=== PATIENT | male | born 1970 | race Caucasian/White ===

== ENCOUNTER 2023-05-11 08:40 | Observation (INO) | payer BC, SELFPAY ==
[2023-05-11 08:47] VITALS: BP 131/80; PULSE 90; RESP 18; TEMP 37.1; O2SAT 98
--- NOTE | 2023-05-11 09:00 | DI.RAD_ITS ---
Exam(s) XR HUMERUS RT EXAM: XR HUMERUS RT CLINICAL HISTORY: fall, prox thigh pain. TECHNIQUE: 2D digital imaging was performed of the right humerus. Two images were obtained. AP and lateral views were obtained. COMPARISON: No exams were available for comparison FINDINGS: BONES: No acute fracture is present. No bony destructive lesion is seen. Visualized portion of elbow and shoulder joints are unremarkable. SOFT TISSUE: Normal. IMPRESSION: No acute fracture or dislocation. DATA REPOSITORY: RADIATION DOSE DELIVERED:
--- NOTE | 2023-05-11 09:00 | DI.RAD_ITS ---
Exam(s) XR PELVIS AP EXAM: XR PELVIS AP CLINICAL HISTORY: r hip pain post fall. TECHNIQUE: 2D digital imaging was performed.One images were obtained. COMPARISON: No exams were available for comparison FINDINGS: BONES: No acute fracture is present. No bony destructive lesion is seen. JOINTS: No dislocation present. No joint space narrowing is present. SOFT TISSUE: Normal. IMPRESSION: No acute fracture or dislocation. DATA REPOSITORY: RADIATION DOSE DELIVERED:
--- NOTE | 2023-05-11 09:07 | ED.GENADUL_ITS ---
HPI General Date/Time Provider Initiated Documentation: 05/11/23 08:44 . HPI Narrative: 52-year-old male history of MS, presents in mechanical slip and fall on ice yesterday falling onto his right hip, pain to hip unable to bear weight. Related Data Home Medications Medication Instructions Recorded Confirmed gabapentin 300 mg capsule 300 mg PO TID 05/11/23 05/11/23 Allergies Allergy/AdvReac Type Severity Reaction Status Date / Time No Known Allergies Allergy Unverified 05/11/23 08:50 General Stated Complaint: Orthopedic DEMI: 3 Review of Systems Narrative: Review of Systems Constitutional: negative Eyes: negative ENT: negative Cardiovascular: negative Respiratory: negative Gastrointestinal: negative : negative Musculoskeletal: Right hip pain Skin: negative Neurologic: negative Psych: negative Exam Narrative Exam Narrative: Physical Examination General: alert, awake, cooperative, resting comfortably, no acute distress HEENT: normocephalic, atraumatic; PERRL, EOM intact, conjunctiva normal; no nasal discharge; moist mucous membranes, oral and pharyngeal mucosa normal, tolerating secretions Neck: supple, trachea midline; full ROM Chest: normal to inspection Respiratory: normal respiratory effort, speaking in full sentences, clear to auscultation, no wheezing, rales or rhonchi Cardiac: regular rate, regular rhythm, S1S2 intact, no murmurs rubs or gallops GI: abdomen soft, non-tender, non-distended; no palpable mass or hepatosplenomegaly Back: No back tenderness on palpation Skin: no lesions, rashes or trauma appreciated Neuro: AAOx3, normal speech, moving all extremities Extremities: Right lower extremity: Unable to range right hip due to pain severe in nature, flexion extension and knee intact, dorsiflexion plantarflexion of foot intact, sensation limb intact, DP pulse intact, no appreciable foreshortening or rotation, compartments soft; pelvis stable Psych: Appropriate mood and affect Course Vital Signs Vital signs: Vital Signs Temperature 37.1 C 05/11/23 08:47 Pulse 90 05/11/23 08:47 Respiratory Rate 18 05/11/23 08:47 Blood Pressure 131/80 05/11/23 08:47 Pulse Oximetry 98 05/11/23 08:47 Temperature 37.1 C 05/11/23 08:47 Temperature Source Temporal Artery Scan 05/11/23 08:47 Pulse 90 05/11/23 08:47 Respiratory Rate 18 02/13/24 08:47 Blood Pressure 131/80 05/11/23 08:47 Blood Pressure Position Sitting 05/11/23 08:47 Pulse Oximetry 98 05/11/23 08:47 Oxygen Delivery Method Room Air 05/11/23 08:47 Oxygen Flow Rate 0 05/11/23 08:47 Pain Level 10 05/11/23 08:52 Medical Decision Making 52-year-old male history of MS presents after mechanical slip and fall on ice yesterday, pain to right hip, unable to bear weight, range of motion at right hip limited by discomfort severe in nature, no limb for shortening or rotation appreciated, pelvis stable upon palpation, tenderness over proximal lateral thigh, soft compartments, warm well-perfused extremity DP pulse intact sensate, range of motion at knee ankle and foot intact, no cranial thoracic or abdominal trauma noted, no spinal tenderness on examination, patient hemodynamically stable although uncomfortable. Will load with IV fentanyl, will draw basic labs for likely admission concern for hip fracture versus dislocation versus pelvic fracture. Screening x-rays close reassessment of discomfort 15: 29 x-ray is unremarkable however given patient's degree of pain high clinical suspicion for occult fracture, CT positive for right acetabular fract ure nondisplaced. Discussed case with Dr. Law of orthopedic surgery who instructs toe-touch level of weightbearing right lower extremity with aid of crutches/walker as tolerated, however patient can barely tolerate small motions and movement upon transferring in bed and transferring to imaging table, patient unable to perform toe-touch level weightbearing, have reached out to orthopedic team at [facility] for possible operative intervention, otherwise patient will need admission for pain control possible rehabilitation placement. 15: 22 [facility] has declined due to capacity issue. [facility] is also declined. Awaiting to hear back from [facility] as well as [facility] [[email or web address] If no surrounding facilities able to accept patient to be admitted here for pain control and likely rehabilitation placement. Dr. Castro has consulted on case and has left recommendations regarding physical therapy and anticoagulation. 17: 03 discussed case with orthopedic physician Dr. Ramsey at [facility] [[email or web address]] who is reviewing imaging. Awaiting to hear back regarding potential transfer for operative treatment. Patient federico hemodynamically stable resting comfortably no acute distress has been n.p.o. Quality:SDOH Health Related Social Needs: No Data to Display PFSH All Active Problems (Updated 05/11/23 @ 17:05 by Gray Sanchez MD) Acetabulum fracture, right (Acute) Fracture of right acetabulum (Acute 05/10/23) Social History Smoking/Tobacco Use Status: Current every day Tobacco Type: e-cigarettes Smoking risk assessment performed?: Yes Alcohol Intake: current Alcohol Intake frequency: holidays/special occasions only Alcohol type: beer Drug use: Daily Substance use type: marijuana PAWSS Have you Been Recently Intoxicated or Drunk Within the Last 30 days?: No Have you Ever Experienced Previous Episodes of Alcohol Withdrawal?: No Have you ever Experienced Withdrawal Seizures?: No Have you ever Experienced Delirium Tremens(DT)s?: No Have you ever undergone Alcohol Rehabilitation Treatment (i.e, inpt ot outpatient treatment programs)?: No Have you ever Experienced Blackouts?: No Have you ever Combined Alcohol with other Downers within the last 90 days?: No Have you ever Combined Alcohol with any other Substance of Abuse during the last 90 days?: No Result: 0 Discharge Plan Discharge Details Chief Complaint: Orthopedic Clinical Impression: Acetabulum fracture, right Primary Care Provider: Unknown,Unknown ED Provider: Gray Sanchez [place] Meds and New Rx's Prescriptions: No Action gabapentin 300 mg capsule 300 mg PO TID
--- OUTSIDE RECORDS SUMMARY | 2023-05-11 09:07 | XMS_ITS | Patient Health Record ---
Author Name Unknown Organization [facility] Address [address] [facility] [address] [place] [address] Care Team Providers Care Bill Hiker Name Role Phone Jose Ghulam Primary Care Provider Irina Coleman Unavailable [phone] ALLERGIES No Known Allergies REASON FOR REFERRAL No Information MEDICATIONS Medication SIG (Take, Route, Frequency, Duration) Notes Start Date End Date Status Clonazepam 1 MG 1 tablet Orally daily as needed for 30 day(s) 09/03/2022 Active Gabapentin 300 MG 1 capsule Orally Once a day prn for MS Active Nirmatrelvir&Riton avir 300/100 20 x 150 MG & 10 x 100MG 2 tablets mirmatrelvir and 1 tablet ritonavir Orally twice daily for 5 days Paxlovid (300/100) 20 x 150 MG & 10 x 100MG Tablet Therapy Pack , 2 tablets nirmatrelvir and 1 tablet ritonavir Orally twice a day , for 5 days , D: 1 Pack , R: 0 02/03/2023 Active Adderall XR 20 MG 1 capsule in the morning Orally Once a day for 30 days Active Sildenafil Citrate (20mg) 20 MG 2-5 tablets Orally Once a day, as needed for 30 day(s) 07/18/2021 11/24/2023 Active Ibuprofen 800 MG 1 tablet with food or milk Orally twice a day as needed for 90 days 05/27/2021 Active Ocrevus 300 MG/10ML Intravenous infusion Active IMMUNIZATIONS Vaccine Route Administration Date Status Comme nts Influenza (pharmacy) Unknown 01/04/2020 Administered INFLUENZA ADULT SINGLE DOSE IM Intramuscular 01/09/2022 Administered SOCIAL HISTORY Tobacco Use: Social History Observation Description Date Details (start date - stop date) Former Smoker NA - NA Sex Assigned At : Social History Observation Description Sex Assigned At Unknown TOBACCO Question Answer Notes STATUS Former smoker Quit in year: ? PROBLEMS Problem Type ICD Code Onset Dates Problem Status W/U Status Risk SNOMED Code Notes Problem Attention-deficit hyperactivity disorder, unspecified type (F90.9) Active confirmed Attention deficit hyperactivity disorder (327526408) Problem -Anxiety disorder (F41.9) Active confirmed Anxiety state (424337799) Problem -Multiple sclerosis (G35) Active confirmed Multiple sclerosis (93584430) Problem -Erectile Dysfunction ED (N52.9) Active confirmed Impotence of organic origin (166005740) Problem -Insomnia (G47.00) Active confirmed Ins omnia (178882065) Problem Attention deficit disorder of adult with hyperactivity (F90.0) Active confirmed Attention deficit hyperactivity disorder, predominantly inattentive type (44675221) Problem Alcoholism (F10.20) Active confirmed Al coholism (9427123) 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 54403551 Problem COVID-19 vaccine series completed (Z92.29) Active confirmed History of drug therapy (875804780) Pfizer dose 1: 06/22/20, dose 2: 07/13/20 VITAL SIGNS Height 68.5 in 09/03/2022 Weight 145 lbs 09/03/2022 BMI 21.72 kg/m2 09/03/2022 Encounters Encounter Location Date Provider Diagnosis [place] [address] [place] [address] 07/22/2022 Ghulam Garcia Attention-deficit hyperactivity disorder, unspecified type F90.9 and -Insomnia G47.00 [facility] [address] [place] [address] 07/23/2022 Ghulam Garcia Attention-deficit hyperactivity disorder, unspecified type F90.9 and -Insomnia G47.00 [facility] [address] [place] [address] 08/19/2022 Ghulam Garcia Attention-deficit hyperactivity disorder, unspecified type F90.9 [facility] [address] [place] [address] 12/01/2022 Ghulam Garcia [facility] [address] [place] [address] 09/03/2022 Ghulam Garcia Attention-deficit hyperactivity disorder, unspecified type F90.9 and -Anxiety disorder F41.9 [facility] [address] [place] [address] 02/03/2023 rIina Coleman COVID-19 U07.1 [facility] [address] [place] [address] 07/10/2022 Ghulam Garcia [facility] [address] [place] [address] 07/23/2022 Ghulam Garcia [facility] [address] [place] [address] 08/19/2022 Ghulam Garcia [facility] [address] [place] [address] 10/26/2022 Ghulam Garcia [facility] [address] [place] [address] 10/30/2022 Ghulam Garcia [facility] [address] [place] [address] 11/03/2022 Ghulam Garcia [facility] [address] [place] [address] 01/12/2023 Ghulam Garcia Rib pain on right side R07.81 [facility] [address] [place] [address] 02/01/2023 Ghulam Garcia [facility] [address] [place] [address] 02/02/2023 Ghulam Garcia [facility] [address] [place] [address] 02/22/2023 Ghulam Garcia ASSESSMENTS Encounter Date Diagnosis Assessment Notes Treatment Notes Treatment Clinical Notes 02/03/2023 COVID-19 (ICD-10 - U07.1) Discussed conservative treatment measures - discussed fluids, rest, hydration, deep breathing and self isolation even in home discussed absolute need to call back for any worsening at all or 911 if ever any distress. call back if worsening sx, certainly if CP/SOB/GONZALEZ 07/23/2022 Attention-deficit hyperactivity disorder, unspecified type (ICD-10 - F90.9) 07/22/2022 Attention-deficit hyperactivity disorder, unspecified type (ICD-10 - F90.9) 08/19/2022 Attention-deficit hyperactivity disorder, unspecified type (ICD-10 - F90.9) 09/03/2022 Attention-deficit hyperactivity disorder, unspecified type (ICD-10 - F90.9) 90 days of CONTROLLED SUBSTANCE written, as 3 separate 30 day printed prescriptions, patient will return for pickup of prescriptions first RX dated for today 09/03/2022 -Anxiety disorder (ICD-10 - F41.9) Medication indication is reviewed, and patient questioned re side effects; Effectiveness assessed through history, and made active decision, with patient engagement to continue this treatment. Alternatives were discussed where applicable. One prescription typically lasts patient 3 months printed one prescription and handed up for pickup, contract on file and up to date 01/12/2023 Rib pain on right side (ICD-10 - R07.81) 07/22/2022 -Insomnia (ICD-10 - G47.00) 07/23/2022 -Insomnia (ICD-10 - G47.00) 09/03/2022 Other This patient understands that this is a TELE-HEALTH assessment and management in lieu of an in-office [id number] visit. The patient agrees to this visit type, and understand that there will be a visit charge similar to in office visits. PLAN OF TREATMENT No Information Insurance Providers Payer Name Payer Address Payer Phone Subscriber Number Group Number Insured Name Patient Relationship to Insured Coverage Start Date Coverage End Date [employer] Plan(ZIG, ZII) [address] [place] [address] [id number] Tulio Strange Self - patient is the insured 9 MEDICAL (GENERAL) HISTORY Medical History History ICD Code Multiple Sclerosis ADD VPMS check06/2022, Controlled substance c ontract UTD, 03/2022..TL Surgical History Surgery Date(Month/Year) Hernia
[2023-05-11] MEDS: fentaNYL 100 MCG/2 ML VIAL 50 MCG IVP ×3 (09:18→21:25)
[2023-05-11 09:27] LABS: Abs Immature Grans 0.05 10^3/uL (0.0-0.06); Absolute Basophil Count 0.07 10^3/uL (0.0-0.2); Absolute Eosinophil Count 0.02 10^3/uL (0.0-0.7); Absolute Monocyte Count 1.69 10^3/uL (0.1-0.8); Basophils % 0.4; Eosinophils % 0.1; HGB 12.7 g/dL (13.5-17.5); Immature Grans % 0.3; Lymphocytes % 10.3; MCH 30.3 pg (27.0-33.0); MCHC 34.3 % (32.0-36.0); MCV 88 fL (80-95); MPV 8.3 fL (8.0-11.0); Monocytes % 10.3; Neutrophils % 78.6; Platelet Count 419 10^3/uL (130-400); RBC 4.19 10^6/uL (4.36-5.78); RDW 13.3 % (11.8-14.1); RDW-SD 43.5 fL; WBC 16.44 10^3/uL (4.4-10.8)
[2023-05-11 09:29] LABS: Absolute Lymphocyte Count 1.69 10^3/uL (1.2-3.4); Absolute Neutrophil Count 12.92 10^3/uL (1.2-6.7)
[2023-05-11 09:35] LABS: ALT 22 U/L (16-63); AST 19 U/L (15-37); Albumin 4.1 g/dL (3.4-5.0); Alkaline Phosphatase 99 U/L (46-116); Anion Gap 12.3 mmol/L (3-11); BUN 11 mg/dL (7-18); Bilirubin, Total 0.9 mg/dL (0.2-1.0); CO2 27.7 mmol/L (21.0-32.0); CREATININE 1.1 mg/dL (0.70-1.30); Calcium 9.2 mg/dL (8.5-10.1); Chloride 102 mmol/L (98-107); Estimated GFR 81.28 (mL/min/1.73m2); Glucose 111 mg/dL (74-106); Potassium 3.1 mmol/L (3.5-5.1); Sodium 142 mmol/L (136-145); Total Protein 7.2 g/dL (6.4-8.2)
[2023-05-11] MEDS: fentaNYL 100 MCG/2 ML VIAL 25 MCG IVP ×2 (09:36→11:13)
[2023-05-11 09:44] LABS: Diff Comment Diff Reviewed; RBC Morphology Normal
--- NOTE | 2023-05-11 10:51 | DI.CT_ITS ---
Exam(s) CT LOWER EXTREMITY RT WO EXAM: CT LOWER EXTREMITY RT WO CLINICAL HISTORY: fall, right hip pain, unable to walk. TECHNIQUE: Imaging Protocol: Axial computed tomography images with coronal and sagittal reformatted images were created and reviewed. COMPARISON: CR XR FEMUR RT from 05/11/2023 FINDINGS: Bones: There is an acute nondisplaced fracture of the anterior column of the right acetabulum. Ther e is no femoral fracture. Bony alignment is satisfactory. No cellulitic or osteomyelitic changes ar e identified. There is no evidence of joint space narrowing or cystic degeneration seen. No lytic or sclerotic lesions are identified. Soft Tissues: Vascular calcifications are present. IMPRESSION: 1. Acute nondisplaced fracture of the anterior column of the right acetabulum. 2. No evidence of a femoral fracture. RADIATION DOSE DELIVERED: 415.91mGy.cm Total DLP 415.91mGy.cm Total DLP DATA REPOSITORY: All CT scans at this facility are submitted to the National Radiology Data Registry (NRDR) Dose Index Registry (DIR) with the [employer] (ACR). RADIATION OPTIMIZATION: All CT scans at this facility use at least one of these dose optimization te chniques: automated exposure control; mA and/or kV adjustment per patient size (includes targeted exa ms where dose is matched to clinical indication); or iterative reconstruction.
--- NOTE | 2023-05-11 10:51 | DI.CT_ITS ---
Exam(s) CT PELVIC WO EXAM: CT PELVIC WO CLINICAL HISTORY: fall, right hip pain. TECHNIQUE: Imaging Protocol: Axial computed tomography images with coronal and sagittal reformatted images were created and reviewed. COMPARISON: CR XR PELVIS AP from 05/11/2023 CR XR FEMUR RT from 05/11/2023 FINDINGS: Bones: There is an acute nondisplaced fracture involving the anterior column of the right acetabulum . Bony alignment is satisfactory. No cellulitic or osteomyelitic changes are identified. There is no evidence of joint space narrowing or cystic degeneration seen. No lytic or sclerotic lesions are i dentified. Soft Tissues: There is thickening of the right obturator internus muscle which may represent a hemato ma. IMPRESSION: 1. Nondisplaced acute fracture involving the anterior column of the right acetabulum. 2. Thickening of the right obturator internus muscle which may represent an intramuscular hematoma. RADIATION DOSE DELIVERED: 252.41mGy.cm Total DLP 252.41mGy.cmTotal DLP DATA REPOSITORY: All CT scans at this facility are submitted to the National Radiology Data Registry (NRDR) Dose Index Registry (DIR) with the [employer] (ACR). RADIATION OPTIMIZATION: All CT scans at this facility use at least one of these dose optimization te chniques: automated exposure control; mA and/or kV adjustment per patient size (includes targeted exa ms where dose is matched to clinical indication); or iterative reconstruction.
--- NOTE | 2023-05-11 10:57 | DI.RAD_ITS ---
Exam(s) XR FEMUR RT EXAM: XR FEMUR RT CLINICAL HISTORY: right leg pain. TECHNIQUE: 2D digital imaging was performed of the right femur. Four images were obtained. AP and l ateral views were obtained. COMPARISON: No exams were available for comparison FINDINGS: BONES: No acute fracture is present. No bony destructive lesion is seen. Visualized portion of knee a nd hip joints are unremarkable. Note is made of the proximal portion of an intramedullary jefry in the proximal tibia. SOFT TISSUE: Normal. IMPRESSION: No acute fracture or dislocation. DATA REPOSITORY: RADIATION DOSE DELIVERED:
--- NOTE | 2023-05-11 11:04 | DI.CT_ITS ---
Exam(s) CT LUMBAR SPINE WO EXAM: CT LUMBAR SPINE WO CLINICAL HISTORY: fall, right hip leg pain. TECHNIQUE: Imaging Protocol: Axial computed tomography images with coronal and sagittal reformatted images were created and reviewed. COMPARISON: No exams were available for comparison FINDINGS: Bones: There is an acute nondisplaced fracture involving the anterior column of the right acetabulum. No lumbar spine fracture is seen. The alignment of the spine is normal including the thoracolumbar junction. The sacroiliac joints are well maintained. Soft tissues: The soft tissues of the visualized abdomen and chest are unremarkable. No large disk he rniations are identified. IMPRESSION: 1. No acute fracture or subluxation in the lumbar spine. 2. Acute nondisplaced fracture involving the anterior column of the right acetabulum. 3. Findings were discussed with Dr. Sanchez at 12:29 p.m. on 05/11/2023. RADIATION DOSE DELIVERED: 509.96mGy.cm Total DLP 509.96mGy.cm Total DLP DATA REPOSITORY: All CT scans at this facility are submitted to the National Radiology Data Registry (NRDR) Dose Index Registry (DIR) with the [employer] (ACR). RADIATION OPTIMIZATION: All CT scans at this facility use at least one of these dose optimization te chniques: automated exposure control; mA and/or kV adjustment per patient size (includes targeted exa ms where dose is matched to clinical indication); or iterative reconstruction.
--- NOTE | 2023-05-11 13:15 | W.ORTHOCONSU ---
Date of service: 05/11/23 Time of Service: 13:15 Assessment and Plan Assessment and plan (1) Fracture of right acetabulum: Status: Acute Assessment and plan: 52-year-old male with multiple sclerosis with nondisplaced right anterior column acetabular fracture after mechanical fall onto ice yesterday Discussed with emergency room doctor. X-rays and CT scan reviewed. Recommend toe-touch weightbearing (less than 10%) with crutches or walker for about 6-8 weeks. Consider DVT prophylaxis. Follow-up with [facility] trauma orthopedic surgery in 1 week check alignment. If unable to mobilize, consider reaching out to [facility] orthopedic surgery as pain from instability might indicate need for surgical fixation, which we do not do here at [facility], in order to optimize mobility. PFSH All Active Problems (Updated 05/11/23 @ 13:15 by Roosevelt Law MD) Fracture of right acetabulum (Acute 05/10/23) Social History Smoking/Tobacco Use Status: Current every day Tobacco Type: e-cigarettes Smoking risk assessment performed?: Yes Alcohol Intake: current Alcohol Intake frequency: holidays/special occasions only Alcohol type: beer Drug use: Daily Substance use type: marijuana Results Last Vital Signs Temp 98.8 F 05/11/23 08:47 Pulse 90 05/11/23 08:47 Resp 18 05/11/23 08:47 BP 131/80 05/11/23 08:47 Pulse Ox 98 05/11/23 08:47 Labs 05/11/23 09:15 05/11/23 09:15 Labs: Laboratory Results - last 24 hr 05/11/23 09:15 WBC 16.44 H RBC 4.19 L Hgb 12.7 L Hct 37.0 L MCV 88 MCH 30.3 MCHC 34.3 RDW 13.3 Plt Count 419 H MPV 8.3 Immature Gran % 0.3 Neutrophils % 78.6 Lymphocytes % 10.3 Monocytes % 10.3 Eosinophils % 0.1 Basophils % 0.4 Nucleated RBC % 0.0 Absolute Neutrophils 12.92 H Absolute Lymphocytes 1.69 Absolute Monocytes 1.69 H Absolute Eosinophils 0.02 Absolute Basophils 0.07 RBC Morphology Normal Sodium 142 Potassium 3.1 L Chloride 102 Carbon Dioxide 27.7 Anion Gap 12.3 H BUN 11 Creatinine 1.1 Est GFR (CKD-EPI 2020) 81.28 Glucose 111 H Calcium 9.2 Total Bilirubin 0.9 AST 19 ALT 22 Alkaline Phosphatase 99 Total Protein 7.2 Albumin 4.1
[2023-05-11] MEDS: ACETAMINOPHEN 1,000 MG/100 ML BTL 400 MG IVPB (15:43)
[2023-05-11] MEDS: Gabapentin 300 MG CAP PO ×2 (15:43→21:39)
[2023-05-11] MEDS: Ketorolac 15 MG/ML VIAL IVP (15:43)
--- NOTE | 2023-05-11 17:09 | ED.PROG_ITS ---
Date of service: 05/11/23 Time of Service: 17:37 Medical Decision Making This patient was signed out to me. Please see previous notes for H&P and initial eval. In brief, 52yo M with pelvic fracture. [facility] orthopedics rec toe-touch weight bearing, consider pinning if unable to ambulate with this however do not do this particular procedure here. Multiple facilities declined pt. Signed out pending response from [facility]; if unable to transfer would admit here for pain control/PT/likely rehab placement. Discussed with Dr. Ramsey from [facility] orthopedics; fracture felt to be non-operative. Discussed with hospitalist health education aide Dr. Sandoval and accepted to medicine service. Awaiting admission orders and transfer to the floor. Quality:[facility] Health Related Social Needs: No Data to Display Sign Out Sign Out Data: Sign Out Comment: R acetabular fracture, awaiting callback for [facility] ortho regarding possible operative repair; declined at [facility], [facility]; per Dr. Mcconnell, if [facility] declines, admit here at [facility] for pain control, PT, and rehab as well as anticoagulation with lovenox during immobile period Last updated by Gray Sanchez MD at 05/11/23 17:06 Discharge Plan Disposition Patient Disposition: Admit to [facility] Condition: Serious Discharge Details Chief Complaint: Orthopedic Clinical Impression: Acetabulum fracture, right Primary Care Provider: Unknown,Unknown ED Provider: Maday Whyte Home Meds and New Rx's Prescriptions: No Action gabapentin 300 mg capsule 300 mg PO TID
--- NOTE | 2023-05-11 17:09 | W.EDPROG ---
Date of service: 05/11/23 Time of Service: 17:37 Medical Decision Making This patient was signed out to me. Please see previous notes for H&P and initial eval. In brief, 52yo M with pelvic fracture. [facility] orthopedics rec toe-touch weight bearing, consider pinning if unable to ambulate with this however do not do this particular procedure here. Multiple facilities declined pt. Signed out pending response from [facility]; if unable to transfer would admit here for pain control/PT/likely rehab placement. Discussed with Dr. Ramsey from [facility] orthopedics; fracture felt to be non-operative. Discussed with hospitalist food demonstrator Dr. Sandoval and accepted to medicine service. Awaiting admission orders and transfer to the floor. Quality:[facility] Health Related Social Needs: No Data to Display Sign Out Sign Out Data: Sign Out Comment: R acetabular fracture, awaiting callback for [facility] ortho regarding possible operative repair; declined at [facility], [facility]; per Dr. Mcconnell, if [facility] declines, admit here at [facility] for pain control, PT, and rehab as well as anticoagulation with lovenox during immobile period Last updated by Gray Sanchez MD at 05/11/23 17:06 Discharge Plan Disposition Patient Disposition: Admit to [facility] Condition: Serious Discharge Details Chief Complaint: Orthopedic Clinical Impression: Acetabulum fracture, right Primary Care Provider: Unknown,Unknown ED Provider: Maday Whyte Home Meds and New Rx's Prescriptions: No Action gabapentin 300 mg capsule 300 mg PO TID
--- NOTE | 2023-05-11 18:31 | HPE_ITS ---
Date of service: 05/11/23 Time of Service: 18:31 Assessment and Plan Assessment and plan (1) Acetabulum fracture, right: Status: Acute Assessment and plan: Acetabular fracture. Pain control and PT, will consult Ortho. Otherwise usual Gabapentin as is and patient requests Tyl-PM hs History of Present Illness History of Present Illness Chief Complaint: hip pain Narrative: 52 male with MS. Fell on ice, landed on left side with immediate pain. In ER findings of note for acetabular fracture. Per Ortho this defaults to non- operative management, though if it requires surgery we do not have the required equipment here. Patient declined at multiple facilities and is admitted here for pain control and PT. Patient states pain is partially controlled, having had multiple doses of fentanyl. I was asked to evaluate for admission. Review of Systems Narrative: per HPI PFSH All Active Problems Acetabulum fracture, right (Acute) Fracture of right acetabulum (Acute 05/10/23) Social History Smoking/Tobacco Use Status: Current every day Tobacco Type: e-cigarettes Smoking risk assessment performed?: Yes Alcohol Intake: current Alcohol Intake frequency: holidays/special occasions only Alcohol type: beer Drug use: Daily Substance use type: marijuana Meds Allergies and Home Medications Allergies Allergy/AdvReac Type Severity Reaction Status Date / Time No Known Allergies Allergy Unverified 05/11/23 08:50 Home Medications Medication Instructions Recorded Confirmed Type gabapentin 300 mg capsule 300 mg PO TID 05/11/23 05/11/23 History Exam Narrative Exam Narrative: 131/80, 90, 37.1, 18, 98% RA. HEENT atraumatic; neck supple; lungs clear; heart RRR; abdomen soft and NT; extremities RLE everted but not foreshortened, distal CSM intact, pedal pulses full; neuro Ox3, lucid, moves all 4s Results Labs 05/11/23 09:15 05/11/23 09:15 Labs: Laboratory Results - last 24 hr 05/11/23 09:15 WBC 16.44 H RBC 4.19 L Hgb 12.7 L Hct 37.0 L MCV 88 MCH 30.3 MCHC 34.3 RDW 13.3 Plt Count 419 H MPV 8.3 Immature Gran % 0.3 Neutrophils % 78.6 Lymphocytes % 10.3 Monocytes % 10.3 Eosinophils % 0.1 Basophils % 0.4 Nucleated RBC % 0.0 Absolute Neutrophils 12.92 H Absolute Lymphocytes 1.69 Absolute Monocytes 1.69 H Absolute Eosinophils 0.02 Absolute Basophils 0.07 RBC Morphology Normal Sodium 142 Potassium 3.1 L Chloride 102 Carbon Dioxide 27.7 Anion Gap 12.3 H BUN 11 Creatinine 1.1 Est GFR (CKD-EPI 2020) 81.28 Glucose 111 H Calcium 9.2 Total Bilirubin 0.9 AST 19 ALT 22 Alkaline Phosphatase 99 Total Protein 7.2 Albumin 4.1 Last Vital Signs Temp 37.1 C 05/11/23 08:47 Pulse 90 05/11/23 08:47 Resp 18 05/11/23 08:47 BP 131/80 05/11/23 08:47 Pulse Ox 98 05/11/23 08:47 PAWSS Have you Been Recently Intoxicated or Drunk Within the Last 30 days?: No Have you Ever Experienced Previous Episodes of Alcohol Withdrawal?: No Have you ever Experienced Withdrawal Seizures?: No Have you ever Experienced Delirium Tremens(DT)s?: No Have you ever undergone Alcohol Rehabilitation Treatment (i.e, inpt ot outpatient treatment programs)?: No Have you ever Experienced Blackouts?: No Have you ever Combined Alcohol with other Downers within the last 90 days?: No Have you ever Combined Alcohol with any other Substance of Abuse during the last 90 days?: No Result: 0 Time Spent Time spent with Patient: <40 minutes Time was spent: preparing to see the patient(eg.review tests), obtaining and/or reviewing separately otained hiistory, ordering medications,tests, procedures, referring, communicating with other health respiratory care assistant and indepentently interpreting results
[2023-05-11 20:07] VITALS: BP 153/79; PULSE 77; RESP 16; TEMP 36.9; O2SAT 98
[2023-05-11] MEDS: oxyCODONE 5 MG TAB PO (21:38)
[2023-05-11] MEDS: Enoxaparin 80 MG/0.8 ML SYR 70 MG SC (21:39)
[2023-05-12] MEDS: fentaNYL 100 MCG/2 ML VIAL 50 MCG IVP (04:47)
[2023-05-12] MEDS: oxyCODONE 5 MG TAB PO ×4 (04:47→20:48)
[2023-05-12 07:36] VITALS: BP 120/78; PULSE 65; RESP 20; TEMP 36.5; O2SAT 98
[2023-05-12] MEDS: Acetaminophen 325 MG TAB 1000 MG PO (07:59)
[2023-05-12] MEDS: Pantoprazole 40 MG TABCR PO (08:00)
[2023-05-12] MEDS: Gabapentin 300 MG CAP PO ×3 (08:00→19:26)
[2023-05-12] MEDS: Normal Saline Flush 10 ML SYR ×2 (09:59→12:12)
--- NOTE | 2023-05-12 11:04 | PT.INIE ---
PT Notes Visit Reasons: right acetabular fracture Inpatient Physical Therapy Evaluation Date: 05/12/23 Referring Doctor: Dr. Vicente PT Orders: PT CONSULT: limited ability to ambulate Precautions: TTWB RLE (<10%) Patient Profile/Admitting Diagnosis: Patient admitted yesterday, 05/11/23 after fall on ice resulting in right acetabular fracture. PMH significant for MS. Social History/Home Situation: Patient lives in a second floor apartment with full flight of stairs to enter, single rail on left side. He lives alone. 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 Independent at baseline without device. Was skiing day of accident. Equipment Owned/DME: none Subjective: Antunez states that his pain is well managed currently, having pain meds about 20 minutes prior to PT consult. He states that he is very active and independent normally. He has some UE/LE paresthesias due to his MS, but no significant sensory loss or balance impairment that he is aware of. Objective: General Observation: Resting in bed. IV in RUE. No additional lines. Mental Status: Alert and cooperative throughout. Repeats questions multiple times throughout session, particularly regarding allowable weight bearing and how long he'll be requiring crutches. Requires frequent reminders on sequencing, with limited carry over. Demonstrates limited safety awareness, initiating transfer without assistive device on 3 occasions, and requiring max cues for safety. Pain: well managed at initiation of session, increasing throughout session ROM: Right Upper Extremity: WFL Left Upper Extremity: WFL Right Lower Extremity: Patient demonstrates full AROM of right hip independently during session. Sits with right leg crossed over left, then with right hip maximally flexed in recliner chair. Cued for avoidance of extremes of motion to prevent pain exacerbation. Left Lower Extremity: WFL Strength: Right Upper Extremity: Grossly 5/5 for all motions Left Upper Extremity: Grossly 5/5 for all motions Right Lower Extremity: Hip flexion 3/5 or greater. Quads 3/5 or greater. Ankle DF 3/5 or greater. Left Lower Extremity: Hip flexion 5/5. Quads 5/5. HS 5/5. Ankle DF 5/5 Bed Mobility/Transfers: supine-sit: independent sit-stand: SBA, with need for cues for safety stand-sit: SBA with need for cues for safety Gait: Ambulates 150' x 1 initially with FWW, demonstrating good maintenance of TTWB RLE. Able to transition to use of crutches; able to ambulate 150'x2 with CGA but requiring max cues for sequencing. He demonstrates NWB RLE with crutches, and is cued for step through pattern. Stairs: Able to ascend and descend therapeutic stairs (4x3, 2 reps) with unilateral rail, both crutches in opposite hand, step to pattern with TTWB RLE. Requires constant cues for technique. Balance: Static Sitting: normal Dynamic Sitting: normal Static Standing: good Dynamic Standing: fair Special Tests: Mobility Limitations Standardized Measure [facility] AM-PAC 6 clicks Basic Mobility Inpatient Short Form: Raw Score: 20 CMS Score: 36% Informed Consent/Education: Patient instructed in purpose of PT consult and plan of care. Treatment : Initial Evaluation (10956) Gait Training: (43492): Gait and stair training as above. Educated on TTWB status. Assessment: Patient is a 52 year old male referred to physical therapy services with the diagnosis of right acetabular fracture, with orders for TTWB for 6-8 weeks. Patient presents with clinical signs and symptoms consistent with diagnosis. He demonstrates good strength and balance, although diminished safety awareness and carryover with gait/transfer technique and maintenance of weight bearing restrictions. He requires 2 additional PT sessions to allow for continued gait and transfer training in order to maximize safety and compliance with weight bearing restriction. Will require axillary crutches at discharge. He currently demonstrates the following impairment level findings: 1. TTWB RLE 2. gait impairments 3. decreased safety awareness Impairments are contributing to the following functional limitations: 1. Decreased safety with ambulation 2. limited carryover with management of axillary crutches Patient is assessed as a Low 81312 complexity based on the following: History: Patient is a 52 year old male, 1 day s/p right acetabular fracture, now TTWB for 6-8 weeks. He demonstrates limitations in safety awareness and carry over with equipment management. Complicating factor of MS. Examination: functional limitations as noted above Presentation: evolving Decision Making: low complexity Goals: Goals X1 week 1. Supine-Sit : independent 2. Sit-Supine : independent 3. Sit-Stand : independent 4. Stand-Sit : independent 5. Bed-Chair : independent with bilat axillary crutches 6. Chair-Bed : independent with bilat axillary crutches 7. Gait : supervision x 150' with bilat axillary crutches 8. Stairs supervision with single rail and contralateral UE support to crutches Plan of Care/Treatment Plan: 1-2x/day, 7 days/week x 1 week. Plan of care has been reviewed with the [employer] HELPER providing the service under Physical Therapy direction. Initiate Physical Therapy intervention for strengthening, bed mobility, transfers, gait, stairs, balance training, use of assistive device. DISCHARGE RECOMMENDATIONS: Home with outpatient PT for continued gait training TREATMENT CODE/TIME: [id number] (04206, [id number]) Thank you for this referral! Felicia Thakkar, PT, DPT [facility] Please sign an return this page within 30 days if you agree with the above POC. Thank you! Physician Signature Date [facility]
--- NOTE | 2023-05-12 11:33 | PHA.REVIEW2 ---
Pharmacy Admission Review Admission Clinical Review Admission Pharmacy Review: Acetabulum fracture, right (Acute) Fracture of right acetabulum (Acute 05/10/23) No Known Allergies Allergy (Unverified 05/11/23 08:50) Resuscitation Status Full Code Height 5 ft 9 in Weight 68.039 kg Pharmacy Admission Review Renal Dosing Renal Dosing: BUN 11 mg/dL (7-18) 05/11/23 09:15 Creatinine 1.1 mg/dL (0.70-1.30) 05/11/23 09:15 Medications needing adjustments: Reviewed (crcl = 76, no adjustments needed) Anticoagulation Anticoagulation: Hgb 12.7 g/dL (13.5-17.5) L 05/11/23 09:15 Hct 37.0 % (40.0-50.0) L 05/11/23 09:15 Plt Count 419 10^3/uL (130-400) H 05/11/23 09:15 Creatinine 1.1 mg/dL (0.70-1.30) 05/11/23 09:15 DVT Prophylaxis: Intervened (therapeutic lovenox 1 mg/kg BID ordered on admission, spoke w/Dr. Sandoval this morning and changed to 40 mg Q24h for DVT prophylaxis) Medications: Enoxaparin (40 mg daily) Therapeutic Anticoagulation: N/A Opiate Usage Evaluate Pain Scale/Pains Meds: Reviewed (minimal use of prn oxycodone) Scheduled Bowel Reg ordered if on Opiates?: No Relevant Labs Relevant Labs: Sodium 142 mmol/L (136-145) 05/11/23 09:15 Potassium 3.1 mmol/L (3.5-5.1) L 05/11/23 09:15 Chloride 102 mmol/L (98-107) 05/11/23 09:15 Electrolytes, C-Reactive P, ESR: Reviewed DM Control DM Control: Reviewed (no diabetes diagnosis) Cardiac Review BP, HR, EF%: Reviewed (WNL) QTc Review QTc: N/A (no EKG to review) IV to PO Switch IV Medications: Reviewed (all meds currently ordered PO (+ subQ enoxaparin)) Home Meds Home Med List reviewed: Reviewed (gabapentin ordered. recent fill history for quetiapine but not on med list, RN asking pt if this is something he is currently taking and at what dose (100 mg filled 04/18/23, 50 mg filled 04/21/23)) Relevent Home Meds Not ordered & why?: ?quetiapine Current Meds Current Medication Order Review: Reviewed
[2023-05-12] MEDS: hydrOXYzine HCL 25 MG TAB PO ×2 (12:03→20:48)
[2023-05-12] MEDS: Ibuprofen 600 MG TAB PO ×3 (12:45→19:26)
--- NOTE | 2023-05-12 13:43 | W.PM.PROGNOT ---
Date of Service Date of service: 05/12/23 Time of Service: 13:43 Assessment and Plan Assessment and plan (1) Acetabulum fracture, right: Status: Acute Assessment and plan: from mechanical fall. continue to adjust pain control as needed PT evaluation Orthopedics consulted. (2) On deep vein thrombosis (DVT) prophylaxis: Status: Acute Assessment and plan: enoxaparin daily (3) Discharge planning issues: Status: Acute Assessment and plan: anticipate a discharge to home tomorrow if pain managed and safely re-ambulated. discussed with Dr Sandoval Subjective Subjective Patient reports: pain is less, tolerating liquids well, tolerating a regular diet and voiding w/o difficulty Exam Const General: cooperative, no acute distress and anxious Nutritional Appearance: average body habitus Orientation: alert, awake and oriented x3 HENMT Head: normal to inspection, normocephalic and atraumatic General nose exam: external nose normal Face and sinus: normal facial exam Mouth: oral mucosae normal Neck Neck: normal visual inspection and full ROM Chest Chest: normal inspection of the chest Resp Effort & Inspection: normal respiratory effort Cardio Rate: regular rate Rhythm: regular rhythm GI Inspection: normal to inspection Skin General skin exam: no rashes or lesions noted Neuro General: patient alert, patient awake and patient oriented x3 Extrem General: no pedal edema Right lower extremity: hip/thigh Details: normal to inspection, tenderness and abnormal ROM Details: pain with active ROM during (and weight bearing) Psych Appearance: grossly normal Speech and Movement: speech and movement normal Mood: anxious mood Affect: blunted Attitude: cooperative Thought Process: normal Thought Content: normal Objective Last Vital Signs Temp 36.5 C 05/12/23 07:36 Pulse 65 05/12/23 07:36 Resp 20 05/12/23 07:36 BP 120/78 05/12/23 07:36 Pulse Ox 98 05/12/23 07:36 PAWSS Have you Been Recently Intoxicated or Drunk Within the Last 30 days?: No Have you Ever Experienced Previous Episodes of Alcohol Withdrawal?: No Have you ever Experienced Withdrawal Seizures?: No Have you ever Experienced Delirium Tremens(DT)s?: No Have you ever undergone Alcohol Rehabilitation Treatment (i.e, inpt ot outpatient treatment programs)?: No Have you ever Experienced Blackouts?: No Have you ever Combined Alcohol with other Downers within the last 90 days?: No Have you ever Combined Alcohol with any other Substance of Abuse during the last 90 days?: No Result: 0 Time Spent with Patient Time Spent with Patient: <25 minutes Time was spent: preparing to see the patient(eg.review tests), obtaining and/or reviewing separately otained hiistory, ordering medications,tests, procedures, indepentently interpreting results and counseling the patient
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
[2023-05-12] MEDS: Acetaminophen 325 MG TAB 650 MG PO ×2 (14:49→19:22)
--- NOTE | 2023-05-12 16:29 | PT.INTREAT ---
Date of service: 05/12/23 Time of Service: 15:47 PT Notes Visit Reasons: Right Acetabular Fracture Inpatient Physical Therapy Treatment Note [facility] Date: 05/12/23 PRECAUTIONS: Fall, standard, activity as tolerated. NWB RLE. SUBJECTIVE: Patient reports feeling ok. Is cold, asks to wear heavy winter coat during treatment session. Declines gait belt. OBJECTIVE: Supine in bed, agreeable to therapy. ? PAIN: Patient repeatedly asks whether pain will get better, when it will get better, whether to expect it to get worse before it gets better, etc. VITALS: closely monitored by nursing staff. ? BED MOBILITY/TRANSFERS? Rolling L/R: independent Supine-sit: independent ? Sit-supine: independent. Uses both hands to lift RLE into bed. ? Sit-stand: SBA. Verbal cues to kick right leg out away, so as to preserve weightbearing precautions. ? Stand-sit: CGA. Verbal cues to kick right leg out away, so as to preserve weightbearing precaution ? Bed-Chair: SBA. Verbal cues for weightbearing precautions and demonstration as well as VC for gait sequence ? Chair-bed: SBA. Verbal cues for weightbearing precautions and demonstration as well as VC for gait sequence Gait Training ([id number]): Direct one-on-one instruction and skilled instruction in: [x] employing an assistive device [x] modified weight-bearing status [x] movement sequencing [x] turning and movement with proper form [x] Provided verbal cues for equipment management and technique [x] Provided instruction in gait pattern [] Patient education regarding pacing and breathing techniques to maximize activity tolerance? GAIT? Assistive Device: Axillary crutches ? Weight bearing: NWB RLE Assist: SBA, verbal cues, tactile cues, demonstration. ? Distance:? 150 feet ? Deviation: Patient demonstrates good awareness of weightbearing precautions during ambulation, less awareness when transitioning sit-stand or stand-sit. Frequent verbal cues needed for safe gait sequence, moving RLE with crutches and stepping through in a normal reciprocal gait pattern. ? STAIRS: ascends and descends 9 four inch stairs with single railing. Frequent verbal cues required for gait sequence throughout attempt. ? ASSESSMENT:? Patient tolerates therapy well, requires further gait training for saftey and to maximize likelihood of continued obeying WB precautions. Patient obseres that treatment session felt strenuous and that the skin of his hands hurts from the crutches. Requests a Coke. PLAN: Continue gait training per plan of care until patient is ready for discharge. Patient may benefit from HHPT for continued skills training. TREATMENT CODE/TIME: 21 minutes beginning at 15:47
--- NOTE | 2023-05-12 16:57 | CHAPLAIN ---
I had a brief visit with Tulio. He said he's fine, and was not interested in further conversation. I explained my role and offered support.
[2023-05-12 17:45] VITALS: BP 140/90; PULSE 62; RESP 18; TEMP 36.5; O2SAT 97
[2023-05-12] MEDS: LORazepam 1 MG TAB PO (20:47)
[2023-05-12] MEDS: Nicotine 2 MG LOZG SUC (20:48)
[2023-05-12] MEDS: Enoxaparin 40 MG/0.4 ML SYR SC (22:16)
[2023-05-13] MEDS: Acetaminophen 325 MG TAB 650 MG PO ×2 (02:17→07:52)
[2023-05-13 02:41] VITALS: BP 127/76; PULSE 72; RESP 14; TEMP 36.8; O2SAT 97
[2023-05-13] MEDS: oxyCODONE 5 MG TAB PO ×2 (04:16→10:23)
[2023-05-13 07:29] VITALS: BP 123/75; PULSE 83; RESP 17; TEMP 36.5; O2SAT 98
[2023-05-13] MEDS: Pantoprazole 40 MG TABCR PO (07:52)
[2023-05-13] MEDS: Ibuprofen 600 MG TAB PO ×2 (07:52→11:43)
[2023-05-13] MEDS: Gabapentin 300 MG CAP PO (07:52)
[2023-05-13] MEDS: Nicotine 2 MG LOZG SUC (08:04)
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
--- NOTE | 2023-05-13 11:17 | DSE_ITS ---
Date of service: 05/13/23 Time of Service: 11:17 DS: Diagnosis Discharge Diagnosis (1) Acetabulum fracture, right: Status: Acute Discharge Plan Disposition Patient Disposition: Home Condition: Stable Discharge Details Reason For Visit: Right Acetabular Fracture Admit Date/Time: 05/11/23 17:52 Admit Provider: Tavo Sandoval Attending Provider: Tavo Sandoval [facility] Hospital Course Hospital Course: This is a 52-year-old male patient who sustained a mechanical fall on ice. He remained home for few days but was difficult to ambulate secondary to pain so presented to the emergency department for evaluation. His workup in the emergency did show a fractured right acetabulum. Case was discussed with Dr. Law from orthopedics here who recommended pain management and partial weightbearing. His case was also discussed with orthopedics at [facility] who did not feel that he was a surgical candidate. He was unable to be safely reambulated so hospitalist services was contacted for admission. He was admitted overnight started on scheduled acetaminophen and ibuprofen. Oxycodone was added for breakthrough pain. This pain was managed on this oral regimen. He is going with physical therapy and was safely reambulated with crutches. He has been eating and drinking and bowels and bladder functioning. Will be discharged home on aspirin 81 mg twice daily for DVT prophylaxis. He should follow-up with [facility] orthopedic trauma group in 1 week for recheck. No other injuries noted from his fall. He is stable for discharge to home he will continue with outpatient physical therapy discharge discussed with DR Kyra Fong Meds and New Rx's Prescriptions: New acetaminophen 325 mg Tablet 650 mg PO Q6H Qty: 0 0RF pantoprazole 40 mg Tablet,Delayed Release (Dr/Ec) 40 mg PO DAILY@0730 Qty: 30 0RF ibuprofen 600 mg Tablet 600 mg PO QID Qty: 0 0RF oxycodone 5 mg Tablet 5 mg PO Q6H PRN PRNQty: 20 0RF aspirin 81 mg capsule 81 mg PO BID Qty: 1 0RF Continued gabapentin 300 mg capsule 300 mg PO TID Discharge Instructions Instructions: Hip Fracture (ED) Additional Instructions: Recommend toe-touch weightbearing (less than 10%) with crutches or walker for about 6-8 weeks. Follow-up with [facility] trauma orthopedic surgery in 1 week check alignment. take a baby aspirin twice daily for DVT prophylaxis for 8 weeks. Stand Alone Forms: Nursing Discharge Form Referrals: [place]THOPAEDICS,[facility] [place]] - (Pt will have to call to make apt. ) Luis Enrique Boles, PT [PHYSICAL THERAPIST] - (outpatient physical therapy) Activity:: toe-touch weightbearing Equipment/Supplies:: Crutches Diet:: As Tolerated Discharge Orders Discharge Orders: Discharge Order (Routine); Ordered 05/13/23 Ordered By: Kezia Padgett Discharge Data Discharge Date/Time-TO BE ENTERED AT DEPARTURE: 05/13/23 12:04 DS: Summary Time Spent with Patient providing and/or coordinating discharge services: Less than 30 minutes Status at Discharge Functional status at discharge: uses cane/walker Overall status at discharge: patient is progressing back to baseline Mental Status: mental status grossly normal Speech and Movement: speech and movement normal Mood: anxious mood Affect: anxious affect Quality:SDOH Health Related Social Needs: No Data to Display Exam Const General: cooperative, no acute distress and anxious Nutritional Appearance: average body habitus Orientation: alert, awake and oriented x3 HENMT Head: normal to inspection, normocephalic and atraumatic General nose exam: external nose normal Face and sinus: normal facial exam Mouth: oral mucosae normal Neck Neck: normal visual inspection and full ROM Chest Chest: normal inspection of the chest Resp Effort & Inspection: normal respiratory effort Cardio Rate: regular rate Rhythm: regular rhythm GI Inspection: normal to inspection Skin General skin exam: no rashes or lesions noted Neuro General: patient alert, patient awake and patient oriented x3 Extrem General: no pedal edema Right lower extremity: hip/thigh Details: normal to inspection, tenderness and abnormal ROM Details: pain with active ROM during (and weight bearing) Psych Appearance: grossly normal Mental Status: mental status grossly normal Speech and Movement: speech and movement normal Mood: anxious mood Affect: anxious affect Attitude: cooperative Thought Process: normal Thought Content: normal DS: Data Vitals/I&O Vitals and I&O: Vital Signs Temperature 36.5 C 05/13/23 07:29 Temperature Source Tympanic 05/13/23 07:29 Pulse 83 05/13/23 07:29 Pulse Rhythm Regular 05/13/23 08:00 Respiratory Rate 17 05/13/23 07:29 Respiratory Effort Normal, Non-Labored 05/13/23 08:00 Respiratory Depth Normal 05/13/23 08:00 Respiratory Pattern Normal 05/13/23 08:00 Blood Pressure 123/75 05/13/23 07:29 Blood Pressure Position Sitting 05/11/23 08:47 Pulse Oximetry 98 05/13/23 07:29 Oxygen Delivery Method Room Air 05/13/23 07:29 Oxygen Flow Rate 0 05/13/23 07:29 Pain Level 0 05/13/23 07:29 Intake & Output 05/12/23 05/12/23 05/13/23 11:59 23:59 11:59 Intake Total 120 / 120 Output Total 450 / 1500 1050 / 1500 500 / 500 Balance -450 / -1380 -930 / -1380 -500 / -500 Intake: Oral 120 / 120 Output: Urine 450 / 1500 1050 / 1500 500 / 500 Other: Urine Color Yellow Yellow Yellow Urine Appearance Clear Clear Clear Urine Odor Normal None Normal Voiding Methods Urinal Urinal Urinal PFSH All Active Problems (Updated 05/12/23 @ 13:46 by Kezia Padgett NP) Discharge planning issues (Acute) On deep vein thrombosis (DVT) prophylaxis (Acute) Acetabulum fracture, right (Acute) Fracture of right acetabulum (Acute 05/10/23) Social History Smoking/Tobacco Use Status: Current every day Tobacco Type: e-cigarettes Smoking risk assessment performed?: Yes Alcohol Intake: current Alcohol Intake frequency: holidays/special occasions only Alcohol type: beer Drug use: Daily Substance use type: marijuana Housing: apartment Time Spent with Patient Time Spent with Patient: <45 minutes Time was spent: preparing to see the patient(eg.review tests), obtaining and/or reviewing separately otained hiistory, ordering medications,tests, procedures, indepentently interpreting results and counseling the patient
--- NOTE | 2023-05-13 16:38 | PT.INTREAT ---
Date of service: 05/13/23 Time of Service: 09:07 PT Notes Visit Reasons: Right Acetabular Fracture Inpatient Physical Therapy Treatment Note [facility] Date: 05/13/23 PRECAUTIONS: Fall, standard, activity as tolerated. NWB on RLE. SUBJECTIVE: Patient reports feeling more confident in his ability to get around safely. OBJECTIVE: Supine in bed, agreeable to therapy. ? PAIN: Yes, reports pain which worsens with ambulation and improves with rest in the right hip. VITALS: monitored by nursing staff? ? ? BED MOBILITY/TRANSFERS? Rolling L/R: independent Supine-sit: independent ? Sit-supine: independent ? Sit-stand: SBA, requires verbal cues for weightbearing status. Places right foot even with left foot despite VC to kick right leg out in front to ensure WB precautions are maintained. ? Stand-sit: SBA, requires verbal cues for weightbearing status. Places right foot even with left foot despite VC to kick right leg out in front to ensure WB precautions are maintained. ? Bed-Chair: SBA ? Chair-bed: SBA Provided skilled cues and instruction on performance and technique throughout. Gait Training ([id number]): Direct one-on-one instruction and skilled instruction in: [x] employing an assistive device [x] modified weight-bearing status [x] movement sequencing [x] turning and movement with proper form [x] Provided verbal cues for equipment management and technique [x] Provided instruction in gait pattern [] Patient education regarding pacing and breathing techniques to maximize activity tolerance? GAIT? Assistive Device: Axillary crutches ? Weight bearing: NWB RLE Assist: SBA, as patient declines gait belt ? Distance:? 200 feet ? Deviation: moderate verbal cues for weight-bearing status as well as gait pattern, encouraging TDWB pattern with step through to normalize gait. Coaching / education provided with regards to stair technique, although patient declines to practice on stairs today, first due to pain and subsequently due to imminent discharge. ? ASSESSMENT:? Patient verbalizes good understanding of weight-bearing precautions, although he would be safer if he were consistently in the habit of transitioning stand-sit or sit-stand with right leg extended in front of him. Continues to have some confusion with regard to gait sequence on stairs. PLAN: Patient would benefit from HHPT for continued skills training especially regarding gait sequence on stairs. TREATMENT CODE/TIME: 8 minutes beginning at 9:07 and 4 minutes beginning at 11:28 for a total of 12 minutes.
== END 2023-05-13 12:04 | disposition home or self-care (01) ==
LOC: ER 19:52 → MS 19:54
PROVIDERS: Emergency Medicine; Admitting Provider Internal Medicine; Emergency Provider Student in an Organized Health Care Education/Training Program; Visit Provider Internal Medicine
DX: S32.434A Nondisplaced fracture of anterior column [iliopubic] of right acetabulum, initial encounter for closed fracture (principal); G35 Multiple sclerosis; W00.0XXA Fall on same level due to ice and snow, initial encounter; F17.290 Nicotine dependence, other tobacco product, uncomplicated; Z79.899 Other long term (current) drug therapy; F12.90 Cannabis use, unspecified, uncomplicated
CPT/HCPCS: 00123; 36415; 73552; 80053; 96372; 96374; 96375; 96376; 97116; 97161; 99285; J1650; 72131; 72170; 72192; 73060; 73700; 85025; 99223; 99232; 99238; G0378; J0131; J1885; J3010

== ENCOUNTER 2024-04-25 22:02 | Emergency (ER) | payer BC, SELFPAY ==
--- NOTE | 2024-04-25 22:05 | W.ED.GENAD ---
Discharge Plan Discharge Details Chief Complaint: PsychEval Clinical Impression: Bizarre behavior Primary Care Provider: Unknown,Unknown ED Provider: Carson Cabrera Meds and New Rx's Prescriptions: No Action gabapentin 300 mg capsule 300 mg PO TID acetaminophen 325 mg Tablet 650 mg PO Q6H Qty: 0 0RF pantoprazole 40 mg Tablet,Delayed Release (Dr/Ec) 40 mg PO DAILY@0730 Qty: 30 0RF ibuprofen 600 mg Tablet 600 mg PO QID Qty: 0 0RF oxycodone 5 mg Tablet 5 mg PO Q6H PRN PRNQty: 20 0RF aspirin 81 mg capsule 81 mg PO BID Qty: 1 0RF HPI General Mode of arrival: ambulatory. Date/Time Provider Initiated Documentation: 04/25/24 22:04. Limitations to Documentation: altered mental status. Information obtained by: patient, police and RN notes reviewed. HPI Narrative: Patient presents to ED accompanied by VSP with altered mental status. Patient is calm and cooperative, seems mildly paranoid but also completely disoriented. VSP reports they received two calls from [facility] where patient was staying. He had been in the lobby a couple times tonight making odd statements, wandering around, making staff and other guest very uncomfortable. VSP came and found patient in the hotel room. Room reported to be covered with feces. Patient was covered in feces and half dressed. Police report alcohol containers in the room but patient had blown 0 on the breathalyzer. He was completely disoriented and confused. He voluntary came to ED. He has no physical complaints but can really offer no history. He has no record of psych problems, only MS listed in our records. Related Data Home Medications ?Medication ?Instructions ?Recorded ?Confirmed gabapentin 300 mg capsule 300 mg PO TID 05/11/23 04/25/24 acetaminophen 325 mg tablet 650 mg (2 x 325 mg) PO Q6H #0 tabs 05/13/23 04/25/24 aspirin 81 mg capsule 81 mg PO BID #1 cap 05/13/23 04/25/24 ibuprofen 600 mg tablet 600 mg PO QID #0 tabs 05/13/23 04/25/24 oxycodone 5 mg tablet 5 mg PO Q6H PRN PRN #20 tabs 05/13/23 04/25/24 pantoprazole 40 mg tablet,delayed 40 mg PO DAILY@0730 #30 tabs 05/13/23 04/25/24 release Previous Rx's ?Medication ?Instructions ?Recorded acetaminophen 325 mg tablet 650 mg (2 x 325 mg) PO Q6H #0 tabs 05/13/23 aspirin 81 mg capsule 81 mg PO BID #1 cap 05/13/23 ibuprofen 600 mg tablet 600 mg PO QID #0 tabs 05/13/23 oxycodone 5 mg tablet 5 mg PO Q6H PRN PRN #20 tabs 05/13/23 pantoprazole 40 mg tablet,delayed 40 mg PO DAILY@0730 #30 tabs 05/13/23 release Allergies Allergy/AdvReac Type Severity Reaction Status Date / Time No Known Allergies Allergy Unverified 04/25/24 22:13 General DEMI: 3 Review of Systems Unobtainable due to mental status Exam Narrative Exam Narrative: Const: WDWN male in NAD. VS per triage. HEENT: NC/AT. Normal facial exam. Neck: Supple. Trachea midline. Lungs: Normal respiratory effort. Lungs are clear. Cor: RRR without murmur. Good radial pulses. GI: Soft/ND/NT. Neuro: A+O x 1. Normal speech but disoriented and confused. Gait is ataxic. Cranial nerves II - XII grossly intact. No gross motor or sensory deficit. Ext: No C/C/E. Medical Decision Making Patient brought to ED by VSP after they were called to local hotel due to erratic behavior and confusion. Patient found to be in hotel room which was covered with feces as was patient. Patient without psych history as far as we can tell. He is disoriented, confused, mildly paranoid and has an ataxic gait but is otherwise non-focal. Needs work up for altered mental status and needs CT head, metabolic/infectious work up, drug/alcohol screening. Lacks capacity at this point so will hold and not allow elopement/AMA. Currently very calm and cooperative. 23:40 - Patient's CT head with chronic changes/volume loss per prelim radiology. Labs are unremarkable and nasal swab is negative. EKG is normal per my read. Urine and UDS pending. Patient remains unchanged, cooperative. 02:45 - Patient's UDS positive for marijuana only. UA negative. Patient still calm and cooperative but acting somewhat erratically, remains confused to some degree. Medically cleared to be seen by mental health for their input. 06:45 - Patient signed out to oncoming ED physician pending [facility] evaluation. Medical Records Medical records reviewed: Yes I reviewed the patient's medical records. Medical records narrative: Admission from last year when he fell and had acetabular fracture. Lab Data Lab results reviewed: Yes I reviewed the patient's lab results. Lab results narrative: see MDM ECG Data Attestation: I personally reviewed and interpreted this ECG (s) as follows: Interpretation: see MDM/EKG Quality:SDOH Health Related Social Needs: No Data to Display [facility] All Active Problems (Updated 04/26/24 @ 06:45 by Carson Cabrera MD) Bizarre behavior (Acute) Acetabulum fracture, right (Acute) Medical History Multiple sclerosis Social History Smoking/Tobacco Use Status: Current every day Tobacco Type: e-cigarettes Smoking risk assessment performed?: Yes Alcohol Intake: current Alcohol Intake frequency: holidays/special occasions only Alcohol type: beer Drug use: Daily Substance use type: marijuana Housing: homeless
[2024-04-25 22:06] VITALS: BP 121/87; PULSE 85; RESP 18; O2SAT 97
--- NOTE | 2024-04-25 22:15 | DI.CT_ITS ---
Exam(s) CT HEAD WO EXAM: CT HEAD WO CLINICAL HISTORY: altered mental status. TECHNIQUE: Imaging Protocol: Axial computed tomography images with coronal and sagittal reformatted images were created and reviewed COMPARISON: No exams were available for comparison FINDINGS: The examination is limited due to patient motion artifact. Ventricles and Extra axial spaces: Normal in size and morphology for the patient's age. Hemorrhage: None. Cerebral parenchyma: No evidence of an acute territorial infarct. No acute mass effect is present. Midline shift: None. Brainstem/Cerebellum: Normal. Calvarium: Normal. Visualized Paranasal sinuses/Mastoids: Clear. Soft Tissues: Unremarkable. IMPRESSION: No acute intracranial process. RADIATION DOSE DELIVERED: 941.32mGy.cm Total DLP DATA REPOSITORY: All CT scans at this facility are submitted to the National Radiology Data Registry (NRDR) Dose Index Registry (DIR) with the [employer] (ACR). RADIATION OPTIMIZATION: All CT scans at this facility use at least one of these dose optimization te chniques: automated exposure control; mA and/or kV adjustment per patient size (includes targeted exa ms where dose is matched to clinical indication); or iterative reconstruction.
--- NOTE | 2024-04-25 22:15 | RT.EKG_ITS ---
APPROVED REPORT Exam: Resting ECG Reason for Exam: altered mental status Patient Location: E HR:70 bpm ECG Measurements Heart Rate 70 AXIS [place] 193 P 59 QRSd 95 QRS 45 QT 405 T 56 QTc 437 Conclusion Sinus rhythm...normal P axis, V-rate 60- 99 Normal Electrocardiogram
[2024-04-25 22:39] LABS: Abs Immature Grans 0.04 10^3/uL (0.0-0.06); Absolute Basophil Count 0.06 10^3/uL (0.0-0.2); Absolute Lymphocyte Count 2.01 10^3/uL (1.2-3.4); Absolute Monocyte Count 0.81 10^3/uL (0.1-0.8); Absolute Neutrophil Count 6.85 10^3/uL (1.2-6.7); Basophils % 0.6 %; HCT 33.8 % (40.0-50.0); HGB 11.5 g/dL (13.5-17.5); Immature Grans % 0.4 %; Lymphocytes % 20.4 %; MCH 31.3 pg (27.0-33.0); MCV 92 fL (80-95); MPV 9.2 fL (8.0-11.0); Monocytes % 8.2 %; Neutrophils % 69.4 %; Platelet Count 328 10^3/uL (130-400); RBC 3.68 10^6/uL (4.36-5.78); RDW 14.6 % (11.8-14.1); RDW-SD 48.5 fL; WBC 9.87 10^3/uL (4.4-10.8)
[2024-04-25 23:01] LABS: Ammonia 11 umol/L (11-32)
[2024-04-25 23:06] LABS: ALT 20 U/L (16-63); AST 13 U/L (15-37); Albumin 4.2 g/dL (3.4-5.0); Alkaline Phosphatase 117 U/L (46-116); BUN 24 mg/dL (7-18); Bilirubin, Total 1.01 mg/dL (0.2-1.0); CREATININE 1.1 mg/dL (0.70-1.30); Calcium 8.8 mg/dL (8.5-10.1); Chloride 108 mmol/L (98-107); Estimated GFR 80.77 (mL/min/1.73m2); Glucose 93 mg/dL (74-106); Potassium 3.4 mmol/L (3.5-5.1); Sodium 143 mmol/L (136-145); TSH (W/Ref FT4) 1.23 uIU/mL (0.36-3.74); Total Protein 6.9 g/dL (6.4-8.2); Troponin I 6 ng/L (<or=76)
[2024-04-25 23:09] VITALS: RESP 18
--- NOTE | 2024-04-25 23:14 | DI.VRAD_ITS ---
PROCEDURE INFORMATION: Exam: CT Head Without Contrast Exam date and time: 04/25/2024 10:58 PM Age: 53 years old Clinical indication: Altered mental status/memory loss TECHNIQUE: Imaging protocol: Computed tomography of the head without contrast. Radiation optimization: All CT scans at this facility use at least one of these dose optimization techniques: automated exposure control; mA and/or kV adjustment per patient size (includes targeted exams where dose is matched to clinical indication); or iterative reconstruction. COMPARISON: No relevant prior studies available. FINDINGS: Limitations: Images are degraded by motion artifact. Brain: There are bilateral periventricular white matter and centrum semiovale hypodensities, consistent with chronic ischemic small vessel disease. Age related diffuse parenchymal volume loss. No recent infarct, intracranial bleed or mass effect. Cerebral ventricles: Ex vacuo dilatation of the ventricles. Paranasal sinuses: Visualized sinuses are unremarkable. No fluid levels. Mastoid air cells: Visualized mastoid air cells are well aerated. Bones: Unremarkable. No acute fracture. Soft tissues: Unremarkable. IMPRESSION: No large territorial infarct or intracranial bleed. Dictated and Authenticated by: Ezio Worthington MD. Orderin Rick Byrd MD
[2024-04-25 23:18] LABS: ETHANOL BLOOD < 3.0 mg/dL (<10)
[2024-04-25 23:20] LABS: COVID-19 PCR Negative (Negative); Influenza A PCR Negative (Negative); Influenza B PCR Negative (Negative); RSV PCR Negative (Negative)
[2024-04-25 23:26] LABS: Source Nasopharynx
[2024-04-26 02:01] LABS: Bilirubin Negative (Negative); Blood Negative (Negative); Clarity Clear (Clear); Glucose Negative (Negative); Ketones Trace mg/dL (Negative); Leukocyte Esterase Negative (Negative); Nitrite Negative (Negative); pH 6.5 (5-8)
[2024-04-26 02:13] LABS: *AMPHETAMINES SCREEN URINE Negative (Negative); *BARBITURATES SCREEN URINE Negative (Negative); *BENZODIAZEPINES SCREEN URINE Negative (Negative); Cannabinoids THC Positive (Negative); Cocaine Screen,Urine Negative (Negative); METHADONE URINE SCREEN Negative (Negative); OPIATES URINE SCREEN Negative (Negative)
[2024-04-26 02:14] LABS: Tricyclic Antidepressants Negative (Negative)
--- NOTE | 2024-04-26 07:10 | ED.PROG_ITS ---
Date of service: 04/26/24 Time of Service: 07:10 Medical Decision Making In brief, this is a 53-year-old male patient with a past medical history significant for MS, who was brought in by PD for bizarre behavior. Prior to my taking over his care, the patient had an altered mental status workup including a normal blood glucose and a reassuring Noncon head CT, as well as laboratory studies that did not reveal any actionable findings.. This disposition is pending completion of an evaluation by [facility]. While under my care, the patient did have some increased anxiety regarding being stuck in the hospital, for which I provided him with 0.5 mg p.o. Ativan. He seems to be more lucid than the evaluation last night revealed, denies suicidal and homicidal ideation, and is desiring to return to his home. We were able to get him a ride back to the hotel where his keys are, and he will meet with [facility] to reclaim any other belongings that they kept after his transport. He has a plan to go to [place] where he has a friend with whom he can stay. At this time, the patient has had a full medical evaluation and is safe for discharge to home. They are hemodynamically stable, ambulatory, and tolerating PO. They are understanding of the follow-up plan and return precautions. They left our facility without incident. Jaqueline Hess MD Medical Records Medical records reviewed: Yes I reviewed the patient's medical records. Quality:SDTN Health Related Social Needs: No Data to Display Discharge Plan Disposition Patient Disposition: Home Condition: Stable Discharge Details Clinical Impression: Bizarre behavior Primary Care Provider: Unknown,Unknown ED Provider: Jaqueline Hess Home Meds and New Rx's Prescriptions: No Action gabapentin 300 mg capsule 300 mg PO TID acetaminophen 325 mg Tablet 650 mg PO Q6H Qty: 0 0RF pantoprazole 40 mg Tablet,Delayed Release (Dr/Ec) 40 mg PO DAILY@0730 Qty: 30 0RF ibuprofen 600 mg Tablet 600 mg PO QID Qty: 0 0RF oxycodone 5 mg Tablet 5 mg PO Q6H PRN PRNQty: 20 0RF aspirin 81 mg capsule 81 mg PO BID Qty: 1 0RF Discharge Instructions Instructions: Stress Additional Instructions: You were seen in the emergency department today for evaluation of change in behavior and mental status. In our department a full physical examination performed, had a CT scan of your head that was normal, and had reassuring laboratory studies. You met with a member of our psychiatric social worker team, and at this time have declined any additional services. Is safe for you to go home and continue to follow-up with your outpatient providers. Thank you for allowing us to be part of your care.
[2024-04-26] MEDS: LORazepam 0.5 MG TAB PO (09:05)
== END 2024-04-26 11:20 | disposition home or self-care (01) ==
PROVIDERS: Emergency Medicine; Emergency Provider Emergency Medicine
DX: R41.82 Altered mental status, unspecified; F17.290 Nicotine dependence, other tobacco product, uncomplicated
CPT/HCPCS: 00123; 36416; 80053; 80307; 82962; 87637; 93005; 99285; 70450; 80320; 81003; 82140; 83735; 84443; 84484; 85025; 93010

== ENCOUNTER 2024-07-02 17:08 | Observation (INO) | payer BC, SELFPAY ==
[2024-07-02] VITALS (17 sets, daily range): BP systolic 101–141; BP diastolic 69–95; PULSE 78–104; RESP 12–16; TEMP 36.5–36.9; O2SAT 95–100
--- NOTE | 2024-07-02 17:23 | ED.GENADUL_ITS ---
Discharge Plan Disposition Patient Disposition: Admit to [facility] Condition: Stable Discharge Details Clinical Impression: Multiple sclerosis exacerbation Primary Care Provider: Ghulam Garcia ED Provider: Ruben Hudson Home Meds and New Rx's Prescriptions: No Action quetiapine 50 mg tablet 50 mg PO BID Patient Comments: TAKE ONE TABLET BY MOUTH TWICE A DAY escitalopram oxalate 10 mg tablet 10 mg PO DAILY Patient Comments: TAKE ONE TABLET BY MOUTH EVERY DAY sildenafil (pulm.hypertension) 20 mg tablet 20 mg PO DAILY PRN Patient Comments: TAKE 2-5 TABLETS BY MOUTH ONCE A DAY NEEDED folic acid 1 mg tablet 1 mg PO DAILY Patient Comments: TAKE ONE TABLET BY MOUTH EVERY DAY gabapentin 300 mg capsule 300 mg PO TID acetaminophen 325 mg Tablet 650 mg PO Q6H Qty: 0 0RF pantoprazole 40 mg Tablet,Delayed Release (Dr/Ec) 40 mg PO DAILY@0730 Qty: 30 0RF ibuprofen 600 mg Tablet 600 mg PO QID Qty: 0 0RF oxycodone 5 mg Tablet 5 mg PO Q6H PRN PRNQty: 20 0RF aspirin 81 mg capsule 81 mg PO BID Qty: 1 0RF HPI General Date/Time Provider Initiated Documentation: 07/02/24 17:23 . HPI Narrative: 53 year-old male presents to ED today by POV/ambulating with a chief complaint of foot and ankle sensory changes, and pain, with more difficulty walking beyond his baseline with onset over the past couple days. Quality described as generalized foot and ankle numbness/tingling/pins/needles and pain, feels similar to prior MS flares, no radiation to fever, chest pain, palpitations, cough/URI symptoms, nausea/vomiting, abdominal pain, neck stiffness, urinary retention, bowel incontinence, saddle anesthesia. Severity is described as moderate. Palliating factors include nothing specific attempted. Provoking factors include nothing specific. Events leading up to the incident/Associated Symptoms: Patient does smell of urine and recently had a UTI treated with antibiotics. Patient not anticoagulated. Related Data Home Medications ?Medication ?Instructions ?Recorded ?Confirmed gabapentin 300 mg capsule 300 mg PO TID 05/11/23 07/02/24 acetaminophen 325 mg tablet 650 mg (2 x 325 mg) PO Q6H #0 tabs 05/13/23 07/02/24 aspirin 81 mg capsule 81 mg PO BID #1 cap 05/13/23 07/02/24 ibuprofen 600 mg tablet 600 mg PO QID #0 tabs 05/13/23 07/02/24 oxycodone 5 mg tablet 5 mg PO Q6H PRN PRN #20 tabs 05/13/23 07/02/24 pantoprazole 40 mg tablet,delayed 40 mg PO DAILY@0730 #30 tabs 05/13/23 07/02/24 release escitalopram oxalate 10 mg tablet 10 mg PO DAILY 07/02/24 07/02/24 folic acid 1 mg tablet 1 mg PO DAILY 07/02/24 07/02/24 quetiapine 50 mg tablet 50 mg PO BID 07/02/24 07/02/24 sildenafil (pulm.hypertension) 20 20 mg PO DAILY PRN 07/02/24 07/02/24 mg tablet Previous Rx's ?Medication ?Instructions ?Recorded acetaminophen 325 mg tablet 650 mg (2 x 325 mg) PO Q6H #0 tabs 05/13/23 aspirin 81 mg capsule 81 mg PO BID #1 cap 05/13/23 ibuprofen 600 mg tablet 600 mg PO QID #0 tabs 05/13/23 oxycodone 5 mg tablet 5 mg PO Q6H PRN PRN #20 tabs 05/13/23 pantoprazole 40 mg tablet,delayed 40 mg PO DAILY@0730 #30 tabs 05/13/23 release Allergies Allergy/AdvReac Type Severity Reaction Status Date / Time No Known Allergies Allergy Unverified 07/02/24 17:18 General Stated Complaint: GenMedical DEMI: 3 Review of Systems All systems reviewed & are unremarkable except as noted in HPI and below Exam Narrative Exam Narrative: GENERAL APPEARANCE: Mal-nourished, non-toxic, awake and alert, atraumatic, no acute distress, smells of urine. SKIN: Warm, pink, dry, intact, without rashes/lesions/ulcerations. HEAD: Normocephalic, atraumatic, normal hair distribution for gender/age. EYES: Normal conjunctiva, no exudates on lids/lashes. ENT: Nares patent, no circumoral cyanosis, no facial swelling NECK: Supple, trachea midline, painless cervical ROM. LUNGS/CHEST: Lungs CTA bilaterally- no rhonchi/rales/wheezes diffusely, non- labored respirations, normal A/P diameter, symmetrical expansion, no chest wall deformity HEART (CV/PV): Regular rate and rhythm without murmur, no peripheral edema, no JVD. ABDOMEN: Soft, non-distended, no guarding, no CVA tenderness to percussion bilaterally, no tenderness. MSK: Normal ROM, no swelling/deformity to bilateral UEs or LEs, moving all extremities without weakness, no cyanosis, spine midline without tenderness, normal curvature. NEURO: Mental Status AAOx4 - alert to person, place, time, events No facial droop, no forehead involvement. Motor: No focal weakness - strength 4+/5 in bilateral UEs and LEs, proximal and distal, symmetric. Sensory: sensation intact to light touch globally, endorses sensory differences in bilateral feet/ankles. NO saddle anesthesia, sensation intact. Gait difficulty ambulating at baseline, assisted into room PSYCH: dysthymic, cooperative, flat affect, appropriate speech Course Vital Signs Vital signs: Vital Signs Temperature 36.9 C 07/02/24 17:15 Pulse 88 07/02/24 17:15 Respiratory Rate 12 07/02/24 17:15 Blood Pressure 138/90 07/02/24 17:15 Pulse Oximetry 95 07/02/24 17:15 Temperature 36.9 C 07/02/24 17:15 Temperature Source Oral 07/02/24 17:15 Pulse 88 07/02/24 17:15 Respiratory Rate 12 07/02/24 17:15 Blood Pressure 138/90 07/02/24 17:15 Pulse Oximetry 95 07/02/24 17:15 Oxygen Delivery Method Room Air 07/02/24 17:15 Oxygen Flow Rate 0 07/02/24 17:15 Pain Level 7 07/02/24 17:15 Medical Decision Making This dictation utilizes [id number] dictation software and may contain unedited grammatical errors. 53 year-old male presents to ED today by POV/ambulating with a chief complaint of foot and ankle sensory changes, and pain, with more difficulty walking beyond his baseline with onset over the past couple days. Quality described as generalized foot and ankle numbness/tingling/pins/needles and pain, feels similar to prior MS flares, no radiation to fever, chest pain, palpitations, cough/URI symptoms, nausea/vomiting, abdominal pain, neck stiffness, urinary retention, bowel incontinence, saddle anesthesia. Severity is described as moderate. Palliating factors include nothing specific attempted. Provoking factors include nothing specific. Events leading up to the incident/Associated Symptoms: Patient does smell of urine and recently had a UTI treated with antibiotics. Patients' medical history: Multiple sclerosis, GERD, pulmonary hypertension, bizarre behavior, alcohol abuse. Family and social history: Denies EtOH use, denies IV drug use. Pertinent exam findings / vital signs include strength 4+/5 diffusely to lower extremities, all ranges of motion intact, endorses subjective sensory deficits around ankle and feet bilaterally, brisk capillary refill, no saddle anesthesia, no nuchal rigidity, benign cardiopulmonary exam, benign abdomen. Differential / pathologies of concern include MS Flare, tick-borne illness, neuropathy, infection. Diagnostic studies of: - CBC, CMP, UA, respiratory PCR swab, tick panel, blood cultures. - CBC shows no leukocytosis, mild anemia - CMP shows a mild hypokalemia, treating with p.o. potassium - Bilirubin 1.6, has been elevated in the past likely mildly dehydrated - Urine shows no evidence of infection - PCR swab negative - Tick panel pending - Blood cultures pending Interventions of: -1g IV methylprenisolone. ED Course/Assessment/Plan: Patient with longstanding MS is having flare with some aches and pains in his feet and ankles only, he is strength is 5/5, there is no dysmetria with heel- hi in either extremity, he has no evidence of urinary retention, bowel incontinence or saddle anesthesia on my exam, he is otherwise neuro baseline, he is afebrile and denies any recent illness and I do not suspect fever exacerbating his MS. We do not have MRI available. I discussed with the patient admission for MRI & high-dose gluccocorticoid therapy, he initially wanted to be discharged on 1250mg prednisone daily and follow-up outpatient, but then later changed his mind and wished to be admitted to have MRI & IV steroids. He had initially told me he is followed at [facility] Neurology- so tele-consult was ordered at request of Hospitalist. Patient is actually followed by [facility] Neurology. [facility] Neuro paged at 2019. Called back and spoke with Dr. Portillo @ 2039 - recommends MRI Brain & Entire spine WITH contrast tomorrow, and if any new lesions, to continue high-dose steroid treatment- she will pass along note to the patients' provider that he is admitted here. Findings not consistent with cauda equina, meningitis, acute infection, intoxication. Disposition of Multiple Sclerosis Exacerbation. Patient verbalized understanding of the plan and return to ED criteria and engaged in shared decision making. Medical Records Medical records reviewed: Yes I reviewed the patient's medical records. Lab Data Lab results reviewed: Yes I reviewed the patient's lab results. Labs: 07/02/24 18:30 Blood Blood Culture - Pending 07/02/24 18:15 Blood Blood Culture - Pending Laboratory Tests Range/Units 07/02/24 07/02/24 07/02/24 17:56 18:15 19:20 WBC (4.4-10.8) 10^3/uL 6.03 RBC (4.36-5.78) 10^6/uL 4.06 L Hgb (13.5-17.5) g/dL 12.6 L Hct (40.0-50.0) % 38.0 L MCV (80-95) fL 94 MCH (27.0-33.0) pg 31.0 MCHC (32.0-36.0) % 33.2 RDW (11.8-14.1) % 13.6 Plt Count (130-400) 10^3/uL 426 H MPV (8.0-11.0) fL 9.2 Immature Gran % % 0.3 Neutrophils % % 62.0 Lymphocytes % % 29.4 Monocytes % % 6.6 Eosinophils % % 0.7 Basophils % % 1.0 Nucleated RBC % (0.0-0.3) % 0.0 Absolute Neutrophils (1.2-6.7) 10^3/uL 3.74 Absolute Lymphocytes (1.2-3.4) 10^3/uL 1.77 Absolute Monocytes (0.1-0.8) 10^3/uL 0.40 Absolute Eosinophils (0.0-0.7) 10^3/uL 0.04 Absolute Basophils (0.0-0.2) 10^3/uL 0.06 Sodium (136-145) mmol/L 144 Potassium (3.5-5.1) mmol/L 3.2 L Chloride (98-107) mmol/L 108 H Carbon Dioxide (21.0-32.0) mmol/L 22.7 Anion Gap (3-11) mmol/L 13.3 H BUN (7-18) mg/dL 24 H Creatinine (0.70-1.30) mg/dL 0.9 Est GFR (CKD-EPI 2020) (mL/min/1.73m2) 102.76 Glucose (74-106) mg/dL 81 Calcium (8.5-10.1) mg/dL 9.6 Total Bilirubin (0.2-1.0) mg/dL 1.6 H AST (15-37) U/L 12 L ALT (16-63) U/L 17 Alkaline Phosphatase (46-116) U/L 132 H Total Protein (6.4-8.2) g/dL 7.6 Albumin (3.4-5.0) g/dL 4.7 Urine Color (Yellow) Yellow Urine Clarity (Clear) Clear Urine pH (5-8) 6.5 Ur Specific [place] (1.005-1.025) 1.025 Urine Protein (Neg-Trace) mg/dL 30 H Urine Ketones (Negative) mg/dL 80 H Urine Blood (Negative) Negative Urine Nitrite (Negative) Negative Urine Bilirubin (Negative) Small H Urine Urobilinogen (Up to 0.2) mg/dL 2.0 H Ur Leukocyte Esterase (Negative) Negative Urine RBC (0-2) HPF 3-5 H Urine WBC (0-5) HPF 0-2 Ur Epithelial Cells (Negative) HPF Rare Urine Crystals (Negative) HPF Rare Amorphous Urine Bacteria (Negative) HPF Negative Urine Mucus (Negative) Moderate Ur Culture Indicated? No Urine Glucose (Negative) mg/dL Negative COVID-19 Source Nasopharynx SARS-CoV-2 (PCR) (Negative) Negative Influenza Type A (PCR) (Negative) Negative Influenza Type B (PCR) (Negative) Negative RSV (PCR) (Negative) Negative Quality:SDOH Health Related Social Needs: Health related social needs housing instability, house d, with risk of homelessness (Z59.811), food insecurity (Z59.41), material hardship(utilities) (Z59.12), transportation insecurity (Z59.82), problems related to housing/economic circumstances (Z59.89), feeling lonely/isolated (Z60.8) PFSH All Active Problems (Updated 07/02/24 @ 17:35 by HONORIO Evans) Multiple sclerosis exacerbation (Acute) Acetabulum fracture, right (Acute) Medical History Multiple sclerosis Social History Smoking/Tobacco Use Status: Current every day Tobacco Type: e-cigarettes Smoking risk assessment performed?: Yes Alcohol Intake: current Alcohol Intake frequency: holidays/special occasions only Alcohol type: beer Drug use: Daily Substance use type: marijuana Housing: homeless Do you feel safe at home: Yes Do you feel safe in your relationship?: Yes
[2024-07-02 18:36] LABS: COVID-19 PCR Negative (Negative); Influenza A PCR Negative (Negative); Influenza B PCR Negative (Negative); RSV PCR Negative (Negative)
[2024-07-02 18:37] LABS: Source Nasopharynx
[2024-07-02 18:49] LABS: Abs Immature Grans 0.02 10^3/uL (0.0-0.06); Absolute Basophil Count 0.06 10^3/uL (0.0-0.2); Absolute Eosinophil Count 0.04 10^3/uL (0.0-0.7); Absolute Lymphocyte Count 1.77 10^3/uL (1.2-3.4); Absolute Neutrophil Count 3.74 10^3/uL (1.2-6.7); Eosinophils % 0.7 %; HGB 12.6 g/dL (13.5-17.5); Immature Grans % 0.3 %; Lymphocytes % 29.4 %; MCHC 33.2 % (32.0-36.0); MCV 94 fL (80-95); MPV 9.2 fL (8.0-11.0); Monocytes % 6.6 %; Platelet Count 426 10^3/uL (130-400); RBC 4.06 10^6/uL (4.36-5.78); RDW 13.6 % (11.8-14.1); RDW-SD 45.7 fL; WBC 6.03 10^3/uL (4.4-10.8)
[2024-07-02 19:06] LABS: ALT 17 U/L (16-63); AST 12 U/L (15-37); Albumin 4.7 g/dL (3.4-5.0); Alkaline Phosphatase 132 U/L (46-116); Anion Gap 13.3 mmol/L (3-11); BUN 24 mg/dL (7-18); Bilirubin, Total 1.6 mg/dL (0.2-1.0); CO2 22.7 mmol/L (21.0-32.0); CREATININE 0.9 mg/dL (0.70-1.30); Calcium 9.6 mg/dL (8.5-10.1); Chloride 108 mmol/L (98-107); Estimated GFR 102.76 (mL/min/1.73m2); Glucose 81 mg/dL (74-106); Potassium 3.2 mmol/L (3.5-5.1); Sodium 144 mmol/L (136-145); Total Protein 7.6 g/dL (6.4-8.2)
[2024-07-02] MEDS: Potassium Chloride 20 MEQ TABCR 40 MEQ PO (19:24)
[2024-07-02 19:33] LABS: Bilirubin Small (Negative); Blood Negative (Negative); Clarity Clear (Clear); Glucose Negative (Negative); Ketones 80 mg/dL (Negative); Leukocyte Esterase Negative (Negative); Nitrite Negative (Negative); Specific Gravity 1.025 (1.005-1.025); pH 6.5 (5-8)
[2024-07-02 19:40] LABS: Bacteria Negative HPF (Negative); C & S Indicated? No; Crystals Rare Amorphous HPF (Negative); Epithelial Cells Rare HPF (Negative); Mucus Moderate (Negative); WBC 0-2 HPF (0-5)
--- NOTE | 2024-07-02 21:46 | W.PM.HP.N ---
Date of service: 07/02/24 Time of Service: 21:46 Assessment and Plan Assessment and plan (1) Multiple sclerosis exacerbation: Status: Acute Assessment and plan: Patient with longstanding multiple sclerosis here for a possible flare of symptoms. The ED provider spoke with Dr. Paul at [facility] neurology. It is recommended he be admitted and be set up for an MRI of his brain and spinal column with contrast. If there is no new lesion we can stop the steroids. If there is a new lesion continue with a 5-day course of 1 g methylprednisolone daily. Will try to contact his regular neurologist, Chelo Barrientos MD, in the AM. Is not clear this represents a significant MS flare especially with him admitting to improved symptomatology during the ED visit. (2) Hypokalemia: Status: Acute Assessment and plan: Potassium was low at 3.2 in the ED. He received 40 mEq p.o. He got some IV fluids. Will recheck a BMP in the a.m. History of Present Illness History of Present Illness Chief Complaint: MS flare, difficulty walking Narrative: 53-year-old man with multiple sclerosis times the last 10 years. He is currently getting physical therapy on a weekly basis. Last saw physical therapy on 06/26/2024. He has been making some progress with physical therapy after a month-long hospitalization in [facility] for an MS flare and a fungal UTI. This evening he was noted to have some difficulty in walking. Evaluation in the ED showed his strength was normal, [id number] was normal, but he did have to have assistance getting into the ED. He had labs that were largely normal. A tick panel was sent off. He was given a gram of methylprednisolone. Neurology at [facility] was contacted and recommended checking an MRI of his brain and spinal column. If no lesions found can stop the methylprednisolone, otherwise continue a 5-day course. His neurologist, Chelo Barrientos MD, will be available tomorrow to consult. Review of Systems Narrative: He states he is generally healthy. He lives in an apartment with his girlfriend. He was living in a hotel back in March 2024. He previously worked at [employer] in [employer]. 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 He has not worked since 04/2024. He has never had cardiac problems. No ongoing respiratory issues. No GI or problems other than the ED. His difficulty walking seem to have come on gradually in the last day or 2. He is having [id number] in his feet. He feels like this is similar to a previous MS flare that he had. PFSH All Active Problems (Updated 07/02/24 @ 22:04 by Graeme Denis MD) Hypokalemia (Acute) Multiple sclerosis exacerbation (Acute) Medical History (Updated 07/02/24 @ 22:04 by Graeme Denis MD) Anxiety and depression Alcohol abuse quit in 04/2024 Erectile dysfunction ADHD Left wrist fracture as a child Fracture of right tibia and fibula approx 2014, s/p ORIF Acetabulum fracture, right Multiple sclerosis Social History Smoking/Tobacco Use Status: Current every day Tobacco Type: e-cigarettes Smoking risk assessment performed?: Yes Alcohol Intake: current Alcohol Intake frequency: holidays/special occasions only Alcohol type: beer Drug use: Daily Substance use type: marijuana Housing: homeless Do you feel safe at home: Yes Do you feel safe in your relationship?: Yes Meds Allergies and Home Medications Allergies Allergy/AdvReac Type Severity Reaction Status Date / Time No Known Allergies Allergy Unverified 07/02/24 17:18 Home Medications ?Medication ?Instructions ?Recorded ?Confirmed ?Type gabapentin 300 mg capsule 300 mg PO TID 05/11/23 07/02/24 History acetaminophen 325 mg tablet 650 mg (2 x 325 mg) PO Q6H #0 tabs 05/13/23 07/02/24 Rx aspirin 81 mg capsule 81 mg PO BID #1 cap 05/13/23 07/02/24 Rx ibuprofen 600 mg tablet 600 mg PO QID #0 tabs 05/13/23 07/02/24 Rx oxycodone 5 mg tablet 5 mg PO Q6H PRN PRN #20 tabs 05/13/23 07/02/24 Rx pantoprazole 40 mg tablet,delayed 40 mg PO DAILY@0730 #30 tabs 05/13/23 07/02/24 Rx release escitalopram oxalate 10 mg tablet 10 mg PO DAILY 07/02/24 07/02/24 History folic acid 1 mg tablet 1 mg PO DAILY 07/02/24 07/02/24 History quetiapine 50 mg tablet 50 mg PO BID 07/02/24 07/02/24 History sildenafil (pulm.hypertension) 20 20 mg PO DAILY PRN 07/02/24 07/02/24 History mg tablet Exam Narrative Exam Narrative: On exam he appears reasonably well-kempt and in no apparent distress. He is cooperative and forthcoming though seems somewhat forgetful of past events. His speech is clear he makes good eye contact. His breathing is nonlabored his lungs sound completely clear to auscultation on the right and left. Heart sounds are strong and regular. He had no abdominal tenderness. His lower extremities are notable for excellent perfusion with bounding pulses. He can plantar and dorsiflex both the right and left foot with normal-appearing strength. Overall gross sensation appears to be intact. Of note the patient states he feels a lot better since arriving in the ED. Results Labs 07/02/24 18:15 07/02/24 18:15 Labs: Laboratory Results - last 24 hr 07/02/24 07/02/24 07/02/24 17:56 18:15 19:20 WBC 6.03 RBC 4.06 L Hgb 12.6 L Hct 38.0 L MCV 94 MCH 31.0 MCHC 33.2 RDW 13.6 Plt Count 426 H MPV 9.2 Immature Gran % 0.3 Neutrophils % 62.0 Lymphocytes % 29.4 Monocytes % 6.6 Eosinophils % 0.7 Basophils % 1.0 Nucleated RBC % 0.0 Absolute Neutrophils 3.74 Absolute Lymphocytes 1.77 Absolute Monocytes 0.40 Absolute Eosinophils 0.04 Absolute Basophils 0.06 Sodium 144 Potassium 3.2 L Chloride 108 H Carbon Dioxide 22.7 Anion Gap 13.3 H BUN 24 H Creatinine 0.9 Est GFR (CKD-EPI 2020) 102.76 Glucose 81 Calcium 9.6 Total Bilirubin 1.6 H AST 12 L ALT 17 Alkaline Phosphatase 132 H Total Protein 7.6 Albumin 4.7 Urine Color Yellow Urine Clarity Clear Urine pH 6.5 Ur Specific [place] 1.025 Urine Protein 30 H Urine Ketones 80 H Urine Blood Negative Urine Nitrite Negative Urine Bilirubin Small H Urine Urobilinogen 2.0 H Ur Leukocyte Esterase Negative Urine RBC 3-5 H Urine WBC 0-2 Ur Epithelial Cells Rare Urine Crystals Rare Amorphous Urine Bacteria Negative Urine Mucus Moderate Ur Culture Indicated? No Urine Glucose Negative COVID-19 Source Nasopharynx SARS-CoV-2 (PCR) Negative Influenza Type A (PCR) Negative Influenza Type B (PCR) Negative RSV (PCR) Negative Last Vital Signs Temp 36.9 C 07/02/24 19:39 Pulse 95 H 07/02/24 21:40 Resp 16 07/02/24 21:40 BP 132/69 07/02/24 21:40 Pulse Ox 98 07/02/24 21:40 Time Spent Time spent with Patient: 55-74 minutes Time was spent: preparing to see the patient(eg.review tests), obtaining and/or reviewing separately otained hiistory, ordering medications,tests, procedures, referring, communicating with other health child care development specialist, indepentently interpreting results and counseling the patient
--- NOTE | 2024-07-02 22:48 | W.PC.ACHO ---
Registration Status: Primary Language: Preferred Language: ED Information & Data Chief Complaint GenMedical 07/02/24 19:39 Chief Complaint GenMedical 07/02/24 17:23 Triage Note MS flare up Having problem 07/02/24 17:15 with legs. Medical / Surgical History (Last Updated 07/02/24 @ 21:57 by Graeme Denis MD) Anxiety and depression Alcohol abuse Erectile dysfunction ADHD Left wrist fracture Fracture of right tibia and fibula Acetabulum fracture, right Multiple sclerosis Most Recent Vital Signs Temperature 36.9 C 07/02/24 19:39 Temperature Source Oral 07/02/24 19:39 Pulse 95 H 07/02/24 21:40 Respiratory Rate 16 07/02/24 21:40 Respiratory Effort Normal 07/02/24 19:39 Respiratory Depth Normal 07/02/24 19:39 Respiratory Pattern Normal 07/02/24 19:39 Blood Pressure 132/69 07/02/24 21:40 Blood Pressure Mean 97 07/02/24 20:31 Pulse Oximetry 98 07/02/24 21:40 Oxygen Delivery Method Room Air 07/02/24 17:15 Oxygen Flow Rate 0 07/02/24 17:15 Pain Level 7 07/02/24 19:39 Allergies No Known Allergies Allergy (Unverified 07/02/24 17:18) IV IV Catheter Type [Right Hand] Peripheral IV IV Catheter Gauge [Right Hand] 20 Diagnostics 07/02/24 07/02/24 07/02/24 Range/Units 19:20 18:15 17:56 WBC 6.03 (4.4-10.8) 10^3/uL RBC 4.06 L (4.36-5.78) 10^6/uL Hgb 12.6 L (13.5-17.5) g/dL Hct 38.0 L (40.0-50.0) % MCV 94 (80-95) fL MCH 31.0 (27.0-33.0) pg MCHC 33.2 (32.0-36.0) % RDW 13.6 (11.8-14.1) % Plt Count 426 H (130-400) 10^3/uL MPV 9.2 (8.0-11.0) fL Immature Gran % 0.3 % Neutrophils % 62.0 % Lymphocytes % 29.4 % Monocytes % 6.6 % Eosinophils % 0.7 % Basophils % 1.0 % Nucleated RBC % 0.0 (0.0-0.3) % Absolute Neutrophils 3.74 (1.2-6.7) 10^3/uL Absolute Lymphocytes 1.77 (1.2-3.4) 10^3/uL Absolute Monocytes 0.40 (0.1-0.8) 10^3/uL Absolute Eosinophils 0.04 (0.0-0.7) 10^3/uL Absolute Basophils 0.06 (0.0-0.2) 10^3/uL Sodium 144 (136-145) mmol/L Potassium 3.2 L (3.5-5.1) mmol/L Chloride 108 H (98-107) mmol/L Carbon Dioxide 22.7 (21.0-32.0) mmol/L Anion Gap 13.3 H (3-11) mmol/L BUN 24 H (7-18) mg/dL Creatinine 0.9 (0.70-1.30) mg/dL Est GFR (CKD-EPI 2020) 102.76 (mL/min/1.73m2) Glucose 81 (74-106) mg/dL Calcium 9.6 (8.5-10.1) mg/dL Total Bilirubin 1.6 H (0.2-1.0) mg/dL AST 12 L (15-37) U/L ALT 17 (16-63) U/L Alkaline Phosphatase 132 H (46-116) U/L Total Protein 7.6 (6.4-8.2) g/dL Albumin 4.7 (3.4-5.0) g/dL Urine Color Yellow (Yellow) Urine Clarity Clear (Clear) Urine pH 6.5 (5-8) Ur Specific [place] 1.025 (1.005-1.025) Urine Protein 30 H (Neg-Trace) mg/dL Urine Ketones 80 H (Negative) mg/dL Urine Blood Negative (Negative) Urine Nitrite Negative (Negative) Urine Bilirubin Small H (Negative) Urine Urobilinogen 2.0 H (Up to 0.2) mg/dL Ur Leukocyte Esterase Negative (Negative) Urine RBC 3-5 H (0-2) HPF Urine WBC 0-2 (0-5) HPF Ur Epithelial Cells Rare (Negative) HPF Urine Crystals Rare Amorphous (Negative) HPF Urine Bacteria Negative (Negative) HPF Urine Mucus Moderate (Negative) Ur Culture Indicated? No Urine Glucose Negative (Negative) mg/dL B. divergens/MO-1 PCR Pending Babesia duncani (PCR) Pending Babesia microti DNA PCR Pending Lyme Disease Antibody Pending COVID-19 Source Nasopharynx SARS-CoV-2 (PCR) Negative (Negative) E.chaffeensis DNA (PCR) Pending E.ewingii/canis DNA PCR Pending E.muris eauclairensis (PCR) Pending Influenza Type A (PCR) Negative (Negative) Influenza Type B (PCR) Negative (Negative) RSV (PCR) Negative (Negative) A. phagocytophilum (PCR) Pending Blood B. miyamotoi (PCR) Pending 07/02/24 18:30 Blood Culture - Pending Blood 07/02/24 18:15 Blood Culture - Pending Blood Intake and Output - 24 Hour Total 07/02/24 17:08 thru 07/02/24 19:23 Intake Total 100 Balance 100 Weight 72.575 kg Intake: IV 100 Falls Risk Assessment History of Falls Previous History 07/02/24 19:39 Contributing Factors No Factors 07/02/24 19:39 Ambulatory Aids Independent 07/02/24 19:39 Tubes/Lines None 07/02/24 19:39 Gait Evaluation W/no contributing factors 07/02/24 19:39 Cognition No cognitive impairment 07/02/24 19:39 Fall Total Score 07/02/24 19:39 Level of Risk Moderate Risk 07/02/24 19:39 Problems (Last Updated 07/02/24 @ 21:57 by Graeme Denis MD) Hypokalemia (Acute) Multiple sclerosis exacerbation (Acute) v v v v v v v v v Sending and/or Receiving Nurses: Please use comment section below to note any information pertinent to the patient hand-off not included above. Information / Comments: homeless male, admitted for MS flare up. VS stable, gait a little unsteady but able to walk. Report received from: Initial call at ED 22:22, nurse not available. Report from Ghulam @ ED 22:44
[2024-07-02] MEDS: Acetaminophen 325 MG TAB 650 MG PO (23:22)
--- NOTE | 2024-07-03 | DI.MRI_ITS ---
Exam(s) MR THORACIC SPINE WO/W EXAM: MR THORACIC SPINE WO/W CLINICAL HISTORY: MS flare. TECHNIQUE: Multiplanar multisequence MRI of the Thoracic spine was performed. CONTRAST MATERIAL: IV Contrast: 13 mL of Dotarem contrast administered. COMPARISON: No exams were available for comparison FINDINGS: Bones: The vertebral body heights are well maintained. Mild scoliosis. The signal characteristics are unremarkable. Cord: The thoracic cord is normal size and signal intensity. No intrinsic cord lesion is present. Discs: No disc herniation or bulge is present. Soft tissues: Normal. There is no evidence of suspicious enhancement. IMPRESSION: Scoliosis. Normal cord signal. DATA REPOSITORY:
--- NOTE | 2024-07-03 | DI.MRI_ITS ---
Exam(s) MR CERVICAL SPINE WO/W EXAM: MR CERVICAL SPINE WO/W CLINICAL HISTORY: MS flare TECHNIQUE: Multiplanar multisequence MRI of the cervical spine was performed without intravenous con trast followed by postcontrast T1 axial and sagittal sequences.. COMPARISON: No exams were available for comparison FINDINGS: Exam is significantly limited by motion. BONES: Vertebral body heights are maintained. Alignment is normal. Bone marrow signal intensity is wi thin normal limits. CERVICAL CORD: Craniovertebral junction is unremarkable. From there is an area of high signal seen i n the upper cervical cord, at the C2 level measuring 13 millimeters in length. No visible enhancemen t. SOFT TISSUES: Unremarkable. The C2-3 disc space is maintained. There is mild loss of disc height from C4-5 through C6-7 with sma ll endplate osteophytes. No central canal stenosis at any level. . IMPRESSION: Area of abnormal high signal in the upper cervical cord suspicious for MS plaque. No enhancement. DATA REPOSITORY:
--- NOTE | 2024-07-03 | DI.MRI_ITS ---
Exam(s) MR BRAIN WO/W EXAM: MR BRAIN WO/W CLINICAL HISTORY: MS flare. TECHNIQUE: Multiplanar multisequence MRI of the brain was performed. CONTRAST MATERIAL: IV Contrast: 13 ML of Dotarem contrast administered. COMPARISON: No exams were available for comparison FINDINGS: On exam is limited by motion. VENTRICLES AND EXTRA AXIAL SPACES: Normal in size and morphology for the patient's age. HEMORRHAGE: None. CEREBRAL PARENCHYMA: No focus of restricted diffusion to suggest acute infarct. No space-occupying le jean carlos identified. There are several abnormal high signal lesions are noted in the periventricular w alli matter. The largest is adjacent to the posterior horn of the left lateral ventricle which measu res approximately 2.3 cm in in greatest dimension. No lesions show associated enhancement. No corpu s callosum lesions. Mild atrophy. BRAINSTEM/CEREBELLUM: Normal. CALVARIUM: Normal. ENHANCEMENT: No suspicious enhancement identified. VISUALIZED PARANASAL SINUSES/MASTOIDS: Clear. Orbits: Unremarkable. Pituitary: Not enlarged. Vasculature: Normal flow voids. IMPRESSION: Abnormal high signal lesions in the white matter suspicious for areas of demyelination. DATA REPOSITORY:
[2024-07-03 02:07] VITALS: BP 140/93; PULSE 82; RESP 16; TEMP 36.4; O2SAT 100
[2024-07-03 07:34] VITALS: BP 113/74; PULSE 81; RESP 18; TEMP 36.5; O2SAT 99
[2024-07-03] MEDS: Escitalopram 10 MG TAB PO (07:47)
[2024-07-03] MEDS: Ibuprofen 600 MG TAB PO (07:48)
[2024-07-03] MEDS: Pantoprazole 40 MG TABCR PO (07:50)
[2024-07-03] MEDS: Aspirin E.C. 81 MG TABEC PO (07:50)
[2024-07-03] MEDS: Folic Acid 1 MG TAB PO (07:51)
[2024-07-03] MEDS: Gabapentin 300 MG CAP PO ×3 (07:51→19:28)
[2024-07-03] MEDS: Enoxaparin 40 MG/0.4 ML SYR SC (07:53)
--- NOTE | 2024-07-03 08:43 | PDOC.CMIN ---
Date of service: 07/03/24 Time of Service: 12:35 Care Management Initial Assmt Initial Assessment Reason for Hospitalization: Multiple sclerosis exacerbation, Hypokalemia Functional Status/Living Situation Patient Presentation: Tulio went down for imaging (which will take several hours) and wasn't unavailable to meet with CM . Per report he lives in a condominium with his significant other and children. 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 CM will continue to follow Town of Residence: [place], [place] (per chart) Resides with: Spouse Employment Status: Unemployed Instrumental Activities of Daily Living (ADLs): Independent (Per second vp hr assessment) Physical Functioning/Mobility Assistive Device: None Advance Directives Advance Directives: Do you have an Advance Directive: N 05/11/23 09:00 AD On File at [facility]: N 05/11/23 09:00 Date Asked 07/02/24 07/02/24 17:17 AD Date Reviewed COLST On File at [facility] COLST Date Scanned Code Status Resuscitation Status Full Code Portal Pt does not currently have a portal and education provided: Yes Insurance Coverage/Financial Issues Insurance: [place] Financial Issues: unemployed, food insecurity has been identified in second vp hr assessment. Care Team Visit Care Team Role Provider Type Kannan Aldrich MD [facility] STAFF PHYSICIAN Ghulam Garcia Primary Care Provider [employer] Raffi Boles Other Providers OTHER HONORIO Evans Emergency Provider [employer] Graeme Denis MD Admit Provider [facility] STAFF PHYSICIAN Attending Provider Discharge Anticipated Barriers to Discharge: None Identified Patient/Family Education Needs: Review discharge instructions, discuss Ask Me Three Transportation: Private vehicle Plan: Tulio requires further medical workup, imaging and is being closely monitored for MS flare. CM will follow and support recommendations and offer a referral to [facility], if agreeable. Discharge planning continues, CM will follow. Social Determinants of Health Screening Social Determinants of Health last assessed: 07/03/24 Will the Patient Participate in the Screening?: Yes Do you worry about having a steady place to live?: no Problems where you live: no known problems In the past 12 months, have you had to go without electric, gas, oil or water in your home?: no Have you or anyone in your house had to go without enough food to eat?: no Has lack of transportation kept you from medical appointments or from doing things needed for daily living?: no Has anyone in your life made you feel unsafe or unsupported?: no How hard is it for you to pay for the very basics like food, housing, medical care, and heating? Would you say it is:: Not hard at all Do you want help finding or keeping work or a job?: Yes, help finding work If for any reason you need help with day-to-day activities such as bathing, preparing meals, shopping, managing finances, etc., do you get the help you need?: I don?t need any help How often do you feel lonely or isolated from those around you?: Never Do you speak a language other than Kiswahili at home?: No Does the patient want assistance with any of the above?: No Health Related Social Needs Health related social needs: food insecurity (Z59.41) and problems finding work (Z56.9) PFSH All Active Problems (Updated 07/02/24 @ 22:04 by Graeme Denis MD) Hypokalemia (Acute) Multiple sclerosis exacerbation (Acute) Medical History (Updated 07/02/24 @ 22:04 by Graeme Denis MD) Anxiety and depression Alcohol abuse quit in 04/2024 Erectile dysfunction ADHD Left wrist fracture as a child Fracture of right tibia and fibula approx 2014, s/p ORIF Acetabulum fracture, right Multiple sclerosis Social History Smoking/Tobacco Use Status: Current every day Tobacco Type: e-cigarettes Smoking risk assessment performed?: Yes Alcohol Intake: current Alcohol Intake frequency: holidays/special occasions only Alcohol type: beer Drug use: Daily Substance use type: marijuana Housing: condominium Do you feel safe at home: Yes Do you feel safe in your relationship?: Yes
[2024-07-03 09:16] LABS: Abs Immature Grans 0.02 10^3/uL (0.0-0.06); Absolute Basophil Count 0.01 10^3/uL (0.0-0.2); Absolute Lymphocyte Count 0.97 10^3/uL (1.2-3.4); Absolute Monocyte Count 0.08 10^3/uL (0.1-0.8); Absolute Neutrophil Count 4.58 10^3/uL (1.2-6.7); Basophils % 0.2 %; HCT 36.7 % (40.0-50.0); HGB 12.2 g/dL (13.5-17.5); Immature Grans % 0.4 %; Lymphocytes % 17.1 %; MCH 30.7 pg (27.0-33.0); MCHC 33.2 % (32.0-36.0); MCV 92 fL (80-95); MPV 8.9 fL (8.0-11.0); Monocytes % 1.4 %; Neutrophils % 80.9 %; Platelet Count 394 10^3/uL (130-400); RBC 3.97 10^6/uL (4.36-5.78); RDW 13.3 % (11.8-14.1); RDW-SD 44.9 fL; WBC 5.66 10^3/uL (4.4-10.8)
[2024-07-03 09:30] LABS: Anion Gap 13.7 mmol/L (3-11); BUN 31 mg/dL (7-18); CO2 23.3 mmol/L (21.0-32.0); CREATININE 0.9 mg/dL (0.70-1.30); Calcium 9.4 mg/dL (8.5-10.1); Chloride 110 mmol/L (98-107); Estimated GFR 102.76 (mL/min/1.73m2); Glucose 143 mg/dL (74-106); Potassium 3.7 mmol/L (3.5-5.1); Sodium 147 mmol/L (136-145)
--- NOTE | 2024-07-03 09:51 | W.PM.PROGNOT ---
Date of Service Date of service: 07/03/24 Time of Service: 09:51 Assessment and Plan Assessment and plan (1) Multiple sclerosis exacerbation: Status: Acute Assessment and plan: Patient with longstanding multiple sclerosis here for a possible flare of symptoms. The ED provider spoke with Dr. Paul at [facility] neurology. It is recommended he be admitted and be set up for an MRI of his brain and spinal column with contrast, which is pending. If there is no new lesion we can stop the steroids. If there is a new lesion continue with a 5-day course of 1 g methylprednisolone daily. Call out to his regular neurologist, Brook Nevarez MD. I agree with Dr. Denis that it is not clear this represents a significant MS flare especially with him admitting to improved symptomatology during the ED visit. There was some concern that previous UTI was causing weakness, u/a on admission not c/w UTI premedication ordered for MRI PT before discharge He reports semiannual infusions for MS, need record on this therapy (2) Hypokalemia: Status: Acute Assessment and plan: Potassium was low at 3.2 in the ED. He received 40 mEq p.o. normal this morning (3) Anxiety and depression: Assessment and plan: continue home medications, appears stable. Subjective Subjective Patient reports: tolerating a regular diet and voiding w/o difficulty; denies diarrhea, nausea, vomiting, shortness of breath or fever Interval history since last seen: states he came in because legs were feeling weak and in pain in legs. this is not new, but it was worse. He isn't sure if it is MS. He had been walking. He is nervous about the prolonged MRI. No focal weakness. no vision changes or swallowing difficulty. No pain with urination or changes in flow or blood, but he does get leaking incontinence of bladder, not bowel. Exam Narrative Exam Narrative: No apparent distress. Alert and oriented, Lungs CTAB with normal effots CV RRR no m/g/r abd soft, NT/ND extremities without cyanosis, clubbing, or edema. normal ROM, no joint swelling/redness neuro: CN 2-12 intact. Symmetric strength dequan UE/LE except slight weakness left foot dorsiflexion. Overall gross sensation appears to be intact. DTRs symmetric. nl speech, no tremor. He is able to move around in bed, did not try to stand/walk. Objective Last Vital Signs Temp 36.5 C 07/03/24 07:34 Pulse 81 07/03/24 07:34 Resp 18 07/03/24 07:34 BP 113/74 07/03/24 07:34 Pulse Ox 99 07/03/24 07:34 Laboratory Results - last 24 hr 07/02/24 07/02/24 07/02/24 17:56 18:15 19:20 WBC 6.03 RBC 4.06 L Hgb 12.6 L Hct 38.0 L MCV 94 MCH 31.0 MCHC 33.2 RDW 13.6 Plt Count 426 H MPV 9.2 Immature Gran % 0.3 Neutrophils % 62.0 Lymphocytes % 29.4 Monocytes % 6.6 Eosinophils % 0.7 Basophils % 1.0 Nucleated RBC % 0.0 Absolute Neutrophils 3.74 Absolute Lymphocytes 1.77 Absolute Monocytes 0.40 Absolute Eosinophils 0.04 Absolute Basophils 0.06 Sodium 144 Potassium 3.2 L Chloride 108 H Carbon Dioxide 22.7 Anion Gap 13.3 H BUN 24 H Creatinine 0.9 Est GFR (CKD-EPI 2020) 102.76 Glucose 81 Calcium 9.6 Total Bilirubin 1.6 H AST 12 L ALT 17 Alkaline Phosphatase 132 H Total Protein 7.6 Albumin 4.7 Urine Color Yellow Urine Clarity Clear Urine pH 6.5 Ur Specific [place] 1.025 Urine Protein 30 H Urine Ketones 80 H Urine Blood Negative Urine Nitrite Negative Urine Bilirubin Small H Urine Urobilinogen 2.0 H Ur Leukocyte Esterase Negative Urine RBC 3-5 H Urine WBC 0-2 Ur Epithelial Cells Rare Urine Crystals Rare Amorphous Urine Bacteria Negative Urine Mucus Moderate Ur Culture Indicated? No Urine Glucose Negative COVID-19 Source Nasopharynx SARS-CoV-2 (PCR) Negative Influenza Type A (PCR) Negative Influenza Type B (PCR) Negative RSV (PCR) Negative 07/03/24 09:05 WBC 5.66 RBC 3.97 L Hgb 12.2 L Hct 36.7 L MCV 92 MCH 30.7 MCHC 33.2 RDW 13.3 Plt Count 394 MPV 8.9 Immature Gran % 0.4 Neutrophils % 80.9 Lymphocytes % 17.1 Monocytes % 1.4 Eosinophils % 0.0 Basophils % 0.2 Nucleated RBC % 0.0 Absolute Neutrophils 4.58 Absolute Lymphocytes 0.97 L Absolute Monocytes 0.08 L Absolute Eosinophils 0.00 Absolute Basophils 0.01 Sodium 147 H Potassium 3.7 Chloride 110 H Carbon Dioxide 23.3 Anion Gap 13.7 H BUN 31 H Creatinine 0.9 Est GFR (CKD-EPI 2020) 102.76 Glucose 143 H Calcium 9.4 Total Bilirubin AST ALT Alkaline Phosphatase Total Protein Albumin Urine Color Urine Clarity Urine pH Ur Specific [place] Urine Protein Urine Ketones Urine Blood Urine Nitrite Urine Bilirubin Urine Urobilinogen Ur Leukocyte Esterase Urine RBC Urine WBC Ur Epithelial Cells Urine Crystals Urine Bacteria Urine Mucus Ur Culture Indicated? Urine Glucose COVID-19 Source SARS-CoV-2 (PCR) Influenza Type A (PCR) Influenza Type B (PCR) RSV (PCR) Time Spent with Patient Time Spent with Patient: 35-49 minutes Time was spent: preparing to see the patient(eg.review tests), obtaining and/or reviewing separately otained hiistory, ordering medications,tests, procedures, referring, communicating with other health health care facility administrator, indepentently interpreting results, counseling the patient and care coordination
[2024-07-03] MEDS: diazePAM 5 MG TAB PO (09:58)
--- NOTE | 2024-07-03 10:00 | PT.INIE ---
PT Notes Visit Reasons: MS flare Inpatient Physical Therapy Initial Evaluation Date: 07/03/2024 Referring Doctor: Graeme Denis MD PT Orders: PT CONSULT: Safety Conslut for D/C Precautions: Activity as tolerated. Fall risk. Satndard precautions. Patient Profile/Admitting Diagnosis: Tulio is a 53-year -old male patient diagnosed with multiple sclerosis over 8 years ago who presented to the ED on 07/02/2024 due to complaints of feet and ankle sensory changes, pain, and difficulty walking. [facility] exacerbation and hypokelmia. Patient has been on Ocrelizumab infusion every 6 months for MS through [facility]. He has been going to outpatient PT for strengthening, balance, and functional mobility training. Social History/Home Situation: Patient lives with his girlfriend in an apartment with 4 steps to enter; he has another flight of steps to the second floor of his house to the bedroom. 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 Independent without an assistive device for all mobility ADL performance. Equipment Owned/DME: [facility] Subjective: Tulio has never had an admission for his MS in the past. He adds that the past 2 days have been his most difficult time with movement and walking. He has had some infusions since diagnosis at [facility] with Ocrevus. Agreeable to a mobility assessment. He has fallen more than 5x (but less than 10x) in the past year. he complains of pins and needles in B feet accompanied by pain that limits his gait stability. He adds that he has not been able to efffectively bring both feet up which is contributing to his unstable gait. Denied headache, chest pain, and lightheadedness throughout. Objective: General Observation: Resting in bed. IV in RUE. No additional lines. Kinesiotape to B crural areas. Mental Status: Alert and cooperative throughout. Able to follow multiple step commands. Pain: None reported ROM: Right Upper Extremity: Shoulder Flexion WFL. Shoulder abduction WFL. Elbow flexion WFL. Wrist flexion WFL. Functional opening and closing of hand WFL. Left Upper Extremity: Shoulder Flexion WFL. Shoulder abduction WFL. Elbow flexion WFL. Wrist flexion WFL. Functional opening and closing of hand WFL. Right Lower Extremity: Hip flexion WFL. Hip abduction WFL. Knee flexion WFL. Ankle dorsiflexion to neutral only. Ankle plantarflexion WFL. Left Lower Extremity: Hip flexion WFL. Hip abduction WFL. Knee flexion WFL. Ankle dorsiflexion to neutral only. Ankle plantarflexion WFL. Strength: Right Upper Extremity: Shoulder flexors 4-/5. Shoulder abductors 4-/5. Elbow flexors 4-/5. Elbow extensors 4-/5. Candy Cutter Machine decreased based on age norm. Left Upper Extremity: Shoulder flexors 4-/5. Shoulder abductors 4-/5. Elbow flexors 4-/5. Elbow extensors 4-/5. Candy Cutter Machine decreased based on age norm. Right Lower Extremity: Hip flexors 4/5. Hip abductors 4/5. Knee flexors 4/5. Knee extensors 4-/5. Ankle dorsiflexors 3-/5. Ankle plantarflexors 4-/5. Left Lower Extremity: Hip flexors 4/5. Hip abductors 4/5. Knee flexors 4/5. Knee extensors 4-/5. Ankle dorsiflexors 3-/5. Ankle plantarflexors 4-/5. Bed Mobility/Transfers: Minimal cueing provided for use of B hands as needed for support, movement sequence, AD management, and posture to reduce fall risk and minimize pain report supine-sit: independent sit-stand: supervision stand-sit: supervision Gait: Covered a distance of 150 feet + 150 feet with decreased ability to perform normal gait biomechanics with decreased dorsiflexion in B feet from weak pretibial muscles. Contact guard assist provided as patient demonstrated narrowed base of support with mild scissorring observed. Mild steppage gait seen on B sides. Patient verbalized lesser ability to control B ankle muscles than usual. No LOB. No SOB. Stairs: Guided patient with safe and correct negotiation of 6 x 4-inch steps and 4 x 6-inch steps while holding onto B rails for support. Contact guard assist provided for safety. Decreased dorsiflexion during each ascent but able to clear foot off with some difficulty. Balance: Static Sitting: Normal Dynamic Sitting: Normal Static Standing: Good Dynamic Standing:Fair Special Tests: Mobility Limitations Standardized Measure [facility] AM-PAC 6 clicks Basic Mobility Inpatient Short Form: Raw Score: 22 CMS Score: 21% Romberg Test: Positive Rapid Alternating Movement: Impaired 4-Stage balance test: Feet together 10 seconds Semi tandem 10 seconds Full tandem unable to tolerate One-legged stance deferred Informed Consent/Education: Informed Consent/Education: Patient instructed in purpose of PT consult and plan of care. Agreeable to proceed with established PT POC to achieve personal goals. Assessment: Tulio is a 53-year -old male patient diagnosed with multiple sclerosis over 8 years ago who presented to the ED on 07/02/2024 due to complaints of feet and ankle sensory changes, pain, and difficulty walking. Tulio is admitted under observation to manage MS exacerbation and hypokelmia. Patient has been on Ocrelizumab infusion every 6 months for MS through [facility]. He has been going to outpatient PT for strengthening, balance, and functional mobility training. Patient presents with clinical signs and symptoms consistent with current/admitting diagnoses that have resulted to mobility limitations, gait instability, generalized weakness, and overall ADL decline as demonstrated by the following impairment level findings: 1. Decreased strength to B UE/LE major muscle groups most pronounced at B ankles 2. Impaired sitting/standing balance 3. Impaired activity tolerance 4. Limitation of joint range of motion in B ankles for DF 5. Incoordination Impairments are contributing to the following functional limitations: 1. Decline in bed mobility skills 2. Decline in transfer skills 3. Difficulty with ambulation without assistive device 4. Increased completion time for mobility ADL performance 5. Increased risk for falls Patient is assessed as a [id number] moderate complexity based on the following: History: 53-year-old female with past medical history as indicated above Examination: Demonstrable impairment in strength, balance, and mobility level with underlying impairments and functional limitations as exhibited above as well as deficit score of 21% utilizing the [facility] Mobility Inpatient Short Form Presentation: Evolving Decision Makin moderate complexity Goals: Goals X1 week 1. Supine-Sit : independent 2. Sit-Supine : independent 3. Sit-Stand : independent 4. Stand-Sit : independent 5. Bed-Chair : independent with no assistive device vs FWW 6. Chair-Bed : independent with no assistive device vs FWW 7. Gait : independent x 350' with no assistive device vs FWW 8. Stairs independent with B rails for up to 12 steps Plan of Care/Treatment Plan: 1-2x/day, 7 days/week x 1 week. Plan of care has been reviewed with the CIGAR HEAD HOLER providing the service under Physical Therapy direction. Initiate Physical Therapy intervention for strengthening, bed mobility, transfers, gait, stairs, balance training, use of assistive device. DISCHARGE RECOMMENDATIONS: Continues with OP PT for balance training, strengthening, and mobility training TREATMENT CODE/TIME: 87992 x 29 minutes for 1 unit (10:00-10:29). Thank you for the opportunity to participate in the care of this patient. Sugey Smith PT, DPT, CLT [facility] [place], [place]
--- NOTE | 2024-07-03 10:58 | W.NUTRFU ---
Date of service: 07/03/24 Time of Service: 10:58 Nutrition Note NOTE: 53yo male with low potassium and MS exacerbation. Tolerating a regular diet with fair intake over the last 24 hours. Albumin and total protein labs wnl today. Pt weight initially taken verbally as 72kg but later bedscale reads 65.6kg - pt denies significant weight loss over the last year but doesn't weight himself often. Pt initially screened as lower nutr risk - will monitor weight and related nutrition labs. Pt aware ONS can be ordered at meals and nourishment times if he wants an easy to drink/eat source of protein and/or kcals - kitchen staff will offer. Time Spent in Nutritional Counseling and Treatment: 5 min
--- NOTE | 2024-07-03 11:16 | PHA.REVIEW2 ---
Pharmacy Admission Review Admission Clinical Review Admission Pharmacy Review: Hypokalemia (Acute) Multiple sclerosis exacerbation (Acute) No Known Allergies Allergy (Unverified 07/02/24 17:18) Resuscitation Status Full Code Height 5 ft 9 in Weight 65.6 kg Comments Comments/Follow Ups: blood culture pending Pharmacy Admission Review Renal Dosing Renal Dosing: BUN 31 mg/dL (7-18) H 07/03/24 09:05 Creatinine 0.9 mg/dL (0.70-1.30) 07/03/24 09:05 Medications needing adjustments: Reviewed (CrCl 89 mL/min, BUN increased from 24) List of meds needing interventions: Current medications are okay Anticoagulation Anticoagulation: Hgb 12.2 g/dL (13.5-17.5) L 07/03/24 09:05 Hct 36.7 % (40.0-50.0) L 07/03/24 09:05 Plt Count 394 10^3/uL (130-400) 07/03/24 09:05 Creatinine 0.9 mg/dL (0.70-1.30) 07/03/24 09:05 DVT Prophylaxis: Reviewed (Hgb slightly decreased from 12.6) Medications: Enoxaparin (40mg daily) Opiate Usage Evaluate Pain Scale/Pains Meds: Reviewed (oxycodone 5mg PO q6h PRN - no doses given) Scheduled Bowel Reg ordered if on Opiates?: No (PRN Miralax) Relevant Labs Relevant Labs: Sodium 147 mmol/L (136-145) H 07/03/24 09:05 Potassium 3.7 mmol/L (3.5-5.1) 07/03/24 09:05 Chloride 110 mmol/L (98-107) H 07/03/24 09:05 Electrolytes, C-Reactive P, ESR: Reviewed Cardiac Review BP, HR, EF%: Reviewed (BP and HR WNL) QTc Review QTc: Reviewed (437 from 04/25/24 - most recent EKG on file) IV to PO Switch IV Medications: Reviewed Home Meds Home Med List reviewed: Intervened Relevent Home Meds Not ordered & why?: sildenafil (PRN) Asked nurse to verify how patient takes ibuprofen at home. Is on home med list as 600mg QID but more recently filled prescription says 800mg BID PRN. Per nurse patient said they take 800mg once daily in the morning. I updated home med list and changed order to 800mg daily PRN. Provider aware of change. Current Meds Current Medication Order Review: Reviewed Comments Comments/Follow Ups: blood culture pending
[2024-07-03] MEDS: Gadoterate meglumine 20 ML SYRINGE 13 ML IVP (11:49)
[2024-07-03] MEDS: Normal Saline Flush 10 ML SYR IVP ×2 (11:50→20:29)
--- NOTE | 2024-07-03 14:14 | NUR.NOTE ---
Nursing Note: Documentation by Reginaldo Dumont, student [employer] reviewed and in agreement. Michelle Dill MSN, RNC-OB, clinical instructor
[2024-07-03 15:21] VITALS: BP 132/83; PULSE 79; RESP 18; TEMP 36.8; O2SAT 99
--- NOTE | 2024-07-03 15:42 | PT.INTREAT ---
PT Notes Visit Reasons: MS flare Inpatient Physical Therapy Treatment Note Date: 07/03/2024 Precautions: Activity as tolerated. Fall risk. Standard precautions. Subjective: That Valium did me in. Too drowsy from this late morning's 5 mg of Valium that he took for the MRI testing. Nurse Ludy was able to wake him up for PT and patient was agreeable only to standing and seated exercise. Did not feel safe goign for a walk and politely refused it. Objective: General Observation: Resting in bed. IV in RUE. No additional lines. Kinesiotape to B crural areas. Patient with tremors at rest. Mental Status: Alert and cooperative throughout. Able to follow multiple step commands. Pain: None reported Bed Mobility/Transfers: Minimal cueing provided for use of B hands as needed for support, movement sequence, AD management, and posture to reduce fall risk and minimize pain report supine-sit: independent sit-stand: supervision stand-sit: supervision Gait: Refused THERA EX: Direct one-on-one instruction on corect execution and safe performance of exercises as follows: Standing heel raises B sides x 10 Standing high marches x 10 Toe tapping exercises using 10 inch high step x 10 with emphasis on increasing DF each time and then slowly tapping dge of stool B LAQs x 10 Stairs: Deferred Balance: Static Sitting: Normal Dynamic Sitting: Normal Static Standing: Good Dynamic Standing:Fair Assessment: Only agreeable to standing and seated exercises as he was feeling too drowsy and shaky to be going walking despite walker use. Tulio is a 53-year -old male patient diagnosed with multiple sclerosis over 8 years ago who presented to the ED on 07/02/2024 due to complaints of feet and ankle sensory changes, pain, and difficulty walking. Tulio is admitted under observation to manage MS exacerbation and hypokelmia. Patient has been on Ocrelizumab infusion every 6 months for MS through [facility]. He has been going to outpatient PT for strengthening, balance, and functional mobility training. Plan of Care/Treatment Plan: 1-2x/day, 7 days/week x 1 week. Plan of care has been reviewed with the [employer] providing the service under Physical Therapy direction. Initiate Physical Therapy intervention for strengthening, bed mobility, transfers, gait, stairs, balance training, use of assistive device. DISCHARGE RECOMMENDATIONS: Continues with OP PT for balance training, strengthening, and mobility training TREATMENT CODE/TIME: 93928 x 31 minutes for 2 units (15:02-15:33).
[2024-07-03 18:57] VITALS: BP 115/84; PULSE 81; RESP 19; TEMP 37.1; O2SAT 97
[2024-07-03] MEDS: QUEtiapine 50 MG TAB PO (21:56)
[2024-07-04 07:27] VITALS: BP 123/90; PULSE 86; RESP 18; TEMP 36.7; O2SAT 97
[2024-07-04] MEDS: Pantoprazole 40 MG TABCR PO (07:52)
[2024-07-04] MEDS: Gabapentin 300 MG CAP PO (07:52)
[2024-07-04] MEDS: Enoxaparin 40 MG/0.4 ML SYR SC (07:52)
[2024-07-04] MEDS: Escitalopram 10 MG TAB PO (07:52)
[2024-07-04] MEDS: Normal Saline Flush 10 ML SYR IVP (07:52)
[2024-07-04] MEDS: Aspirin E.C. 81 MG TABEC PO (07:52)
[2024-07-04] MEDS: QUEtiapine 50 MG TAB PO (07:52)
[2024-07-04] MEDS: Folic Acid 1 MG TAB PO (07:52)
--- NOTE | 2024-07-04 08:50 | PTTR_ITS ---
PT Notes Visit Reasons: MS flare Inpatient Physical Therapy Treatment Note Date: 07/04/2024 Precautions: Activity as tolerated. Fall risk. Standard precautions. Subjective: Had a good breakfast. Feels much better. Hoping to go home today. Wondering if the lesions seen in the MRI were new or were not. Objective: General Observation: Resting in bed. IV in RUE. No additional lines. Kinesiotape to B crural areas. Patient with tremors at rest. Mental Status: Alert and cooperative throughout. Able to follow multiple step commands. Pain: None reported Bed Mobility/Transfers: Minimal cueing provided for use of B hands as needed for support, movement sequence, AD management, and posture to reduce fall risk and minimize pain report supine-sit: independent sit-stand: independent stand-sit: independent Gait: 200 feet + 200 feet without an assistive device. Bilateral steppage gait evident in B sides with increased tendency to narrow base of support and almost scissor. Stand by assist provided. Patient verbalized that he has a walker that he can use at home if needed. NEUROMUSCULAR RE-EDUCATION: Facilitated slow and controlled activities to enhance safe and optimal gait b iomechanics with focus on increased step height and width while promoting anterior/posterior/mediolateral dynamic balance awareness during ambulation activities : 1. Unassisted walking with wall rail on one side with tactile and verbal cueing provided to increase hip and knee flexion reciprocally to allow foot clearance during swing phase -- 20 feet x 6 reps 2. Unassisted side stepping to R and to L with wall rail in front with verbal cues for upright posture with patient reporting increased sense of balance with head partially bent --20 feet x 3 to L and x 3 to R 3. Unassisted backward walk with rail on one side with tactile cues on back to provide awareness in space and prevent a fall -- 20 feet x 6 4. Toe tapping exercises using 10 inch high step x 10 with emphasis on increasing DFeach time and then slowly tapping edge of stool Stairs: Guided patient with stair negotiation utilizing 6 x 4-inchs teps and 4 x 6-inch steps while holding onot B rails with stand by assist, verbal cues provided to increase hip and knee flexion to allow adequate foot clearance Balance: Static Sitting: Normal Dynamic Sitting: Normal Static Standing: Good Dynamic Standing:Fair Assessment: New onset weakness in B ankles resulting to mild steppage gait and narrowed base of support which can increase fall risk. Patient was prescribed by hopsitalist with medical management using steroids while on admission to minimize MS exacerbation. Patient will highly benefit from continued rehabiliatttion to address new onset weakness and coordination issues that can incrase risk for falls. He was instructed to use front-wheeled walker as needed to minimize fatigue and fall risk at home. Plan of Care/Treatment Plan: resume OP PT services for continued strength, neuromuscular re-education, and functional mobility retraining to mitigate/or provide compensatory strategies for functional impairments. DISCHARGE RECOMMENDATIONS: Continues with OP PT for balance training, strengthening, and mobility training TREATMENT CODE/TIME: 61047 x 31 minutes for 2 units (08:50-09:23).
[2024-07-04 10:47] LABS: Lyme Ab w Rflx to Lyme Confirm Negative (Negative)
--- NOTE | 2024-07-04 11:54 | DSE_ITS ---
Date of service: 07/04/24 Time of Service: 11:54 DS: Diagnosis Discharge Diagnosis (1) Multiple sclerosis exacerbation: Status: Acute (2) Hypokalemia: Status: Acute Discharge Plan Disposition Patient Disposition: Home Condition: Improving Discharge Details Reason For Visit: MS flare Admit Date/Time: 07/02/24 21:40 Admit Provider: Graeme Denis Attending Provider: Graeme Denis Primary Care Provider: Ghulam Garcia Hospital Course Hospital Course: Discharge Diagnosis: * Possible multiple sclerosis flare * History of MS * History of fungal UTI * Weakness and pain in legs, likely related to MS * Recent hospitalization for MS flare and fungal UTI Reason for Admission: The patient presented with increased weakness and pain in the legs, which had worsened recently. He has a longstanding history of multiple sclerosis for the past 10 years. He was recently hospitalized for an MS flare and a fungal UTI. The patient had been undergoing weekly physical therapy, reporting some progress. During the ED visit, no focal weakness, vision changes, or swallowing difficulties were noted, although he had to be assisted into the ED. The primary concern was whether the patient was experiencing another MS flare or if his symptoms were related to other factors, such as the recent UTI. Hospital Course: Upon arrival to the ED, the patient underwent evaluation and was noted to have no focal weakness or abnormalities in his neurological exam. His strength was normal, and [id number] tests were unremarkable. Lab results were largely normal, and a tick panel was sent for further investigation. The ED provider consulted with Dr. Palu from [facility], and after discussing the case, it was recommended that the patient be admitted for further evaluation. The patient was given 1 gram of methylprednisolone. Neurology recommended an MRI of the brain and spinal column with contrast to rule out new lesions related to MS. If no new lesions were found, the methylprednisolone treatment could be discontinued. If new lesions were identified, a 5-day course of methylprednisolone would be continued. The patient was also reassured that his symptoms had somewhat improved during the ED visit. It was not clear whether this represented a significant MS flare. During the hospital stay, concerns about the previous UTI affecting his symptoms were addressed, but a urine analysis on admission did not indicate a current UTI. A premedication for MRI was ordered, and the patient was scheduled for physical therapy before discharge. Plan at Discharge: * Follow-up with Neurology: The patient is scheduled for a follow-up appointment with his regular neurologist, Cristian Nevarez MD, for further evaluation and management of his MS symptoms. [facility] Neurology will review the MRI results and contact the patient with findings. * Follow-up with Primary Care Physician (PCP): The patient should follow up with his primary care physician to continue care for his MS and related health concerns. * Physical Therapy: The patient will continue out patient physical therapy to help address his weakness and pain in the legs. Weekly physical therapy has been effective so far. * Medication: * Continue methylprednisolone if new lesions are identified on the MRI. If no new lesions, discontinue methylprednisolone. * The patient is tolerating a regular diet and has no issues with voiding or urinary function, though he does experience some incontinence of bladder (no bowel incontinence). * MRI: The MRI of the brain and spinal column will be conducted as planned, and results will dictate further management of his MS flare symptoms. * Other Medications: The patient is on semiannual infusions for MS therapy; documentation of this therapy should be obtained for the records. Discharge Instructions: * Follow up withyour neurologist, Cristian Nevarez MD, for MS management. * Follow up with your PCP for routine care. * Continue physical therapy. * Monitor for any new or worsening symptoms, including weakness, vision changes, or bladder issues. * Contact the medical team if there is any significant change in symptoms, or if there are concerns after the MRI results. Condition at Discharge: The patient is stable and ambulating with assistance. He is alert and oriented, and his symptoms have improved. Patient is in agreement with discharge plan. The patient is being discharged with plans for follow-up as outlined above. Home Meds and New Rx's Prescriptions: Continued quetiapine 50 mg tablet 50 mg PO BID Patient Comments: TAKE ONE TABLET BY MOUTH TWICE A DAY escitalopram oxalate 10 mg tablet 10 mg PO DAILY Patient Comments: TAKE ONE TABLET BY MOUTH EVERY DAY sildenafil (pulm.hypertension) 20 mg tablet 20 mg PO DAILY PRN Patient Comments: TAKE 2-5 TABLETS BY MOUTH ONCE A DAY NEEDED folic acid 1 mg tablet 1 mg PO DAILY Patient Comments: TAKE ONE TABLET BY MOUTH EVERY DAY ibuprofen 800 mg tablet 800 mg PO DAILY PRN Patient Comments: TAKE ONE TABLET BY MOUTH TWICE A DAY NEEDED, TAKE WITH FOOD OR MILK gabapentin 300 mg capsule 300 mg PO TID acetaminophen 325 mg Tablet 650 mg PO Q6H Qty: 0 0RF pantoprazole 40 mg Tablet,Delayed Release (Dr/Ec) 40 mg PO DAILY@0730 Qty: 30 0RF oxycodone 5 mg Tablet 5 mg PO Q6H PRN PRNQty: 20 0RF aspirin 81 mg capsule 81 mg PO BID Qty: 1 0RF Discharge Instructions Additional Instructions: Follow up with your neurologist and PCP. [facility] neurology is reviewing your MRI. They will call you if any concerns. Referrals: Ghulam Garcia [Primary Care Provider] - (1 week post hospitalization visit) CRISTIAN NEVAREZ [ NON-[facility] STAFF PHYSICIAN] - (Post hospitalization for ? MS flare - as soon as available appointment for follow up please) Activity:: Activity as Tolerated Equipment/Supplies:: No Equipment Needed Diet:: As Tolerated Discharge Orders Discharge Orders: Discharge Order (Routine); Ordered 07/04/24 Ordered By: Ailyn Hawthorne DS: Summary Time Spent with Patient providing and/or coordinating discharge services: Less than 30 minutes Status at Discharge Functional status at discharge: independent ambulation Overall status at discharge: patient is back to baseline Mental Status: mental status grossly normal Speech and Movement: speech and movement normal Mood: congruent mood Affect: normal affect Quality:SDOH Health Related Social Needs: Health related social needs food insecurity (Z59.41), problems finding work (Z56.9) Exam Narrative Exam Narrative: No apparent distress. Alert and oriented, Lungs CTAB with normal effots CV RRR no m/g/r abd soft, NT/ND extremities without cyanosis, clubbing, or edema. normal ROM, no joint s welling/redness neuro: CN 2-12 intact. Symmetric strength dequan UE/LE except slight weakness left foot dorsiflexion. Overall gross sensation appears to be intact. DTRs symmetric. nl speech, no tremor. He is able to walk unassisted, with foot drop noted on left with ambulation. Psych Mental Status: mental status grossly normal Speech and Movement: speech and movement normal Mood: congruent mood Affect: normal affect DS: Data Vitals/I&O Vitals and I&O: Vital Signs Temperature 36.7 C 07/04/24 07:27 Temperature Source Temporal Artery Scan 07/04/24 07:27 Pulse 86 07/04/24 07:27 Pulse Rhythm Regular 07/02/24 22:56 Respiratory Rate 18 07/04/24 07:27 Respiratory Effort Normal, Non-Labored 07/02/24 22:56 Respiratory Depth Normal 07/02/24 22:56 Respiratory Pattern Normal 07/02/24 22:56 Blood Pressure 123/90 07/04/24 07:27 Blood Pressure Mean 97 07/02/24 20:31 Pulse Oximetry 97 07/04/24 07:27 Oxygen Delivery Method Room Air 07/04/24 07:27 Oxygen Flow Rate 0 07/04/24 07:27 Pain Level 0 07/03/24 18:57 Intake & Output 07/03/24 07/03/24 07/04/24 11:59 23:59 11:59 Intake Total 440 / 1110 670 / 1110 920 / 920 Balance 440 / 1110 670 / 1110 920 / 920 Intake: IV 110 / 110 Oral 440 / 1000 560 / 1000 920 / 920 Other: Urine Color Yellow Yellow Urine Appearance Clear Clear Urine Odor Normal Normal Comment pt said he voided 20 min ago.. no documentation on that prior to my shift Patient voided ind. in toilet. Stool Size Moderate Stool Characteristics Formed Brown Data Completed and Pending Labs on day of discharge: Preliminary micro results at discharge 07/02/24 18:15 Blood Culture - Preliminary Blood NO GROWTH 24 HOURS 07/02/24 18:30 Blood Culture - Preliminary Blood NO GROWTH 24 HOURS PFSH All Active Problems (Updated 07/04/24 @ 12:11 by Ailyn Hawthorne NP) Hypokalemia (Acute) Multiple sclerosis exacerbation (Acute) Medical History (Updated 07/04/24 @ 12:11 by Ailyn Hawthorne NP) Anxiety and depression Alcohol abuse quit in 04/2024 Erectile dysfunction ADHD Left wrist fracture as a child Fracture of right tibia and fibula approx 2014, s/p ORIF Acetabulum fracture, right Multiple sclerosis Social History Smoking/Tobacco Use Status: Current every day Tobacco Type: e-cigarettes Smoking risk assessment performed?: Yes Alcohol Intake: current Alcohol Intake frequency: holidays/special occasions only Alcohol type: beer Drug use: Daily Substance use type: marijuana Housing: condominium Do you feel safe at home: Yes Do you feel safe in your relationship?: Yes Time Spent with Patient Time Spent with Patient: <45 minutes Time was spent: preparing to see the patient(eg.review tests), ordering medications,tests, procedures, referring, communicating with other health wound care center consultant, indepentently interpreting results, counseling the patient and care coordination
--- NOTE | 2024-07-04 14:09 | PDOC.CMDIS ---
Date of service: 07/04/24 Time of Service: 14:09 LACE Index Scoring Tool Questions: Length of Stay (in days): 2 Was the patient admitted via the E.D.?: Yes E.D. Visits: 2 Answers: Total Score: 7 Risk of Readmission: Low Risk Care Management Discharge Plan Reason for Hospitalization: MS flare Discharge Plan: Tulio was discharged home today with a resumption of his out patient PT. He will follow up with his PCP, neurology and continue per his plan of care. He drove himself home via private vehicle. Patient/Family Education Needs: Review of discharge instructions, activity, limitations, and discuss Ask me 3. Services Needed at Discharge: Outpatient Therapy (PT) SDOH Health Related Social Needs: Health related social needs food insecurity (Z59.41), problems finding work (Z56.9)
[2024-07-06 00:33] LABS: Anaplasma phagocytophilum Negative (Negative); B. miyamotoi PCR Negative (Negative); Babesia divergens/MO-1 Negative (Negative); Babesia duncani Negative (Negative); Babesia microti Negative (Negative); Ehrlichia chaffeensis Negative (Negative); Ehrlichia ewingii/canis Negative (Negative); Ehrlichia muris eauclairensis Negative (Negative)
== END 2024-07-04 13:16 | disposition home or self-care (01) ==
LOC: ER 21:48 → MS 22:48
PROVIDERS: Admitting Provider Family Medicine; Emergency Provider Physician Assistant; PCP Physician Assistant; Responsible Provider Nurse Practitioner Family; Visit Provider Family Medicine
DX: G35 Multiple sclerosis (principal); E87.6 Hypokalemia; F32.A Depression, unspecified; F41.9 Anxiety disorder, unspecified; R53.1 Weakness; M79.605 Pain in left leg; M79.604 Pain in right leg; Z87.440 Personal history of urinary (tract) infections; Z79.899 Other long term (current) drug therapy; F17.290 Nicotine dependence, other tobacco product, uncomplicated
CPT/HCPCS: 00123; 36415; 70553; 80048; 80053; 87040; 87637; 87798; 96365; 96366; 96372; 97110; 97112; 97162; 99285; J1650; 72156; 72157; 81003; 81015; 85025; 86618; 99223; 99232; 99238; G0378; J2919

== ENCOUNTER 2024-08-18 22:43 | Inpatient (IN) | payer BC, SELFPAY ==
[2024-08-18 22:45] VITALS: BP 127/93; PULSE 90; RESP 30; TEMP 38.1; O2SAT 97; O2SAT 99
--- NOTE | 2024-08-18 22:45 | RT.EKG_ITS ---
APPROVED REPORT Exam: Resting ECG Reason for Exam: overdose Patient Location: E HR:76 bpm ECG Measurements Heart Rate 76 AXIS ID 180 P 67 QRSd 96 QRS 44 QT 406 T 52 QTc 457 Conclusion Sinus rhythm...normal P axis, V-rate 60- 99 I have reviewed and interpreted ECG and agree with software generated interpretation.
[2024-08-18 22:46] VITALS: PULSE 93; O2SAT 98
--- NOTE | 2024-08-18 23:04 | ED.GENADUL_ITS ---
Discharge Plan Disposition Patient Disposition: Admit to [facility] Condition: Improving Discharge Details Chief Complaint: OD/Poison Clinical Impression: Sepsis, Abdominal wall cellulitis, Chronic ulcer of right thigh, Accidental overdose of nitrous oxide, Acute dehydration Primary Care Provider: Ghulam Garcia ED Provider: Ruben Banda Home Meds and New Rx's Prescriptions: No Action Ocrevus 30 mg/mL solution 600 mg IV [id number] polyethylene glycol 3350 17 gram/dose powder 238 g PO ONCE Qty: 238 0RF Rx Instructions: take per colonoscopy instructions bisacodyl [Dulcolax (bisacodyl)] 5 mg tablet,delayed release (DR/EC) 5 mg PO ONCE Qty: 4 0RF Rx Instructions: take per colonoscopy instructions multivitamin Tablet 1 tab PO DAILY Ocrevus 30 mg/mL solution 300 mg IV [id number] quetiapine 50 mg tablet 50 mg PO BID Patient Comments: TAKE ONE TABLET BY MOUTH TWICE A DAY escitalopram oxalate 10 mg tablet 10 mg PO DAILY Patient Comments: TAKE ONE TABLET BY MOUTH EVERY DAY sildenafil (pulm.hypertension) 20 mg tablet 20 mg PO DAILY PRN Patient Comments: TAKE 2-5 TABLETS BY MOUTH ONCE A DAY NEEDED folic acid 1 mg tablet 1 mg PO DAILY Patient Comments: TAKE ONE TABLET BY MOUTH EVERY DAY ibuprofen 800 mg tablet 800 mg PO DAILY PRN Patient Comments: TAKE ONE TABLET BY MOUTH TWICE A DAY NEEDED, TAKE WITH FOOD OR MILK gabapentin 300 mg capsule 300 mg PO TID acetaminophen 325 mg Tablet 650 mg PO Q6H Qty: 0 0RF HPI General Date/Time Provider Initiated Documentation: 08/18/24 22:45 . HPI Narrative: This is a 53-year-old with a past medical history of multiple sclerosis, anxiety and depression, previous alcohol abuse, who presents today for nitrous oxide overdose. Patient was found slumped over in his car having defecated and urinated on himself. 2 large 3.3 L bottles of flavored nitrous gas were noted next to him. 5 total containers were present in the vehicle but only 2 were used. EMS was called and the patient was brought to the ER. He was alert and responsive when EMS arrived. Slightly sleepy, but otherwise normal and behavior. Patient denies any homicidal or suicidal ideations. He denies any alcohol use. He denies any numbness or tingling that is new. No other complaints at this time. He denies any other drug or medication use. He states that he has not been taking his regular medications for some time. Related Data Home Medications ?Medication ?Instructions ?Recorded ?Confirmed gabapentin 300 mg capsule 300 mg PO TID 05/11/23 08/09/24 acetaminophen 325 mg tablet 650 mg (2 x 325 mg) PO Q6H #0 tabs 05/13/23 08/09/24 escitalopram oxalate 10 mg tablet 10 mg PO DAILY 07/02/24 08/09/24 folic acid 1 mg tablet 1 mg PO DAILY 07/02/24 08/09/24 quetiapine 50 mg tablet 50 mg PO BID 07/02/24 08/09/24 sildenafil (pulm.hypertension) 20 20 mg PO DAILY PRN 07/02/24 08/09/24 mg tablet ibuprofen 800 mg tablet 800 mg PO DAILY PRN 07/03/24 08/09/24 multivitamin 1 tab PO DAILY 07/24/24 08/09/24 ocrelizumab 30 mg/mL intravenous 300 mg IV [id number] 07/24/24 08/09/24 solution (Ocrevus) bisacodyl 5 mg tablet,delayed 5 mg PO ONCE colonscopy bowel prep 08/09/24 08/09/24 release (Dulcolax (bisacodyl)) #4 tabs ocrelizumab 30 mg/mL intravenous 600 mg IV [id number] 08/09/24 08/09/24 solution (Ocrevus) polyethylene glycol 3350 17 238 g PO ONCE colonoscopy prep 08/09/24 08/09/24 gram/dose oral powder #238 grams Previous Rx's ?Medication ?Instructions ?Recorded acetaminophen 325 mg tablet 650 mg (2 x 325 mg) PO Q6H #0 tabs 05/13/23 bisacodyl 5 mg tablet,delayed 5 mg PO ONCE colonscopy bowel prep 08/09/24 release (Dulcolax (bisacodyl)) #4 tabs polyethylene glycol 3350 17 238 g PO ONCE colonoscopy prep 08/09/24 gram/dose oral powder #238 grams Allergies Allergy/AdvReac Type Severity Reaction Status Date / Time No Known Allergies Allergy Unverified 08/09/24 15:12 General Stated Complaint: OD/Poison DEMI: 3 Exam Narrative Exam Narrative: 1.Const: Well-nourished, Well-developed, appearing stated age 2.Eyes: PERRL, no conjunctival injection, and symmetrical lids. 3.ENT: Atraumatic external nose and ears. Dry MM. Neck: Symmetric, trachea midline, No thyromegaly. Patient demonstrates good movement of cervical neck. There is no nuchal rigidity, no nuchal tenderness. Patient is able to flex the neck without any difficulty or significant pain. Negative Kernig's and Brudzinski sign. 4.CVS: +S1/S2, Peripheral pulses 2+ and equal in all extremities. Brisk capillary refill in all extremities. 5.RESP: Unlabored respiratory effort. Clear to auscultation bilaterally. No wheezes rales or rhonchi 6.GI: Soft, Nontender/Nondistended, No hepatosplenomegaly. No guarding or rebound. Patient has defecated and urinated on himself. 7.MSK: Normocephalic/Atraumatic, Extremities w/o deformity or ttp No cyanosis or clubbing, Normal movement of all extremities 8.Skin: Warm, Dry. Cellulitic lesion over the periumbilical area with about 14 cm of redness for the diameter, and a central ulceration just inferior to the umbilicus. Secondary ulcerated lesion with cellulitis over the right anterior thigh. Mild induration without abscess. 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 Sensation grossly intact, no focal neurologic deficits. 10.Psych: (AAO) x3. Appropriate mood and affect Course Vital Signs Vital signs: Vital Signs Temperature 38.1 C H 08/18/24 22:45 Pulse 90 08/18/24 22:45 Respiratory Rate 30 H 08/18/24 22:45 Blood Pressure 127/93 H 08/18/24 22:45 Pulse Oximetry 99 08/18/24 22:45 Temperature 38.1 C H 08/18/24 22:45 Temperature Source Temporal Artery Scan 08/18/24 22:45 Pulse 90 08/18/24 22:45 Respiratory Rate 30 H 08/18/24 22:45 Blood Pressure 127/93 H 08/18/24 22:45 Blood Pressure Position Sitting 08/18/24 22:45 Pulse Oximetry 99 08/18/24 22:45 Oxygen Delivery Method Room Air 08/18/24 22:45 Oxygen Flow Rate 0 08/18/24 22:45 Lab/Test Results Lab/Test Results: 08/18/24 22:46 Blood Blood Culture - Pending 08/18/24 22:46 Blood Blood Culture - Pending Procedure EJ/Peripheral IV/Phlebotomy Date of Procedure: 08/19/24 Time of Procedure: 02:01 Indication: Other (ABG) Skin Cleansed in Sterile Fashion: Yes Laterality: Left Insertion Site: Wrist Size & Type: Other (ABG) Number ofAttempts(See previous attempts in note section): 1 Dressing: Other (Bandage applied postprocedure) Ultrasound: Not used Estimated Blood Loss: minimal Reason for Blood Draw by Provider: RN/lab unable Obtained Bloods via: other (Radial artery) Estimated cc's Blood Obtained: 3 Procedure Tolerated: No Complications and Patient tolerated well Procedure Outcome: Successful Medical Decision Making This is a 53-year-old with a past medical history of multiple sclerosis, anxiety and depression, previous alcohol abuse, who presents today for nitrous oxide overdose. Patient was found slumped over in his car having defecated and urinated on himself. 2 large 3.3 L bottles of flavored nitrous gas were noted next to him. 5 total containers were present in the vehicle but only 2 were used. EMS was called and the patient was brought to the ER. He was alert and responsive when EMS arrived. Slightly sleepy, but otherwise normal and behavior. Patient denies any homicidal or suicidal ideations. He denies any alcohol use. He denies any numbness or tingling that is new. No other complaints at this time. He denies any other drug or medication use. He states that he has not been taking his regular medications for some time. Exam demonstrates a fatigued appearing male, no acute distress. Vital signs demonstrate normal heart rate, stable blood pressure, however he is mildly tachypneic with an elevated temperature of 38.1. He denies any recent sore throat cough or neck pain. He shows no meningeal signs, lungs are clear. He denies any recent viral symptoms. Differential is broad but includes viral etiology. Pneumonia or aspiration pneumonia. Concern for potential bacteremia although he does deny any IV drug use. Malignant hyperthermia is unlikely given the use of nitrous and not another type of the polarizing agent or anesthetic. Neuroleptic malignant syndrome less likely given the lack of adherence to his regular medications. Infectious etiology is highest on the differential. Will rehydrate, check for concerning abnormalities, monitor closely and reassess. Patient looks notably dehydrated on exam. Will give IV fluid boluses. Patient meets sepsis criteria as well. 11:42 PM The patient was subsequently unclothed and secondary survey was performed. After feces were wiped off, it was noted that there was a Cellulitic lesion over the periumbilical area with about 14 cm of redness for the diameter, and a central ulceration just inferior to the umbilicus. Secondary ulcerated lesion with cellulitis over the right anterior thigh. Mild induration without abscess. I suspect this is the source of the fever. He denies injecting any drugs in these areas. We will start vancomycin and Zosyn for his sepsis, likely cellulitis. We will get imaging of the area out of concern for pancreatitis as the abdominal sign may be evidence of a [place]'s sign. He does have some mild epigastric achiness on palpation. 2:02 AM Laboratory workup has returned, no white count or bandemia. ABG shows mild alkalosis, oxygen levels appropriate. Electrolytes stable, renal function good aside for evidence of an elevated BUN suggestive of dehydration which correlates with his symptoms clinically. Thyroid function normal, lipase normal. Alcohol acetaminophen and salicylates normal. COVID flu and RSV negative. I suspect the source of the patient's fever is the anterior abdominal wall cellulitis. As well as the potential cellulitis and ulcer from the right anterior thigh. Patient was given vancomycin and Zosyn, chest CT and abdominal CT shows no evidence of intra-abdominal abscess, tracking process, abdominal wall abscess, or pancreatitis. But it does show evidence of questionable area of infiltrate or atelectasis in the inferior left lung base. Lipase is normal. Doxycycline was added for atypical coverage but will also function well for cellulitis treatment later. Patient does meet sepsis criteria. He has been given 1000 mcg of B12 out of the chronic huffing of the nitrous. Otherwise he does not show any focal deficits on exam. He does not show severe MS exacerbation symptoms at this time with normal strength in all extremities. His functional understanding of the current situation certainly is slightly limited, but he is otherwise A and O x 3. No focal deficits. I do feel that the patient would benefit from admission for continued IV antibiotics secondary to his sepsis from the lesions. Discussed the case with the hospitalist Dr. Marshall, he agrees with the assessment and plan. I have extensively reviewed the treatment plan with the patient. I have addressed all patient concerns at this time. I have also discussed the plan with the admitting physician and they agree with the current assessment and plan and have agreed to assume responsibility for the patient. All parties demonstrate verbal understanding and agreement with our assessment and plan at this time. The documentation in this chart was dictated using [employer] dictation software. Please excuse any dictation errors. FINDINGS: Lungs: No right lung infiltrate. Area of infiltrate and/or atelectasis within the inferior left lung base. Pleural spaces: No pleural fluid collection. No pneumothorax. Heart: No pericardial effusion. Lymph nodes: No enlarged lymph nodes. Vasculature: Normal caliber thoracic aorta without dissection or aneurysm. Bones/joints: No acute fracture. Old fractures of the right 6th, 7th, 8th, and 9th lateral ribs. Old fracture of the left 7th and 8th posterolateral ribs. Soft tissues: Unremarkable. IMPRESSION: 1. Area of infiltrate and/or atelectasis within the inferior left lung base. 2. No pleural fluid collection FINDINGS: Liver: Normal. No mass. Gallbladder and biliary ducts: Normal. No calcified stones. No ductal dilation. Pancreas: Normal. No ductal dilation. Spleen: Normal. No splenomegaly. Adrenal glands: Normal. No mass. Kidneys and ureters: No hydronephrosis. No calcified renal or ureteral stones. Two or three small hypodensities / possible small cysts the within the renal cortex of the kidneys. Stomach and bowel: Unremarkable. No obstruction. No mucosal thickening. Appendix: Normal appendix. Intraperitoneal space: No free air. No significant fluid collection. Vasculature: The abdominal aorta is normal in caliber without aneurysm or dissection. Lymph nodes: No enlarged lymph nodes. Urinary bladder: Unremarkable as visualized. Reproductive: Unremarkable as visualized. Bones/joints: No acute fracture. Old fracture of the right ischium. Soft tissues: Fat-containing umbilical hernia. Mild anterior subcutaneous edema in the region of the umbilicus. No discrete soft tissue abscess. IMPRESSION: 1. Mild anterior subcutaneous edema in the region of the umbilicus. No discrete soft tissue abscess. 2. No acute intra-abdominal or pelvic process. Thank you for allowing us to participate in the care of your patient. Dictated and Authenticated by: Fabián Tolliver MD 08/19/2024 12:54 AM Eastern Time ([place] & [place]) Quality:SDOH Health Related Social Needs: 2 Health related social needs food insecurity (Z59.41), problems finding work (Z56.9) Critical Care Time Critical Care Time Critical Care Time: Yes Total Critical Care Time: 45 Attestation: Upon my evaluation, this patient had a high probability of imminent or life- threatening deterioration, which required my direct attention, intervention, and personal management. I have personally provided 45 minutes of critical care time exclusive of time spent on separately billable procedures. Time includes review of laboratory data, radiology results, discussion with consultants, and monitoring for potential decompensation. Interventions were performed as documented. [facility] All Active Problems (Updated 08/19/24 @ 02:09 by Ruben Banda DO) Acute dehydration (Acute) Accidental overdose of nitrous oxide (Acute) Chronic ulcer of right thigh (Acute) Abdominal wall cellulitis (Acute) Sepsis (Acute) Multiple sclerosis exacerbation (Acute) Medical History (Updated 08/19/24 @ 02:09 by Ruben Banda DO) Anxiety and depression Alcohol abuse quit in 04/2024 Erectile dysfunction ADHD Left wrist fracture as a child Fracture of right tibia and fibula approx 2014, s/p ORIF Acetabulum fracture, right Multiple sclerosis Social History Smoking/Tobacco Use Status: Current every day Tobacco Type: e-cigarettes Smoking risk assessment performed?: Yes Alcohol Intake: current Alcohol Intake frequency: holidays/special occasions only Alcohol type: beer Drug use: Daily Substance use type: marijuana Housing: condominium Do you feel safe at home: Yes Do you feel safe in your relationship?: Yes
--- NOTE | 2024-08-18 23:35 | DI.RAD_ITS ---
Exam(s) XR PORTABLE CHEST AP EXAM: XR PORTABLE CHEST AP CLINICAL HISTORY: overdose TECHNIQUE: 2D digital imaging was performed. COMPARISON: No exams were available for comparison FINDINGS: LUNGS: Clear. No pleural abnormality seen. HEART: Normal size. AORTA: Normal diameter. BONES: Old left rib fractures. Soft tissues: Unremarkable. IMPRESSION: No acute findings. The preliminary [facility] report was reviewed. DATA REPOSITORY: RADIATION DOSE DELIVERED:
[2024-08-19] VITALS (27 sets, daily range): BP systolic 98–132; BP diastolic 65–83; PULSE 62–91; RESP 12–20; TEMP 36.2–36.9; O2SAT 95–99
[2024-08-19 00:10] LABS: BE -4 mmol/L (-2-3); HCO3 20 mmol/L (22-26); pCO2 28 mmHg (35-45); pH 7.46 (7.35-7.45); pO2 84 mmHg (80-105); sO2 97 % (95-98); tCO2 18 mmol/L (23-27)
[2024-08-19 00:11] LABS: Lactate 1.2 mmol/L (<or=2.0)
[2024-08-19 00:14] LABS: Abs Immature Grans 0.04 10^3/uL (0.0-0.06); Absolute Basophil Count 0.06 10^3/uL (0.0-0.2); Absolute Eosinophil Count 0.02 10^3/uL (0.0-0.7); Absolute Monocyte Count 0.69 10^3/uL (0.1-0.8); Absolute Neutrophil Count 5.83 10^3/uL (1.2-6.7); Basophils % 0.7 %; Eosinophils % 0.2 %; HCT 36.7 % (40.0-50.0); HGB 12.9 g/dL (13.5-17.5); Immature Grans % 0.5 %; Lymphocytes % 23.1 %; MCH 30.6 pg (27.0-33.0); MCHC 35.1 % (32.0-36.0); MCV 87 fL (80-95); MPV 9.4 fL (8.0-11.0); Neutrophils % 67.5 %; Platelet Count 294 10^3/uL (130-400); RBC 4.21 10^6/uL (4.36-5.78); RDW 13.5 % (11.8-14.1); RDW-SD 42.9 fL; WBC 8.64 10^3/uL (4.4-10.8)
--- NOTE | 2024-08-19 00:22 | DI.[facility]_ITS ---
PROCEDURE INFORMATION: Exam: XR Chest Exam date and time: 08/18/2024 11:35 PM Age: 53 years old Clinical indication: Overdose TECHNIQUE: Imaging protocol: Radiologic exam of the chest. Views: 1 view. COMPARISON: MR THORACIC SPINE WO/W 07/03/2024 11:20 AM FINDINGS: Lungs: No alveolar infiltrate. Pleural spaces: No pleural fluid collection. No pneumothorax. Heart/Mediastinum: Normal heart size. Bones/joints: Old fractures of the left 7th and 8th posterior ribs. IMPRESSION: No active pulmonary disease. Dictated and Authenticated by: Fabián Tolliver MD. Orderin Veronika Miranda MD
[2024-08-19 00:24] LABS: Site Left Radial
[2024-08-19 00:27] LABS: Lipase 23 U/L (<78)
[2024-08-19 00:30] LABS: Salicylate < 2.8 mg/dL (<2.8)
[2024-08-19] MEDS: PIPERACILLIN/TAZO 4.5 GM in Normal Saline 100 ML IVPB (00:31)
[2024-08-19] MEDS: Cyanocobalamin 1000 MCG/ML VIAL IM/SC (00:31)
[2024-08-19] MEDS: Lactated Ringers 1,000 ML 1000 ML IV (00:31)
[2024-08-19] MEDS: Acetaminophen 500 MG TAB 1000 MG PO (00:31)
[2024-08-19 00:32] LABS: Acetaminophen < 2 ug/mL (10-30)
[2024-08-19] MEDS: Omnipaque 350 MG/ML 100 ML BTL IJ (00:32)
[2024-08-19] MEDS: Normal Saline - Diluent 50 ML VIAL IJ (00:32)
--- NOTE | 2024-08-19 00:33 | DI.CT_ITS ---
Exam(s) CT CHEST/ABD/PEL W EXAM: CT CHEST/ABD/PEL W CLINICAL HISTORY: overdose, epigastric pain, periumbilic ulcerations. TECHNIQUE: Imaging Protocol: Axial computed tomography images with coronal and sagittal reformatted images were created and reviewed. Computer aided detection (CAD) was utilized. CONTRAST MATERIAL: Intravenous: Omnipaque 350 Contrast volume:100 ml Oral: no COMPARISON: CT CT [facility] WO from 05/11/2023 FINDINGS: CHEST: Pulmonary parenchyma: Atelectasis inferior lingula. No dominant measurable mass. Mild emphysematou s changes in the upper lobes. Mild upper lobe scarring. Tracheobronchial tree: No bronchiectasis. No mucous plugging.No bronchial wall thickening. Pleura: No effusion or pneumothorax. Mediastinum: Within normal limits. Pulmonary arteries: No visible emboli. Cardiovascular: The heart is mildly enlarged. Mild coronary artery calcifications. No pericardial e ffusion. Thoracic aorta non-dilated. Bones: Unremarkable for age. No lytic or blastic lesions.No acute rib or spinal compression fractur es. Old bilateral rib fractures. Soft tissues: Unremarkable. ABDOMEN and PELVIS: Liver: Normal density. No suspicious mass. Gallbladder and biliary tract: No evidence of stones or wall thickening. No biliary dilatation. Pancreas: Normal density, no abnormal calcifications or inflammatory process. Spleen: Normal. Kidneys: Normal size, contour and axis. No radiodense stones. No obstructive uropathy. No suspicious masses seen. Adrenal glands: No masses seen. Aorta: Abdominal portion non-dilated. Lymph nodes: Within normal limits. Soft tissues: Small fat containing umbilical hernia. Mild edema in the subcutaneous fat of the anter ior abdominal wall. Bladder: Unremarkable. Bowel: No obstruction or bowel wall thickening. Peritoneal cavity: No ascites. No focal collection. No mesenteric inflammatory response. No free ai r. Bones: No acute fractures. Old right ischial fracture. Reproductive organs: Unremarkable for age. IMPRESSION: No acute abnormality in the chest, abdomen or pelvis. The preliminary [facility] report was reviewed. RADIATION DOSE DELIVERED: Total DLP DATA REPOSITORY: All CT scans at this facility are submitted to the National Radiology Data Registry (NRDR) Dose Index Registry (DIR) with the [employer] (ACR). RADIATION OPTIMIZATION: All CT scans at this facility use at least one of these dose optimization te chniques: automated exposure control; mA and/or kV adjustment per patient size (includes targeted exa ms where dose is matched to clinical indication); or iterative reconstruction.
[2024-08-19 00:40] LABS: ALT 16 U/L (16-63); AST 15 U/L (15-37); Albumin 4.2 g/dL (3.4-5.0); Alkaline Phosphatase 99 U/L (46-116); Anion Gap 12.6 mmol/L (3-11); BUN 28 mg/dL (7-18); Bilirubin, Total 0.8 mg/dL (0.2-1.0); CO2 24.4 mmol/L (21.0-32.0); CREATININE 1.1 mg/dL (0.70-1.30); Calcium 9.1 mg/dL (8.5-10.1); Chloride 103 mmol/L (98-107); Estimated GFR 80.77 (mL/min/1.73m2); Glucose 103 mg/dL (74-106); Potassium 3.2 mmol/L (3.5-5.1); Sodium 140 mmol/L (136-145); TSH (W/Ref FT4) 2.82 uIU/mL (0.36-3.74); Total Protein 6.9 g/dL (6.4-8.2)
[2024-08-19 00:45] LABS: Procalcitonin < 0.10 ng/mL
[2024-08-19] MEDS: VANCOMYCIN 1,500 MG in Normal Saline 500 ML 333.3333 MG IVPB (00:46)
[2024-08-19 00:50] LABS: ETHANOL BLOOD < 3.0 mg/dL (<10)
[2024-08-19 00:54] LABS: COVID-19 PCR Negative (Negative); Influenza A PCR Negative (Negative); Influenza B PCR Negative (Negative); RSV PCR Negative (Negative)
--- NOTE | 2024-08-19 00:55 | DI.[facility]_ITS ---
PROCEDURE INFORMATION: Exam: CT Chest With Contrast; Diagnostic Exam date and time: 08/19/2024 12:00 AM Age: 53 years old Clinical indication: Overdose, periumbilic ulcerations; Abdominal pain; Epigastric pain E TECHNIQUE: Imaging protocol: Diagnostic computed tomography of the chest with contrast. 3D rendering (Not supervised by radiologist): MIP and/or 3D reconstructed images were created by the technologist. Radiation optimization: All CT scans at this facility use at least one of these dose optimization techniques: automated exposure control; mA and/or kV adjustment per patient size (includes targeted exams where dose is matched to clinical indication); or iterative reconstruction. Contrast material: [id number]; Contrast volume: 100 ml; Contrast route: INTRAVENOUS (IV); COMPARISON: CR XR PORTABLE CHEST AP 08/18/2024 11:35 PM FINDINGS: Lungs: No right lung infiltrate. Area of infiltrate and/or atelectasis within the inferior left lung base. Pleural spaces: No pleural fluid collection. No pneumothorax. Heart: No pericardial effusion. Lymph nodes: No enlarged lymph nodes. Vasculature: Normal caliber thoracic aorta without dissection or aneurysm. Bones/joints: No acute fracture. Old fractures of the right 6th, 7th, 8th, and 9th lateral ribs. Old fracture of the left 7th and 8th posterolateral ribs. Soft tissues: Unremarkable. IMPRESSION: 1. Area of infiltrate and/or atelectasis within the inferior left lung base. 2. No pleural fluid collection. PROCEDURE INFORMATION: Exam: CT Abdomen And Pelvis With Contrast Exam date and time: 08/19/2024 12:00 AM Age: 53 years old Clinical indication: Overdose, periumbilic ulcerations; Abdominal pain; Epigastric pain TECHNIQUE: Imaging protocol: Computed tomography of the abdomen and pelvis with contrast. 3D rendering (Not supervised by radiologist): MIP and/or 3D reconstructed images were created by the technologist. Radiation optimization: All CT scans at this facility use at least one of these dose optimization techniques: automated exposure control; mA and/or kV adjustment per patient size (includes targeted exams where dose is matched to clinical indication); or iterative reconstruction. Contrast material: [id number]; Contrast volume: 100 ml; Contrast route: INTRAVENOUS (IV); COMPARISON: CT PEL[facility] WO 05/11/2023 11:27 AM FINDINGS: Liver: Normal. No mass. Gallbladder and biliary ducts: Normal. No calcified stones. No ductal dilation. Pancreas: Normal. No ductal dilation. Spleen: Normal. No splenomegaly. Adrenal glands: Normal. No mass. Kidneys and ureters: No hydronephrosis. No calcified renal or ureteral stones. Two or three small hypodensities / possible small cysts the within the renal cortex of the kidneys. Stomach and bowel: Unremarkable. No obstruction. No mucosal thickening. Appendix: Normal appendix. Intraperitoneal space: No free air. No significant fluid collection. Vasculature: The abdominal aorta is normal in caliber without aneurysm or dissection. Lymph nodes: No enlarged lymph nodes. Urinary bladder: Unremarkable as visualized. Reproductive: Unremarkable as visualized. Bones/joints: No acute fracture. Old fracture of the right ischium. Soft tissues: Fat-containing umbilical hernia. Mild anterior subcutaneous edema in the region of the umbilicus. No discrete soft tissue abscess. IMPRESSION: 1. Mild anterior subcutaneous edema in the region of the umbilicus. No discrete soft tissue abscess. 2. No acute intra-abdominal or pelvic process. Dictated and Authenticated by: Fabián Tolliver MD. Orderin Veronika Miranda MD
[2024-08-19 00:57] LABS: Source Nasopharynx
[2024-08-19] MEDS: DOXYCYCLINE 100 MG in Normal Saline 100 ML IVPB (02:53)
[2024-08-19] MEDS: ACETAMINOPHEN 1,000 MG/100 ML BAG 100 MG (03:53)
[2024-08-19] MEDS: QUEtiapine 50 MG TAB PO ×3 (03:56→20:42)
[2024-08-19] MEDS: Ketorolac 15 MG/ML VIAL IVP (03:56)
--- NOTE | 2024-08-19 04:41 | W.PM.HP.N ---
Date of service: 08/19/24 Time of Service: 04:41 Assessment and Plan Assessment and plan (1) Accidental overdose of nitrous oxide: Start date: 08/19/24 Status: Acute Assessment and plan: This is a 53-year-old gentleman who has history of substance use disorder having been prescribed narcotics and benzodiazepines in the past by the PMS reviewed but nothing recently. He also has previous alcohol abuse. He was found in his car having passed his bowels and bladder with incontinence after huffing nitrous oxide. He appears to be at baseline mentation presently with his MS causing some odd affect. He also has depression with anxiety chronically. He appears to have no significant side effects to his accidental overdose but will be observed with IV hydration and treatment of his sources of fever with at least a left lower lobe infiltrate and possible cellulitis over his abdomen and right thigh. These areas appear to be bucio and may be secondary to his decreased sensation with MS. He is a full code. (2) Abdominal wall cellulitis: Start date: 08/19/24 Status: Acute Assessment and plan: IV cefepime and vancomycin with pending blood cultures and trending lab as well as fever. Urinalysis needs to be performed as well and this may be another source of infection. Converted to oral therapy once patient improves and cultures are obtained. (3) Cellulitis of right thigh: Start date: 08/19/24 Status: Acute Assessment and plan: IV antibiotics as above. (4) Left lower lobe pneumonia: Start date: 08/19/24 Status: Acute Assessment and plan: IV antibiotics as above plus doxycycline for atypical pneumonia. (5) Hypokalemia: Status: Chronic Assessment and plan: Oral repletion and trend labs. The patient is not on diuretics and this may be nutritional deficit. (6) Anxiety and depression: Assessment and plan: Continue outpatient medical therapy. (7) Substance use disorder: Status: Chronic Assessment and plan: Urine drug screen and address any misuse if positive. Patient denies any recent use of the nitrous oxide. VPMS was reviewed and did reveal previous prescriptions for narcotics and benzodiazepines but nothing recently. (8) Multiple sclerosis: Assessment and plan: On ocrelizumab injections every 6 months. Compliance may be an issue. History of Present Illness History of Present Illness Chief Complaint: Found in car after urinating and defecating on self using nitrous oxide. Narrative: This is a 53-year-old male patient who has a known history of substance use disorder with multiple sclerosis on injections, depression with anxiety on treatment, previous alcohol use not presently drinking and previous substance use disorder been prescribed various opioids and benzodiazepines in the past for his psychiatric illnesses who was found slumped in his car having defecated and urinated on himself with EMS called for his assistance. At the time EMS picked him up he was alert and talking denied any suicidal ideation but was found to have used cans of nitrous oxide in his car with some full cans. He denies any chills, cough or recent onset of symptoms but did have a fever when he reported to the ED for evaluation. He did have an ulceration of his right thigh and abdomen with swelling and erythema these appear to be circular bucio. He does not know how they occurred. Evaluation in the ED for his fever did reveal a left lower lobe infiltrate by imaging with no elevation of WBC and in fact leukopenia, nor hypoxemia but slight tachypnea. He denies any significant pain over his wounds. CT of the abdomen revealed no abscess seen over his periumbilical cellulitis. He was found to have hypokalemia and was clinically dehydrated. He admits to not taking his medications as prescribed and does not have any new loss of sensation though he does have some associated sensory deficits with his MS. He was initiated on broad-spectrum antibiotics which will be continued with pending blood cultures and follow-up on urinalysis. He was admitted for IV hydration and IV antibiotic therapy as well as follow-up on cultures as mentioned. Urinalysis was pending and ARMANDO was pending. He is a full code. Review of Systems Narrative: 13 point review of systems otherwise unrevealing or stable. PFSH All Active Problems (Updated 08/19/24 @ 04:53 by David Marshall) Substance use disorder (Chronic) Hypokalemia (Chronic) Cellulitis of right thigh (Acute) Left lower lobe pneumonia (Acute) Acute dehydration (Acute) Accidental overdose of nitrous oxide (Acute) Chronic ulcer of right thigh (Acute) Abdominal wall cellulitis (Acute) Sepsis (Acute) Multiple sclerosis exacerbation (Acute) Medical History Anxiety and depression Alcohol abuse quit in 04/2024 Erectile dysfunction ADHD Left wrist fracture as a child Fracture of right tibia and fibula approx 2014, s/p ORIF Acetabulum fracture, right Multiple sclerosis Social History Smoking/Tobacco Use Status: Current every day Tobacco Type: e-cigarettes Smoking risk assessment performed?: Yes Alcohol Intake: current Alcohol Intake frequency: holidays/special occasions only Alcohol type: beer Drug use: Daily Substance use type: marijuana Housing: condominium Do you feel safe at home: Yes Do you feel safe in your relationship?: Yes Meds Allergies and Home Medications Allergies Allergy/AdvReac Type Severity Reaction Status Date / Time No Known Allergies Allergy Unverified 08/09/24 15:12 Home Medications ?Medication ?Instructions ?Recorded ?Confirmed ?Type gabapentin 300 mg capsule 300 mg PO TID 05/11/23 08/09/24 History acetaminophen 325 mg tablet 650 mg (2 x 325 mg) PO Q6H #0 tabs 05/13/23 08/09/24 Rx escitalopram oxalate 10 mg tablet 10 mg PO DAILY 07/02/24 08/09/24 History folic acid 1 mg tablet 1 mg PO DAILY 07/02/24 08/09/24 History quetiapine 50 mg tablet 50 mg PO BID 07/02/24 08/09/24 History sildenafil (pulm.hypertension) 20 20 mg PO DAILY PRN 07/02/24 08/09/24 History mg tablet ibuprofen 800 mg tablet 800 mg PO DAILY PRN 07/03/24 08/09/24 History multivitamin 1 tab PO DAILY 07/24/24 08/09/24 History ocrelizumab 30 mg/mL intravenous 300 mg IV [id number] 07/24/24 08/09/24 History solution (Ocrevus) bisacodyl 5 mg tablet,delayed 5 mg PO ONCE colonscopy bowel prep 08/09/24 08/09/24 Rx release (Dulcolax (bisacodyl)) #4 tabs ocrelizumab 30 mg/mL intravenous 600 mg IV [id number] 08/09/24 08/09/24 History solution (Ocrevus) polyethylene glycol 3350 17 238 g PO ONCE colonoscopy prep 08/09/24 08/09/24 Rx gram/dose oral powder #238 grams Exam Narrative Exam Narrative: General: Patient appears younger than stated age, mildly obese especially over the abdomen, alert and oriented x 3 and in no acute distress. He is slightly euphoric. HEENT: Normocephalic, eyes with pupils equal and react to light symmetrically, extraocular movement intact and sclera anicteric. Oropharynx with dry mucosa and good dentition. Neck: Supple without JVD. Back: Normal posture without CVA tenderness. Lungs: Fair aeration with slightly decreased aeration over the base but no focalizing rales or rhonchi. No increased expiratory phase or expiratory wheeze. Heart: Regular rate and rhythm with no appreciable murmurs or gallops. Abdomen: Obese contour, soft with no focalizing tenderness or guarding and no rebound. No palpable hepatosplenomegaly. There is a large erythematous slightly bruised area over the inferior aspect of his periumbilical area with ulceration which is dry over the center. This is not indurated and not tender to palpation. Is not fluctuant. Bowel sounds are positive in all quadrants. Genitalia/rectal: Exam deferred. Extremities: Without clubbing, cyanosis or grossly pitting edema. Similar large erythematous dry ulcer over the anterior right thigh with less old bruising and no drainage. Good capillary refill. Skin: Ulcerations as mentioned otherwise normal color, warm and dry. Neuro: Cranial nerve II through XII are grossly intact, no focalized motor deficits and no tremor. Sensory testing was not performed the patient does admit to some sensory deficits over his dermatomes. Psych: Slightly euphoric affect and appropriate for situation, normal mood. No abnormal thought processes. Remote and recent memory grossly intact. Results Imaging Imaging Studies: Exam: CT Chest With Contrast; Diagnostic Exam date and time: 08/19/2024 12:00 AM Age: 53 years old Clinical indication: Overdose, periumbilic ulcerations; Abdominal pain; Epigastric pain E COMPARISON: CR XR PORTABLE CHEST AP 08/18/2024 11:35 PM FINDINGS: Lungs: No right lung infiltrate. Area of infiltrate and/or atelectasis within the inferior left lung base. Pleural spaces: No pleural fluid collection. No pneumothorax. Heart: No pericardial effusion. Lymph nodes: No enlarged lymph nodes. Vasculature: Normal caliber thoracic aorta without dissection or aneurysm. Bones/joints: No acute fracture. Old fractures of the right 6th, 7th, 8th, and 9th lateral ribs. Old fracture of the left 7th and 8th posterolateral ribs. Soft tissues: Unremarkable. IMPRESSION: 1. Area of infiltrate and/or atelectasis within the inferior left lung base. 2. No pleural fluid collection. PROCEDURE INFORMATION: Exam: CT Abdomen And Pelvis With Contrast Exam date and time: 08/19/2024 12:00 AM Age: 53 years old Clinical indication: Overdose, periumbilic ulcerations; Abdominal pain; Epigastric pain COMPARISON: CT PELVIC WO 05/11/2023 11:27 AM FINDINGS: Liver: Normal. No mass. Gallbladder and biliary ducts: Normal. No calcified stones. No ductal dilation. Pancreas: Normal. No ductal dilation. Spleen: Normal. No splenomegaly. Adrenal glands: Normal. No mass. Kidneys and ureters: No hydronephrosis. No calcified renal or ureteral stones. Two or three small hypodensities / possible small cysts the within the renal cortex of the kidneys. Stomach and bowel: Unremarkable. No obstruction. No mucosal thickening. Appendix: Normal appendix. Intraperitoneal space: No free air. No significant fluid collection. Vasculature: The abdominal aorta is normal in caliber without aneurysm or dissection. Lymph nodes: No enlarged lymph nodes. Urinary bladder: Unremarkable as visualized. Reproductive: Unremarkable as visualized. Bones/joints: No acute fracture. Old fracture of the right ischium. Soft tissues: Fat-containing umbilical hernia. Mild anterior subcutaneous edema in the region of the umbilicus. No discrete soft tissue abscess. IMPRESSION: 1. Mild anterior subcutaneous edema in the region of the umbilicus. No discrete soft tissue abscess. 2. No acute intra-abdominal or pelvic process. Labs 08/19/24 00:00 08/19/24 00:00 Labs: Laboratory Results - last 24 hr 08/19/24 08/19/24 00:00 00:07 WBC 8.64 RBC 4.21 L Hgb 12.9 L Hct 36.7 L MCV 87 MCH 30.6 MCHC 35.1 RDW 13.5 Plt Count 294 MPV 9.4 Immature Gran % 0.5 Neutrophils % 67.5 Lymphocytes % 23.1 Monocytes % 8.0 Eosinophils % 0.2 Basophils % 0.7 Nucleated RBC % 0.0 Absolute Neutrophils 5.83 Absolute Lymphocytes 2.00 Absolute Monocytes 0.69 Absolute Eosinophils 0.02 Absolute Basophils 0.06 ABG Sample Site Left Radial ABG pH 7.46 H ABG pCO2 28 L ABG pO2 84 ABG HCO3 20 L ABG Total CO2 18 L ABG O2 Saturation 97 ABG Base Excess -4 L VBG Lactate 1.2 Sodium 140 Potassium 3.2 L Chloride 103 Carbon Dioxide 24.4 Anion Gap 12.6 H BUN 28 H Creatinine 1.1 Est GFR (CKD-EPI 2020) 80.77 Glucose 103 Calcium 9.1 Total Bilirubin 0.8 AST 15 ALT 16 Alkaline Phosphatase 99 Total Protein 6.9 Albumin 4.2 Lipase 23 Procalcitonin < 0.10 TSH 2.82 Salicylates < 2.8 Acetaminophen < 2 Ethyl Alcohol < 3.0 COVID-19 Source Nasopharynx SARS-CoV-2 (PCR) Negative Influenza Type A (PCR) Negative Influenza Type B (PCR) Negative RSV (PCR) Negative Last Vital Signs Temp 38.1 C H 08/18/24 22:45 Pulse 77 08/19/24 03:11 Resp 15 08/19/24 03:27 BP 117/65 08/19/24 03:00 Pulse Ox 97 08/19/24 03:11 Time Spent Time spent with Patient: >75 minutes Time was spent: preparing to see the patient(eg.review tests), obtaining and/or reviewing separately otained hiistory, ordering medications,tests, procedures, indepentently interpreting results, counseling the patient and care coordination
--- NOTE | 2024-08-19 06:21 | W.PC.ACHO ---
Registration Status: Primary Language: Preferred Language: ED Information & Data Chief Complaint OD/Poison 08/18/24 23:08 Triage Note PT reports doing 2 cans of 08/18/24 22:45 nitrous earlier tonight. Found slumped in his vehicle in a parking lot. PT is alert and oriented at time of arrival. Medical / Surgical History (Last Reviewed 08/19/24 @ 04:41 by David Marshall) Anxiety and depression Alcohol abuse Erectile dysfunction ADHD Left wrist fracture Fracture of right tibia and fibula Acetabulum fracture, right Multiple sclerosis Most Recent Vital Signs Temperature 38.1 C H 08/18/24 22:45 Temperature Source Temporal Artery Scan 08/18/24 22:45 Pulse 77 08/19/24 03:11 Respiratory Rate 15 08/19/24 06:18 Respiratory Effort Normal 08/19/24 03:27 Respiratory Depth Normal 08/19/24 03:27 Respiratory Pattern Normal 08/19/24 03:27 Blood Pressure 117/65 08/19/24 03:00 Blood Pressure Mean 77 08/19/24 03:00 Blood Pressure Position Sitting 08/18/24 22:45 Pulse Oximetry 97 08/19/24 03:11 Oxygen Delivery Method Room Air 08/18/24 22:45 Oxygen Flow Rate 0 08/18/24 22:45 Allergies No Known Allergies Allergy (Unverified 08/09/24 15:12) Active Medications Generic Name Dose Route Start Last Admin Trade Name Freq PRN Reason Stop Dose Admin Iohexol 100 ml 08/19/24 00:45 08/19/24 00:32 Omnipaque 350 Mg/Ml 100 Ml Btl IJ 09/18/24 23:59 100 ml DIRECTED DARIUS Administration Sodium Chloride 50 ml 08/19/24 00:45 08/19/24 00:32 Normal Saline - Diluent 50 Ml Vial IJ 50 ml .FOR DI USE DARIUS Administration IV IV Catheter Type [Left Saline Lock Antecubital] IV Catheter Gauge [Left 18 Antecubital] Diagnostics 08/19/24 08/19/24 Range/Units 00:07 00:00 WBC 8.64 (4.4-10.8) 10^3/uL RBC 4.21 L (4.36-5.78) 10^6/uL Hgb 12.9 L (13.5-17.5) g/dL Hct 36.7 L (40.0-50.0) % MCV 87 (80-95) fL MCH 30.6 (27.0-33.0) pg MCHC 35.1 (32.0-36.0) % RDW 13.5 (11.8-14.1) % Plt Count 294 (130-400) 10^3/uL MPV 9.4 (8.0-11.0) fL Immature Gran % 0.5 % Neutrophils % 67.5 % Lymphocytes % 23.1 % Monocytes % 8.0 % Eosinophils % 0.2 % Basophils % 0.7 % Nucleated RBC % 0.0 (0.0-0.3) % Absolute Neutrophils 5.83 (1.2-6.7) 10^3/uL Absolute Lymphocytes 2.00 (1.2-3.4) 10^3/uL Absolute Monocytes 0.69 (0.1-0.8) 10^3/uL Absolute Eosinophils 0.02 (0.0-0.7) 10^3/uL Absolute Basophils 0.06 (0.0-0.2) 10^3/uL ABG Sample Site Left Radial ABG pH 7.46 H (7.35-7.45) ABG pCO2 28 L (35-45) mmHg ABG pO2 84 (80-105) mmHg ABG HCO3 20 L (22-26) mmol/L ABG Total CO2 18 L (23-27) mmol/L ABG O2 Saturation 97 (95-98) % ABG Base Excess -4 L (-2-3) mmol/L VBG Lactate 1.2 (<or=2.0) mmol/L Sodium 140 (136-145) mmol/L Potassium 3.2 L (3.5-5.1) mmol/L Chloride 103 (98-107) mmol/L Carbon Dioxide 24.4 (21.0-32.0) mmol/L Anion Gap 12.6 H (3-11) mmol/L BUN 28 H (7-18) mg/dL Creatinine 1.1 (0.70-1.30) mg/dL Est GFR (CKD-EPI 2020) 80.77 (mL/min/1.73m2) Glucose 103 (74-106) mg/dL Calcium 9.1 (8.5-10.1) mg/dL Total Bilirubin 0.8 (0.2-1.0) mg/dL AST 15 (15-37) U/L ALT 16 (16-63) U/L Alkaline Phosphatase 99 (46-116) U/L Total Protein 6.9 (6.4-8.2) g/dL Albumin 4.2 (3.4-5.0) g/dL Lipase 23 (<78) U/L Procalcitonin < 0.10 ng/mL TSH 2.82 (0.36-3.74) uIU/mL Salicylates < 2.8 (<2.8) mg/dL Acetaminophen < 2 (10-30) ug/mL Ethyl Alcohol < 3.0 (<10) mg/dL COVID-19 Source Nasopharynx SARS-CoV-2 (PCR) Negative (Negative) Influenza Type A (PCR) Negative (Negative) Influenza Type B (PCR) Negative (Negative) RSV (PCR) Negative (Negative) 08/19/24 01:30 Blood Culture - Pending Blood 08/19/24 00:00 Blood Culture - Pending Blood [id number] Documentation Fingerstick Glucose Start: 08/18/24 22:53 Freq: Status: Active Protocol: Activity Type Activity Date Activity User E-sign Co-sign Detail Recorded Client Recorded Date Recorded By Document 08/18/24 22:52 TRINH LOWRY(3) [id number] 08/18/24 22:53 TRINH LOWRY(4) Intake and Output - 24 Hour Total 08/18/24 22:37 thru 08/19/24 03:54 Intake Total 1600 Balance 1600 Weight 72.575 kg Intake: IV 1600 Falls Risk Assessment History of Falls No History 08/18/24 22:48 Contributing Factors No Factors 08/18/24 22:48 Ambulatory Aids Independent 08/18/24 22:48 Tubes/Lines None 08/18/24 22:48 Gait Evaluation No gait disturbance 08/18/24 22:48 Cognition No cognitive impairment 08/18/24 22:48 Fall Total Score 0 08/18/24 22:48 Level of Risk Standard/Low Risk 08/18/24 22:48 Problems (Last Reviewed 08/19/24 @ 04:41 by David Marshall) Substance use disorder (Chronic) Hypokalemia (Chronic) Cellulitis of right thigh (Acute) Left lower lobe pneumonia (Acute) Accidental overdose of nitrous oxide (Acute) Abdominal wall cellulitis (Acute) v v v v v v v v v Sending and/or Receiving Nurses: Please use comment section below to note any information pertinent to the patient hand-off not included above. Information / Comments:[place], 53 yo M admit through ED for OD on NOS. Slumped, sleepy, comfused repetitive, febrile in ED. Got x3 ABX therpy, 2g Tylenol, Red umbilicus and rt upper thigh. Admit to med surg 08/19/24 rm 225. Report received from: Ghulam Soap Tender, ED, @ [phone]
[2024-08-19] MEDS: Enoxaparin 40 MG/0.4 ML SYR SC (09:12)
[2024-08-19] MEDS: Normal Saline Flush 10 ML SYR IVP ×4 (09:12→22:30)
[2024-08-19] MEDS: CEFEPIME 2 GM in Normal Saline 100 ML IVPB ×2 (09:12→20:40)
[2024-08-19] MEDS: Escitalopram 10 MG TAB PO (09:13)
[2024-08-19] MEDS: Gabapentin 300 MG CAP PO ×3 (09:13→20:39)
[2024-08-19] MEDS: Potassium Chloride 20 MEQ TABCR 40 MEQ PO (09:13)
[2024-08-19] MEDS: Multivitamin TAB 1 TAB PO (09:13)
[2024-08-19] MEDS: Folic Acid 1 MG TAB PO (09:13)
--- NOTE | 2024-08-19 10:33 | NUR.NOTE ---
Accessed chart to reconcile orders for EKG with EKG?s in [facility]. Nursing Note:
--- NOTE | 2024-08-19 12:32 | PDOC.CMIN ---
Date of service: 08/19/24 Time of Service: 12:32 Care Management Initial Assmt Initial Assessment Reason for Hospitalization: Accidental overdose nitrous oxide, cellulitis Functional Status/Living Situation Patient Presentation: Tulio was sitting up in bed when CM met with him. He reported that he would like to return home, and stated that he doesn't understand why he cannot be discharged. Per report, Tulio is receiving antibiotics to treat cellulitis, and will continue to be monitored. He stated that he lives with his S/O, Aspen, and is independent, yet not employed. He reported that he does not need any further support in the community, at this time. CM reviewed his right to leave AMA, as he is not being held here against his will. He asked if he could order food from the kitchen, as he slept trough lunch. CM relayed this information to nursing. CM will continue to follow. Town of Residence: [facility] Resides with: Spouse (S/OAspen) Significant Other/Family: Local Employment Status: Unemployed Instrumental Activities of Daily Living (ADLs): Independent Medications Medication Management: No Issues/Barriers identified Advance Directives Advance Directives: Do you have an Advance Directive: N 05/11/23 09:00 AD On File at [facility]: N 05/11/23 09:00 Date Asked 08/18/24 08/18/24 22:46 AD Date Reviewed COLST On File at [facility] COLST Date Scanned Code Status Resuscitation Status Full Code Insurance Coverage/Financial Issues Insurance: / Care Team Visit Care Team Role Provider Type Valerie Crespo APRN MD [facility] STAFF PHYSICIAN Ghulam Garcia Primary Care Provider [employer] Ruben Banda DO Emergency Provider [facility] STAFF PHYSICIAN David Marshall Admit Provider NON-[facility] STAFF PHYSICIAN Attending Provider Discharge Potential Discharge Needs: PCP F/U Appt Anticipated Barriers to Discharge: None Identified Patient/Family Education Needs: Review discharge instructions, discuss Ask Me Three Transportation: Private vehicle Plan: Anticipate Tulio will return home once medically cleared. He will transport via private vehicle. He will follow up with his PCP and discharge plan of care. CM will continue to follow. Social Determinants of Health Screening Will the Patient Participate in the Screening?: Declined to provide PFSH All Active Problems (Updated 08/19/24 @ 04:53 by David Marshall) Substance use disorder (Chronic) Hypokalemia (Chronic) Cellulitis of right thigh (Acute) Left lower lobe pneumonia (Acute) Acute dehydration (Acute) Accidental overdose of nitrous oxide (Acute) Chronic ulcer of right thigh (Acute) Abdominal wall cellulitis (Acute) Sepsis (Acute) Multiple sclerosis exacerbation (Acute) Medical History Anxiety and depression Alcohol abuse quit in 04/2024 Erectile dysfunction ADHD Left wrist fracture as a child Fracture of right tibia and fibula approx 2014, s/p ORIF Acetabulum fracture, right Multiple sclerosis Social History Smoking/Tobacco Use Status: Current every day Tobacco Type: e-cigarettes Smoking risk assessment performed?: Yes Alcohol Intake: current Alcohol Intake frequency: holidays/special occasions only Alcohol type: beer Drug use: Daily Substance use type: marijuana Housing: condominium Do you feel safe at home: Yes Do you feel safe in your relationship?: Yes
[2024-08-19 12:34] LABS: Vancomycin, Random 12.5 ug/mL
--- NOTE | 2024-08-19 13:19 | PGE_ITS ---
Date of Service Date of service: 08/19/24 Time of Service: 13:19 Assessment and Plan Assessment and plan (1) Accidental overdose of nitrous oxide: Start date: 08/19/24 Status: Acute Assessment and plan: Found in his car having passed his bowels and bladder with incontinence after huffing nitrous oxide. Incontinent of stool and urine at this time, denied vomiting. History of MS causing some odd affect. Continue IV hydration and treatment of his sources of fever with at least a left lower lobe infiltrate and possible cellulitis over his abdomen and right thigh. Patient denied febrile. These areas appear to be bucio and may be secondary to his decreased sensation with MS. (2) Abdominal wall cellulitis: Start date: 08/19/24 Status: Acute Assessment and plan: Continue IV cefepime and vancomycin with pending blood cultures and trending lab as well as fever. Urinalysis was negative If the patient insists on leaving AMA later today considering Bactrim double strength to 12 to be sent to [place] [employer] [facility] (3) Cellulitis of right thigh: Start date: 08/19/24 Status: Acute Assessment and plan: as above. (4) Left lower lobe pneumonia: Start date: 08/19/24 Status: Acute Assessment and plan: As above plus doxycycline for atypical pneumonia. MRSA nares ordered since we are treating pneumonia also (5) Hypokalemia: Status: Chronic Assessment and plan: Oral repletion and trend labs. The patient is not on diuretics and this may be nutritional deficit. BMP in the morning (6) Anxiety and depression: Assessment and plan: Continue outpatient medical therapy. (7) Substance use disorder: Status: Chronic Assessment and plan: Urine drug screen only positive for THC . Patient denies any recent use of the nitrous oxide. VPMS was reviewed and did reveal previous prescriptions for narcotics and benzodiazepines but nothing recently. (8) Multiple sclerosis: Assessment and plan: On ocrelizumab injections every 6 months. Compliance may be an issue. Discussed with Dr. Rae Subjective Subjective Patient reports: no new complaints, tolerating liquids well, tolerating a regular diet, voiding w/o difficulty and other (Wanted to give again medical advice to convince to stay overnight until blood cultures have resulted); denies diarrhea, nausea, vomiting, shortness of breath (Positive cough) or fever Exam Narrative Exam Narrative: 51-year-old male patient in no acute distress, sleepy but arousable this morning more awake this afternoon, no neurologic focal deficit, moves all 4 extremities, clear breath sounds with diminished left lower lobe, S1-S2 no murmur, positive radial pulses no edema abdomen is nondistended soft nontender with periumbilical skin blisters, abrasion and erythema, no CVA tenderness, appears anxious and restless with limited thought process Objective Last Vital Signs Temp 36.2 C L 08/19/24 11:28 Pulse 67 08/19/24 11:28 Resp 12 08/19/24 11:28 BP 103/65 08/19/24 11:28 Pulse Ox 97 08/19/24 11:28 Laboratory Results - last 24 hr 08/19/24 08/19/24 08/19/24 00:00 00:07 11:43 WBC 8.64 RBC 4.21 L Hgb 12.9 L Hct 36.7 L MCV 87 MCH 30.6 MCHC 35.1 RDW 13.5 Plt Count 294 MPV 9.4 Immature Gran % 0.5 Neutrophils % 67.5 Lymphocytes % 23.1 Monocytes % 8.0 Eosinophils % 0.2 Basophils % 0.7 Nucleated RBC % 0.0 Absolute Neutrophils 5.83 Absolute Lymphocytes 2.00 Absolute Monocytes 0.69 Absolute Eosinophils 0.02 Absolute Basophils 0.06 ABG Sample Site Left Radial ABG pH 7.46 H ABG pCO2 28 L ABG pO2 84 ABG HCO3 20 L ABG Total CO2 18 L ABG O2 Saturation 97 ABG Base Excess -4 L VBG Lactate 1.2 Sodium 140 Potassium 3.2 L Chloride 103 Carbon Dioxide 24.4 Anion Gap 12.6 H BUN 28 H Creatinine 1.1 Est GFR (CKD-EPI 2020) 80.77 Glucose 103 Calcium 9.1 Total Bilirubin 0.8 AST 15 ALT 16 Alkaline Phosphatase 99 Total Protein 6.9 Albumin 4.2 Lipase 23 Procalcitonin < 0.10 TSH 2.82 Random Vancomycin 12.5 Salicylates < 2.8 Acetaminophen < 2 Ethyl Alcohol < 3.0 COVID-19 Source Nasopharynx SARS-CoV-2 (PCR) Negative Influenza Type A (PCR) Negative Influenza Type B (PCR) Negative RSV (PCR) Negative Time Spent with Patient Time Spent with Patient: >50 minutes Time was spent: preparing to see the patient(eg.review tests), obtaining and/or reviewing separately otained hiistory, ordering medications,tests, procedures, referring, communicating with other health resident care supervisor, indepentently interpreting results, counseling the patient and care coordination
[2024-08-19 20:09] LABS: MRSA PCR Negative (Negative)
[2024-08-19] MEDS: VANCOMYCIN/WATER (PEG) 1.5 GM/300 ML BAG IV (22:29)
[2024-08-20 06:20] LABS: HCT 31.7 % (40.0-50.0); HGB 11.4 g/dL (13.5-17.5); MCH 31.2 pg (27.0-33.0); MCV 87 fL (80-95); MPV 9.3 fL (8.0-11.0); Platelet Count 243 10^3/uL (130-400); RBC 3.65 10^6/uL (4.36-5.78); RDW 13.4 % (11.8-14.1); RDW-SD 42.1 fL; WBC 7.38 10^3/uL (4.4-10.8)
[2024-08-20 06:52] LABS: ALT 12 U/L (16-63); AST 15 U/L (15-37); Albumin 3.2 g/dL (3.4-5.0); Alkaline Phosphatase 98 U/L (46-116); Anion Gap 9.7 mmol/L (3-11); BUN 14 mg/dL (7-18); Bilirubin, Total 0.4 mg/dL (0.2-1.0); CO2 22.3 mmol/L (21.0-32.0); CREATININE 0.9 mg/dL (0.70-1.30); Calcium 8.4 mg/dL (8.5-10.1); Chloride 109 mmol/L (98-107); Estimated GFR 102.76 (mL/min/1.73m2); Glucose 100 mg/dL (74-106); Magnesium 1.7 mg/dL (1.8-2.4); Potassium 3.4 mmol/L (3.5-5.1); Sodium 141 mmol/L (136-145); Total Protein 5.6 g/dL (6.4-8.2)
[2024-08-20 07:33] VITALS: BP 115/79; RESP 18; TEMP 37.2; O2SAT 98
--- NOTE | 2024-08-20 09:10 | DSE_ITS ---
Date of service: 08/20/24 Time of Service: 09:10 DS: Diagnosis Discharge Diagnosis (1) Accidental overdose of nitrous oxide: Status: Acute (2) Abdominal wall cellulitis: Status: Acute (3) Cellulitis of right thigh: Status: Acute (4) Left lower lobe pneumonia: Status: Acute (5) Hypokalemia: Status: Chronic (6) Anxiety and depression: (7) Substance use disorder: Status: Chronic (8) Multiple sclerosis: Discharge Plan Disposition Patient Disposition: Against Medical Advice Condition: Stable Discharge Details Reason For Visit: Accidental overdose nitrous oxide, Cellulitis... Admit Date/Time: 08/19/24 05:02 Admit Provider: David Marshall Attending Provider: David Marshall Primary Care Provider: Ghulam Garcia Hospital Course Hospital Course: This is a 53-year-old with a past medical history of multiple sclerosis, anxiety and depression, previous alcohol abuse, who presented to the ED via EMS on 08/18/24 s/p nitrous oxide overdose. The patient was found slumped over in his car having defecated and urinated on himself. 2 large 3.3 L bottles of flavored nitrous gas were noted next to him. Febrile in the ED abdominal [place] right thigh cellulitis w/o abscess formation and questionable LLL pneumonia found on workup. The patient was admitted to the medical surgical floor for further treatment and pending blood culture results. Treatment intitatied with Zosyn, Vancomycin, and doxycycline.The patient wanted to leave AMA with 12-16 hours but convinced to stay. This AM the patient left AMA. MRSA nares and blood culture negative, afebrile. Script for antibiotics sent to pharmacy as discussed on 08/19/[address] with patient[address] with Dr[address] Rae [place] Meds and New Rx's Prescriptions: New levofloxacin 750 mg tablet 750 mg PO DAILY Qty: 4 0RF No Action Ocrevus 30 mg/mL solution 600 mg IV [id number] polyethylene glycol 3350 17 gram/dose powder 238 g PO ONCE Qty: 238 0RF Rx Instructions: take per colonoscopy instructions bisacodyl [Dulcolax (bisacodyl)] 5 mg tablet,delayed release (DR/EC) 5 mg PO ONCE Qty: 4 0RF Rx Instructions: take per colonoscopy instructions multivitamin Tablet 1 tab PO DAILY Ocrevus 30 mg/mL solution 300 mg IV [id number] quetiapine 50 mg tablet 50 mg PO BID Patient Comments: TAKE ONE TABLET BY MOUTH TWICE A DAY escitalopram oxalate 10 mg tablet 10 mg PO DAILY Patient Comments: TAKE ONE TABLET BY MOUTH EVERY DAY sildenafil (pulm.hypertension) 20 mg tablet 20 mg PO DAILY PRN Patient Comments: TAKE 2-5 TABLETS BY MOUTH ONCE A DAY NEEDED folic acid 1 mg tablet 1 mg PO DAILY Patient Comments: TAKE ONE TABLET BY MOUTH EVERY DAY ibuprofen 800 mg tablet 800 mg PO DAILY PRN Patient Comments: TAKE ONE TABLET BY MOUTH TWICE A DAY NEEDED, TAKE WITH FOOD OR MILK gabapentin 300 mg capsule 300 mg PO TID acetaminophen 325 mg Tablet 650 mg PO Q6H Qty: 0 0RF Discharge Data Discharge Date/Time-TO BE ENTERED AT DEPARTURE: 08/20/24 08:27 DS: Summary Time Spent with Patient providing and/or coordinating discharge services: Greater than 30 minutes Status at Discharge Functional status at discharge: independent ambulation Overall status at discharge: patient is progressing back to baseline Mental Status: mental status grossly normal Speech and Movement: speech and movement normal and agitated Mood: irritable mood Affect: irritable affect Quality:SDOH Health Related Social Needs: Health related social needs food insecurity (Z59.41), problems finding work (Z56.9) Exam Psych Mental Status: mental status grossly normal Speech and Movement: speech and movement normal and agitated Mood: irritable mood Affect: irritable affect DS: Data Vitals/I&O Vitals and I&O: Vital Signs Temperature 37.2 C 08/20/24 07:33 Temperature Source Temporal Artery Scan 08/20/24 07:33 Pulse 79 08/19/24 20:35 Pulse Rhythm Regular 08/19/24 06:29 Respiratory Rate 18 08/20/24 07:33 Respiratory Effort Normal 08/19/24 06:29 Respiratory Depth Shallow 08/19/24 06:29 Respiratory Pattern Normal 08/19/24 06:29 Blood Pressure 115/79 08/20/24 07:33 Blood Pressure Mean 91 08/20/24 07:33 Blood Pressure Position Sitting 08/18/24 22:45 Pulse Oximetry 98 08/20/24 07:33 Oxygen Delivery Method Room Air 08/20/24 07:33 Oxygen Flow Rate 0 08/20/24 07:33 Pain Level 8 08/19/24 20:35 Comment refused. 08/19/24 23:09 Intake & Output 08/19/24 08/19/24 08/20/24 11:59 23:59 11:59 Intake Total 1700 / 1800 100 / 1800 300 / 300 Output Total 600 / 600 Balance 1700 / 1800 100 / 1800 -300 / -300 Weight 70.307 kg 70.307 kg Intake: IV 1700 / 1800 100 / 1800 300 / 300 Output: Urine 600 / 600 Other: Urine Color Yellow Urine Appearance Clear Urine Odor Sweet Comment Pt voided into toilet, unable to measure at this time. Patient voided ind. in the toilet. Data Completed and Pending Labs on day of discharge: Labs from last 24 hours 08/20/24 08/19/24 08/19/24 06:10 18:06 11:43 WBC 7.38 RBC 3.65 L Hgb 11.4 L Hct 31.7 L MCV 87 MCH 31.2 MCHC 36.0 RDW 13.4 Plt Count 243 MPV 9.3 Sodium 141 Potassium 3.4 L Chloride 109 H Carbon Dioxide 22.3 Anion Gap 9.7 BUN 14 Creatinine 0.9 Est GFR (CKD-EPI 2020) 102.76 Glucose 100 Calcium 8.4 L Magnesium 1.7 L Total Bilirubin 0.4 AST 15 ALT 12 L Alkaline Phosphatase 98 Total Protein 5.6 L Albumin 3.2 L Random Vancomycin 12.5 MRSA (TEM-PCR) Negative Preliminary micro results at discharge 08/19/24 01:30 Blood Blood Culture - Preliminary NO GROWTH 24 HOURS 08/19/24 00:00 Blood Blood Culture - Preliminary NO GROWTH 24 HOURS PFSH All Active Problems (Updated 08/19/24 @ 04:53 by David Marshall) Substance use disorder (Chronic) Hypokalemia (Chronic) Cellulitis of right thigh (Acute) Left lower lobe pneumonia (Acute) Acute dehydration (Acute) Accidental overdose of nitrous oxide (Acute) Chronic ulcer of right thigh (Acute) Abdominal wall cellulitis (Acute) Sepsis (Acute) Multiple sclerosis exacerbation (Acute) Medical History Anxiety and depression Alcohol abuse quit in 04/2024 Erectile dysfunction ADHD Left wrist fracture as a child Fracture of right tibia and fibula approx 2014, s/p ORIF Acetabulum fracture, right Multiple sclerosis Social History Smoking/Tobacco Use Status: Current every day Tobacco Type: e-cigarettes Smoking risk assessment performed?: Yes Alcohol Intake: current Alcohol Intake frequency: holidays/special occasions only Alcohol type: beer Drug use: Daily Substance use type: marijuana Housing: condominium Do you feel safe at home: Yes Do you feel safe in your relationship?: Yes Time Spent with Patient Time Spent with Patient: 70-84 minutes4 Time was spent: preparing to see the patient(eg.review tests), obtaining and/or reviewing separately otained hiistory, ordering medications,tests, procedures, referring, communicating with other health patient care nursing assistant, indepentently interpreting results, counseling the patient and care coordination
== END 2024-08-20 08:27 | disposition left against medical advice (07) | DRG 917 ==
LOC: ER 08-19 05:23 → MS 08-19 06:00
PROVIDERS: Admitting Provider Family Medicine; Emergency Provider Student in an Organized Health Care Education/Training Program; PCP Physician Assistant; Responsible Provider Nurse Practitioner Acute Care; Visit Provider Family Medicine
DX: T41.0X1A Poisoning by inhaled anesthetics, accidental (unintentional), initial encounter (principal); J18.9 Pneumonia, unspecified organism; L03.311 Cellulitis of abdominal wall; L03.115 Cellulitis of right lower limb; E87.6 Hypokalemia; F41.9 Anxiety disorder, unspecified; F32.A Depression, unspecified; G35 Multiple sclerosis; Z79.899 Other long term (current) drug therapy; F19.90 Other psychoactive substance use, unspecified, uncomplicated; E86.0 Dehydration; F10.11 Alcohol abuse, in remission; F90.9 Attention-deficit hyperactivity disorder, unspecified type; F17.290 Nicotine dependence, other tobacco product, uncomplicated; F12.90 Cannabis use, unspecified, uncomplicated
CPT/HCPCS: 00123; 36415; 36416; 36569; 74177; 80053; 82805; 82962; 83690; 84145; 85027; 87040; 87637; 87641; 93005; 96361; 96365; 96367; 96368; 96372; 96375; 99291; J1650; 71045; 71260; 80202; 80320; 80329; 83605; 83735; 84443; 85025; 93010; 99223; 99239; J0131; J0692; J1885; J2543; J3370; J3372; J3420; J3490